=== PATIENT | female | born 1980 | race Caucasian/White ===

== ENCOUNTER 2021-01-14 10:17 | Emergency (ER) | payer OTHER, SELFPAY ==
[2021-01-14 11:21] VITALS: BP 157/88; PULSE 80; RESP 16; TEMP 37.1; O2SAT 100; BMI 23.6
--- NOTE | 2021-01-14 11:48 | ED.GENADULT ---
HPI - General Adult General Chief complaint: General Medical Stated complaint: rabies booster Time Seen by Provider: 01/14/21 11:47 Source: patient Mode of arrival: ambulatory Limitations: no limitations History of Present Illness HPI narrative: [age]-year-old female presenting to the ER for evaluation of a possible bat bite that occurred last night. She reports a history of potential rabies exposure in the past and has had full series of immunoglobulin and vaccine Related Data Home Medications Medication Instructions Recorded Confirmed norethindrone (contraceptive) 0.35 0.35 mg PO DAILY 05/12/20 mg tablet Previous Rx's Medication Instructions Recorded Ventolin HFA 90 mcg/actuation 2 puff PO Q4H PRN #18 g NS 12/31/20 aerosol inhaler (albuterol sulfate) montelukast 10 mg tablet 10 mg PO DAILY #90 tab 12/31/20 Allergies Allergy/AdvReac Type Severity Reaction Status Date / Time vancomycin Allergy Unknown itching Verified 01/14/21 11:20 thorat and wheezing PMFSH Past Medical History Medical History (Updated 05/12/20 @ 09:02 by Bashir Lu MD) Allergic rhinitis Surgical History History of placement of ear tubes History of tonsillectomy and adenoidectomy History of wisdom tooth extraction Family History Family History Father Skin cancer Hypertension CVD (cardiovascular disease) Mother Asthma Sister In good health Social History Social History (Updated 05/12/20 @ 08:45 by SABRINA Jenkins) Alcohol intake: current Alcohol intake frequency: a few times a week Physical Exam Vital Signs: Vital Signs: Last Vital Signs Temp 98.7 F 01/14/21 11:21 Pulse 80 01/14/21 11:21 Resp 16 01/14/21 11:21 BP 157/88 H 01/14/21 11:21 Pulse Ox 100 01/14/21 11:21 Body Mass Index 23.6 Discharge Plan Discharge Prescriptions: No Action montelukast 10 mg tablet 10 mg PO DAILY Qty: 90 RF: 1 albuterol sulfate [Ventolin HFA] 90 mcg/actuation HFA aerosol inhaler 2 puff PO Q4H PRN (Reason: for wheezing) Qty: 18 RF: 2
--- NOTE | 2021-01-14 12:08 | ED.GENADULT ---
HPI - General Adult General Chief complaint: General Medical Stated complaint: rabies booster Time Seen by Provider: 01/14/21 11:47 Source: patient Mode of arrival: ambulatory Limitations: no limitations History of Present Illness HPI narrative: Patient comes to the emergency room complaining a possible bat bite to her right hand. Patient states that yesterday she noticed there was something flying in her house, this morning she woke up with 2 small puncture wounds to the dorsum of the right hand. Patient states that in 2009 she had her full series of rabies vaccine including immune globulin. Then approximately 4 years ago, she had a booster on day 0 and 3 after she was bitten by an animal. Related Data Home Medications Medication Instructions Recorded Confirmed norethindrone (contraceptive) 0.35 0.35 mg PO DAILY 05/12/20 mg tablet Previous Rx's Medication Instructions Recorded Ventolin HFA 90 mcg/actuation 2 puff PO Q4H PRN #18 g NS 12/31/20 aerosol inhaler (albuterol sulfate) montelukast 10 mg tablet 10 mg PO DAILY #90 tab 12/31/20 Allergies Allergy/AdvReac Type Severity Reaction Status Date / Time vancomycin Allergy Unknown itching Verified 01/14/21 11:20 thorat and wheezing Review of Systems Review of Systems: Constitutional : No Weight loss, No Fever, No Chills, No Night Sweats, No Fatigue, No Malaise ENT/Mouth : No Hearing loss, No Ear Pain, No Nasal Congestion, No Sinus Pain, No Hoarseness, No sore throat, No Rhinorrhea, No Swallowing Difficulty Eyes: No Eye Pain, No Swelling, No Redness, No Foreign Body, No Discharge, No Vision Changes Cardiovascular : No Chest Pain, No SOB, No Dyspnea on Exertion, No Orthopnea, No Edema, No Palpitations Respiratory : No Cough, No Sputum, No Wheezing, No Smoke Exposure, No Dyspnea Gastrointestinal : No Nausea, No Vomiting, No Diarrhea, No Constipation, No abdominal Pain, No Hematochezia, No Melena Genitourinary : no irregular bleeding, No Dysuria, No Urinary Frequency, No Hematuria, No Urinary Incontinence, No Urgency, No Flank Pain, No Urinary Flow Changes, No Hesitancy Musculoskeletal : No joint pain, No Myalgias, No Joint Swelling Skin : 2 possible puncture wounds to the right hand Neuro : No Weakness, No Numbness, No Paresthesias, No Loss of Consciousness, No Dizziness, No Headache Psych : No Anxiety/Panic, No Depression, No SI/HI/AH/VH, No Social Issues, Heme/Lymph: No Bruising, No Bleeding,No Lymphadenopathy Endocrine : No Polyuria, No Polydipsia, No Temperature Intolerance [facility] Past Medical History Medical History Allergic rhinitis Surgical History History of placement of ear tubes History of tonsillectomy and adenoidectomy History of wisdom tooth extraction Family History Family History Father Skin cancer Hypertension CVD (cardiovascular disease) Mother Asthma Sister In good health Social History Social History (Updated 05/12/20 @ 08:45 by Morro Delgado [facility]) Alcohol intake: current Alcohol intake frequency: a few times a week Advance Directives: No Advance Directives Information Provided: No Physical Exam Vital Signs: Vital Signs: Last Vital Signs Temp 98.7 F 01/14/21 11:21 Pulse 80 01/14/21 11:21 Resp 16 01/14/21 11:21 BP 157/88 H 01/14/21 11:21 Pulse Ox 100 01/14/21 11:21 Body Mass Index 23.6 Const: Other: Appearance: Alert. Oriented X3. No acute distress. Eyes: Pupils equal, round and reactive to light. ENT: Pharynx normal. Neck: Normal inspection. Neck supple. No lymph nodes noted. No crepitus CVS: Normal heart rate and rhythm. Pulses normal. Normal S1 and S2 Respiratory: No respiratory distress. Breath sounds normal. No Wheezing. No rales Abdomen: Soft and nontender. No rigidity. No distention. good BS x4 Skin: Skin warm and dry. To the dorsum of the right hand there are 2 small puncture-like wound like injuries, no surrounding cellulitis Extremities: No lower extremity edema. No lower extremity edema. No Lacerations. No Rash Neuro: Oriented X 3. No motor deficit. No sensory deficit. Moving all extermities. No slurred speech. Course Course Course Narrative: I discussed the patient with Dr. Michael from Infectious Disease. Given the dates of the patient's previous immunizations and possible exposure to rabies from a bat bite Dr. Michael recommends to the immunoglobulin and the vaccination series on day 0, 3, 7, 14. Patient refuses to follow this recommendations, refuses immune globulin, she will only get the booster on day 0 and day 3. Patient has two possible puncture wounds to the right hand. It was explained to the patient that bats usually avoid bitting people, if the patient that actually bitten, there is a high possibility that the bat has rabies. Patient will be scheduled for blisters in short-stay on days 3, 7, 14. Patient was encouraged to follow Dr. Michael's recommendations. As mentioned above, patient states that she will only show up to the blister on day 3. Discharge Plan Discharge Clinical Impression: Rabies exposure Patient Disposition: Home, Self-Care Instructions: Rabies (ED), Rabies Vaccine (By injection) Additional Instructions: Our Infectious Disease doctor recommended that you get immunoglobulin and the full rabies vaccines. You declined immune globulin. You have been scheduled for outpatient blisters on day 3, 7, 14. Please follow-up with your primary care physician tomorrow. If you have any worsening or new symptoms, please return to the emergency room or call 911 Prescriptions: No Action montelukast 10 mg tablet 10 mg PO DAILY Qty: 90 RF: 1 albuterol sulfate [Ventolin HFA] 90 mcg/actuation HFA aerosol inhaler 2 puff PO Q4H PRN (Reason: for wheezing) Qty: 18 RF: 2
[2021-01-14] MEDS: Rabies Vaccine (PCEC)/PF 1 ML VIAL IM (14:09)
== END 2021-01-14 14:13 | disposition home or self-care (01) ==
PROVIDERS: Emergency Provider Emergency Medicine; PCP Internal Medicine
DX: Z20.3 Contact with and (suspected) exposure to rabies (principal); Z29.14 Encounter for prophylactic rabies immune globulin
CPT/HCPCS: 90471; 90675; 99283; 99284

== ENCOUNTER 2021-01-17 09:58 | Outpatient (REF) | payer OTHER, SELFPAY | END 2021-01-17 09:59 | disposition home or self-care (01) | LOC: HO.MDS 09:58 | PROVIDERS: PCP Internal Medicine | DX: Z29.14 Encounter for prophylactic rabies immune globulin (principal); S61.431D Puncture wound without foreign body of right hand, subsequent encounter; W53.81XD Bitten by other rodent, subsequent encounter; Z20.3 Contact with and (suspected) exposure to rabies | CPT/HCPCS: 90471; 90675 ==

== ENCOUNTER 2021-05-28 08:05 | Outpatient (REF) | payer OTHER, SELFPAY ==
[2021-05-28 11:02] LABS: MANUAL DIFF FLAG NO
[2021-05-28 11:08] LABS: Basophils Percent Auto 0.5 % (0-2); Eosinophils Percent Auto 0.1 % (0-4); Hematocrit 43.7 % (37.0-47.0); Hemoglobin 14.7 g/dl (12.0-16.0); Imm Gran Abs Auto 0.04 X10*3/uL (0.00-0.03); Imm Gran Pct Auto 0.5 % (0.0-0.4); Lymphocytes Absolute Auto 2.8 X10*3/uL (1.2-4.9); Lymphocytes Percent Auto 35.7 % (20-40); Mean Corpuscular HGB Conc 33.6 g/dl (31.0-35.0); Mean Platelet Volume 10.6 fL (9.4-12.3); Monocytes Absolute Auto 0.7 X10*3/uL (0.1-1.2); Monocytes Percent Auto 9.1 % (2-11); Neutrophils Absolute Auto 4.2 x10*3/uL (2.0-8.3); Neutrophils Percent Auto 54.1 % (45-73); Platelet Count 344 X10*3/uL (160-400); Red Blood Count 4.46 X10*6/uL (4.20-5.50); Red Cell Distribution Width 12.5 % (11.0-16.0); White Blood Count 7.7 X10*3/uL (4.8-10.8)
[2021-05-28 11:37] LABS: Alanine Aminotransferase 17 U/L (0-31); Albumin Level 4.4 g/dL (3.5-5.0); Alkaline Phosphatase 58 U/L (39-117); Anion Gap 11 (12-20); Aspartate Amino Transferase 17 U/L (5-31); Bilirubin Total 1.1 mg/dL (0.0-1.0); Blood Urea Nitrogen 12 mg/dL (9-16); Calcium 9.3 mg/dL (8.4-10.2); Carbon Dioxide 24 mmol/L (22-29); Chloride 107 mmol/L (96-108); Cholesterol 178 mg/dL; Estimated Glomerular Filt Rate > 60; Glucose Fasting 88 mg/dL (60-99); HDL Cholesterol 58 mg/dL; LDL Cholesterol Calculated 109 mg/dl; Potassium 4.7 mmol/L (3.3-5.1); Sodium 137 mmol/L (135-145); Total Protein 6.9 g/dL (6.5-8.0); Triglycerides 56 mg/dL
== END 2021-05-28 08:06 | disposition home or self-care (01) ==
LOC: HO.10HDL 08:05
PROVIDERS: Visit Provider Internal Medicine
DX: Z00.00 Encounter for general adult medical examination without abnormal findings (principal); J45.40 Moderate persistent asthma, uncomplicated
CPT/HCPCS: 36415; 80053; 80061; 85025

== ENCOUNTER 2021-06-19 07:49 | Outpatient (REF) | payer OTHER, SELFPAY ==
--- NOTE | 2021-06-19 14:51 | PFT_ITS ---
INDICATION: Asthma. SPIROMETRY: FEV1 to FVC of 85% with an FEV1 of 3.49 L with 115% predicted and an FVC of 4.1 L, which is 110% predicted. No significant response to bronchodilators noted. Maximum voluntary ventilation 121% predicted. LUNG VOLUMES: Total lung capacity 106% predicted. DIFFUSION CAPACITY: DLCO 170% predicted. COMPARISONS: None. INTERPRETATION: No obstructive nor restrictive ventilatory defects identified. No significant response to bronchodilators noted. Normal maximum voluntary ventilation. Normal lung volumes, in addition, to normal diffusion capacity. This is consistent with normal lung mechanics. If asthma is in the differential, methacholine challenge may be helpful in assessing for hyper-reactive airways, otherwise clinical correlation warranted. Jamie Nuno MD MR/MODL / [id number]
[2021-06-19 15:27] LABS: MANUAL DIFF FLAG NO
[2021-06-19 15:41] LABS: Basophils Percent Auto 0.3 % (0-2); Hematocrit 41.7 % (37.0-47.0); Hemoglobin 13.9 g/dl (12.0-16.0); Imm Gran Abs Auto 0.03 X10*3/uL (0.00-0.03); Imm Gran Pct Auto 0.3 % (0.0-0.4); Lymphocytes Percent Auto 31.4 % (20-40); Mean Corpuscular HGB Conc 33.3 g/dl (31.0-35.0); Mean Corpuscular Hemoglobin 33.1 pg (27.0-33.0); Mean Corpuscular Volume 99.3 fL (80.0-98.0); Mean Platelet Volume 10.1 fL (9.4-12.3); Monocytes Absolute Auto 0.6 X10*3/uL (0.1-1.2); Monocytes Percent Auto 6.7 % (2-11); Neutrophils Absolute Auto 5.8 x10*3/uL (2.0-8.3); Neutrophils Percent Auto 61.3 % (45-73); Platelet Count 352 X10*3/uL (160-400); White Blood Count 9.4 X10*3/uL (4.8-10.8)
== END 2021-06-19 07:50 | disposition home or self-care (01) ==
LOC: HO.RESP 07:49
PROVIDERS: Absent Provider Internal Medicine Pulmonary Disease; PCP Internal Medicine; Visit Provider Internal Medicine
DX: J45.40 Moderate persistent asthma, uncomplicated (principal)
CPT/HCPCS: 36415; 82785; 85025; 86003; 94060; 94727; 94729

== ENCOUNTER → 2021-07-03 15:29 | Outpatient (BNVA) | payer OTHER, SELFPAY | PROVIDERS: PCP Internal Medicine; Visit Provider Internal Medicine Pulmonary Disease | DX: Z13.89 Encounter for screening for other disorder (principal) ==

== ENCOUNTER 2023-02-14 12:53 | Outpatient (REF) | payer OTHER, SELFPAY ==
[2023-02-14 13:10] LABS: MANUAL DIFF FLAG NO
[2023-02-14 14:45] LABS: Basophils Percent Auto 0.4 % (0-2); Hematocrit 41.3 % (37.0-47.0); Hemoglobin 14.2 g/dl (12.0-16.0); Imm Gran Abs Auto 0.04 X10*3/uL (0.00-0.03); Imm Gran Pct Auto 0.4 % (0.0-0.4); Lymphocytes Absolute Auto 3.4 X10*3/uL (1.2-4.9); Lymphocytes Percent Auto 31.4 % (20-40); Mean Corpuscular HGB Conc 34.4 g/dl (31.0-35.0); Mean Corpuscular Hemoglobin 32.6 pg (27.0-33.0); Mean Corpuscular Volume 94.7 fL (80.0-98.0); Mean Platelet Volume 10.8 fL (9.4-12.3); Monocytes Absolute Auto 0.6 X10*3/uL (0.1-1.2); Monocytes Percent Auto 5.2 % (2-11); Neutrophils Absolute Auto 6.7 x10*3/uL (2.0-8.3); Neutrophils Percent Auto 62.6 % (45-73); Platelet Count 341 X10*3/uL (160-400); Red Blood Count 4.36 X10*6/uL (4.20-5.50); Red Cell Distribution Width 11.6 % (11.0-16.0); White Blood Count 10.7 X10*3/uL (4.8-10.8)
[2023-02-14 15:19] LABS: Alanine Aminotransferase 17 U/L (0-31); Albumin Level 4.3 g/dL (3.5-5.0); Alkaline Phosphatase 52 U/L (39-117); Anion Gap 13 (12-20); Aspartate Amino Transferase 22 U/L (5-31); Bilirubin Total 0.3 mg/dL (0.0-1.0); Blood Urea Nitrogen 10 mg/dL (9-16); Calcium 9.1 mg/dL (8.4-10.2); Carbon Dioxide 25 mmol/L (22-29); Chloride 105 mmol/L (96-108); Cholesterol 198 mg/dL (<200); Estimated Glomerular Filt Rate > 60; Glucose Fasting 93 mg/dL (60-99); HDL Cholesterol 57 mg/dL (>40); LDL Cholesterol Calculated 127 mg/dL (<100); Potassium 3.5 mmol/L (3.3-5.1); Sodium 139 mmol/L (135-145); Total Protein 7.3 g/dL (6.5-8.0); Triglycerides 72 mg/dL (<150)
[2023-02-14 15:35] LABS: TSH reflex Free T4 1.35 uIU/mL (0.32-4.0)
[2023-02-14 15:46] LABS: Folate 12.6 ng/mL (> or = 4.0); Vitamin B12 731 pg/mL (200-900)
== END 2023-02-14 12:54 | disposition home or self-care (01) ==
LOC: HO.LAB 12:53
PROVIDERS: PCP Internal Medicine; Visit Provider Nurse Practitioner Family
DX: Z00.00 Encounter for general adult medical examination without abnormal findings (principal); Z13.1 Encounter for screening for diabetes mellitus; Z13.29 Encounter for screening for other suspected endocrine disorder; Z13.220 Encounter for screening for lipoid disorders; Z20.2 Contact with and (suspected) exposure to infections with a predominantly sexual mode of transmission; E55.9 Vitamin D deficiency, unspecified; J45.40 Moderate persistent asthma, uncomplicated; Z91.09 Other allergy status, other than to drugs and biological substances
CPT/HCPCS: 36415; 80053; 80061; 82306; 82607; 82746; 84443; 85025

== ENCOUNTER 2023-12-13 09:25 | Outpatient (AMB) | payer OTHER, SELFPAY ==
--- NOTE | 2023-12-13 09:27 | MHC.PC.OV ---
Vital Signs 12/13/23 09:28 Height 5 ft 4 in Weight 127 lb BMI 21.8 BP 138/86 Blood Pressure Location Lt brachial Position Sitting Intake Visit Reasons: persistent headaches Intake Note: Persistent headaches, anxious, had a concussion Film Sorter Required: No Accompanied by: Self / Same As Patient Allergies vancomycin Allergy (Unknown, Verified 12/13/23 09:40) itching thorat and wheezing Medication List - Last Reconciled 12/13/23 by Emma Jarvis MD albuterol sulfate 90 mcg/actuation 2 puffs inhalation Q4-6H PRN cholecalciferol (vitamin D3) 25 mcg PO DAILY montelukast 10 mg PO DAILY Tobacco use date assessed: 12/13/23 Dental Screening Dental Screen Date: 12/13/23 Did you have a dental visit in the last 12 months?: Yes Did you have a dental problem in the last 6 months where you did not have access to dental care?: No Was dental information given to patient?: Patient has dentist HPI HPI Comments History of Present Illness Details This is a 43-year-old female that comes today complaining of persistent headaches that starts in the occiput and radiate to the temples bilateral and this started after an incident that happened 10/13/2023 in which a dog jump on her head. She went to emergency room at [facility] and had head CT and neck CT that were negative. Since then she has been having daily headaches. She also has noticed light sensitivity and forgetting basic words when trying to talk. Has fatigue and tiredness. Has developed mild major depression and anxiety as well as occasional panic attacks. The neck pain radiates to the shoulders but has full active range of motion. Had numbness at the beginning but not anymore. She also has chest tightness that happens at rest and I will order EKG. For the headaches and depression I will start her on amitriptyline at bedtime for migraine prophylaxis also. Will also give magnesium and sumatriptan as needed. Will be referred to Neurology and MRI of the brain will be ordered. For the anxiety I will give her a benzodiazepine as needed and patient is aware that it can cause addiction, sedation and memory loss. I will refer her to physical therapy for her neck pain. Will give her Flexeril because it has helped in the past. [facility] Medical History (Updated 12/13/23 @ 12:22 by Emma Jarvis MD) Moderate persistent asthma, uncomplicated Allergic rhinitis Surgical History History of delivery History of esophagogastroduodenoscopy (EGD) History of breast biopsy History of wisdom tooth extraction History of placement of ear tubes History of tonsillectomy and adenoidectomy Family History Father Skin cancer Hypertension CVD (cardiovascular disease) Mother Asthma Hypothyroidism Sister In good health Social History Housing: House Alcohol intake: current Alcohol intake frequency: a few times a week Alcohol type: wine and hard liquor Patient Tobacco Use Status: Never used Tobacco e-Cigarette/Vaping Use: Currently Using (sometimes) Second Hand Smoke Exposure: No service: No Current occupational status: employed Current occupational exposures/hazards: No Cognitive needs: No Hearing needs: No Vision needs: No Questionnaire PHQ-9 Over the last 2 weeks, how often have you been bothered by any of the following problems? 1. Little interest or pleasure in doing things: not at all 2. Feeling down, depressed, or hopeless: not at all 3. Trouble falling or staying asleep, or sleeping too much: several days 4. Feeling tired or having little energy: several days 5. Poor appetite or overeating: not at all 6. Feeling bad about yourself - or that you are a failure or have let yourself or your family down: not at all 7. Trouble concentrating on things, such as reading the newspaper or watching television: several days 8. Moving or speaking so slowly that other people could have noticed. Or the opposite - being so fidgety or restless that you have been moving around a lot more than usual: several days 9. Thoughts that you would be better off or of hurting yourself in some way: not at all Total score: 4 Depression Screening Interpretation: Positive Depression Screening Follow-up: Existing condition, New Medication prescribed and Follow-up Visit Requested Depression Screening Done: Yes [id number] - PHQ-9 Billing: Yes Source: Developed by Drs. Tomy Quesada, Clarisa BJani Rivers and colleagues, with an educational connor from [employer]. Thrive Questionnaire Date Thrive assessed: 12/13/23 I am a: Patient What is your living situation today?: I have a steady place to live Within the past 12 months, did the food you bought not last and you didn't have the money to get more?: Never true Within the past 12 months, did you worry whether your food would run out before you got money to buy more?: Never true Do you have trouble paying for medicines?: No Do you have trouble getting transportation to medical appointments?: No Do you have trouble paying your heating and electricity bill?: No Do you have trouble taking care of your child, family member or friend?: No Do you have trouble with day-to-day activities such as bathing, preparing meals, shopping, managing finances, etc.?: No Are you currently unemployed and looking for a job?: No Are you interested in more education?: No Please select the resources that you would like help with: None Currently or been in a relationship where the following occur: No concerns reported THRIVE Score: 0 AUDIT C Alcohol Use Questionnaire (AUDIT-C) 1. How often do you have a drink containing alcohol?: 4 or more times a week 2. How many drinks containing alcohol do you have on a typical day when you are drinking?: 1 or 2 3. How often do you have six or more drinks on one occasion?: Never Total Score: 4 JENNIFER-7 AMB Questionnaire JENNIFER-7 Date JENNIFER - 7 assessed: 12/13/23 Feeling nervous, anxious, or on edge: 2 = More than half the days Not being able to stop or control worryin = Not at all Worrying too much about different things: 0 = Not at all Trouble relaxin = Several days Being so restless that it is hard to sit still: 1 = Several days Becoming easily annoyed or irritable: 3 = Nearly every day Feeling afraid as if something awful might happen: 0 = Not at all Total JENNIFER-7 score (0-4 normal; 5-9 mild; 10-14 moderate; 15-21 severe): 7 Source: Developed by Drs. Tomy Quesada, Jani Cifuentes and colleagues, with an educational connor from [employer]. JENNIFER-7 Assessment Billing JENNIFER-7 Assessment Tool: JENNIFER-7 Assessment 01409 Review of Systems Const All systems reviewed & are unremarkable except as noted in HPI and below Reports fatigue, Reports headache(s) and Reports poor appetite ENT Reports headache(s) and Reports neck pain Card Reports chest pain at rest, Denies chest pain with activity, Denies edema, Denies irregular heart rhythm, Denies claudication, Denies dyspnea, Denies dyspnea on exertion, Denies orthopnea, Denies paroxysmal nocturnal dyspnea and Denies slow heart rate Resp Denies cough, Denies dyspnea and Denies dyspnea on exertion GI Denies abdominal pain, Denies change in bowel habits, Denies excessive flatus, Denies nausea and Denies vomiting Musc Reports neck pain Skin/Breast Reports alopecia Neuro Reports confusion and Reports headache(s) Psych Reports abnormal sleep pattern, Reports anxiety, Reports confusion, Reports depression and Reports panic attacks Endo Reports fatigue Physical exam (Primary Care) Vital Signs: Last Vital Signs BP 138/86 12/13/23 09:28 BMI result Body Mass Index 21.8 Tobacco/Smoking Status: Tobacco use Status Tobacco use date assessed 12/13/23 12/13/23 09:34 Patient Tobacco Use Status Never used Tobacco 12/13/23 09:34 e-Cigarette/Vaping Use Currently Using (sometimes) 12/13/23 09:34 PHQ-9: PHQ-9 Score PHQ-9: Total score 4 12/13/23 09:43 Depression Screening Interpretation: Positive Depression Screening Follow-up: Existing condition, New Medication prescribed and Follow-up Visit Requested Thrive Assessment: Date of Thrive Assessment Date Thrive assessed 12/13/23 12/13/23 09:34 Currently or been in a relationship where the following occur: No concerns reported Const General: confusion Orientation/consciousness: confusion Eyes Alignment and Position: alignment normal Pupils: Equal, round and reactive pupils present Neck Neck: Yes normal visual inspection and Yes supple Resp Effort & Inspection: normal respiratory effort Auscultation: clear to auscultation bilaterally Cardio Jugular venous distension: no JVD Rate: regular rate Rhythm: regular rhythm Heart sounds: S1 normal heart sound present and S2 normal heart sound present Neuro General: no focal motor deficits and confusion Cranial nerves: Yes Equal, round and reactive pupils present Cognition (Neuro): normal cognition Gait exam (Neuro): Normal gait present Motor exam (neuro): 5/5 motor strength present throughout Extrem General: Yes full ROM Assessment and Plan Assessment & Plan (1) Persistent headaches: Code(s): R51.9 - Headache, unspecified Plan: Start amitriptyline at bedtime for migraine prophylaxis. Start sumatriptan as needed. Start magnesium at bedtime. MRI of the brain ordered. Referred to neurology. (2) Neck pain: Code(s): M54.2 - Cervicalgia Plan: Start physical therapy. Start cyclobenzaprine as needed. (3) Hair loss: Code(s): L65.9 - Nonscarring hair loss, unspecified Plan: TSH ordered. (4) Chest pain: Code(s): R07.9 - Chest pain, unspecified Qualifiers: Chest pain type: chest pain on breathing Qualified Code(s): R07.1 - Chest pain on breathing Plan: EKG ordered. (5) Mild major depression: Code(s): F32.0 - Major depressive disorder, single episode, mild Plan: Start amitriptyline. (6) JENNIFER (generalized anxiety disorder): Code(s): F41.1 - Generalized anxiety disorder Plan: Start benzodiazepines as needed. Orders: Orders Thyroid Stimulating Hormone Today L65.9 - Nonscarring hair loss, unspecified Complete Blood Count Auto Diff Today R51.9 - Headache, unspecified ECG 12 lead EKG Today R07.9 - Chest pain, unspecified MR head/brain wo con Today R51.9 - Headache, unspecified Vitamin D 25-OH Total Today E55.9 - Vitamin D deficiency, unspecified Comprehensive Met. Panel Today R51.9 - Headache, unspecified PT Evaluation and Treatment Today M54.2 - Cervicalgia Referrals Neurology Referral R51.9 - Headache, unspecified Medications: New lorazepam 0.5 mg PO DAILY 30 days PRN 20 tabs 0RF anxiety sumatriptan succinate do not exceed 8 doses per 24 hrs 25 mg PO Q2-4H 30 days PRN 9 tabs 2RF migraine headache R51.9 - Headache, unspecified cyclobenzaprine 10 mg PO BEDTIME 30 days PRN 30 tabs 0RF muscle spasm amitriptyline 10 mg PO BEDTIME 90 days 90 tabs 0RF R51.9 - Headache, unspecified magnesium oxide 400 mg PO DAILY 30 days 30 tabs 0RF R51.9 - Headache, unspecified Coding Level of Care Code Est Pt Level 4 (30943) Complex EM visit Add On G2211 Diagnoses Persistent headaches R51.9 Neck pain M54.2 Hair loss L65.9 Chest pain on breathing R07.1 Chest pain type: chest pain on breathing Mild major depression F32.0 JENNIFER (generalized anxiety disorder) F41.1 Additional Codes JENNIFER-7 Assessment Billing - JENNIFER-7 Assessment Tool: JENNIFER-7 Assessment 04034 ([id number]) Time Spent (min) 25
[2023-12-13 09:28] VITALS: BP 138/86; BMI 21.8
== END 2023-12-13 10:01 | disposition home or self-care (01) ==
PROVIDERS: PCP Internal Medicine; Visit Provider Internal Medicine
DX: R51.9 Headache, unspecified (principal); M54.2 Cervicalgia; L65.9 Nonscarring hair loss, unspecified; R07.1 Chest pain on breathing; F32.0 Major depressive disorder, single episode, mild; F41.1 Generalized anxiety disorder
CPT/HCPCS: 96127; 99214; G2211

== ENCOUNTER 2023-12-19 10:27 | Outpatient (REF) | payer OTHER, SELFPAY ==
[2023-12-19 13:18] LABS: MANUAL DIFF FLAG NO
[2023-12-19 13:26] LABS: Basophils Percent Auto 0.6 % (0-2); Hematocrit 40.3 % (37.0-47.0); Imm Gran Abs Auto 0.01 X10*3/uL (0.00-0.03); Imm Gran Pct Auto 0.2 % (0.0-0.4); Lymphocytes Absolute Auto 2.2 X10*3/uL (1.2-4.9); Lymphocytes Percent Auto 44.2 % (20-40); Mean Corpuscular HGB Conc 34.7 g/dl (31.0-35.0); Mean Corpuscular Hemoglobin 33.8 pg (27.0-33.0); Mean Corpuscular Volume 97.3 fL (80.0-98.0); Mean Platelet Volume 10.6 fL (9.4-12.3); Monocytes Absolute Auto 0.4 X10*3/uL (0.1-1.2); Monocytes Percent Auto 8.4 % (2-11); Neutrophils Absolute Auto 2.3 x10*3/uL (2.0-8.3); Neutrophils Percent Auto 46.6 % (45-73); Platelet Count 286 X10*3/uL (160-400); Red Blood Count 4.14 X10*6/uL (4.20-5.50); Red Cell Distribution Width 12.3 % (11.0-16.0); White Blood Count 4.9 X10*3/uL (4.8-10.8)
[2023-12-19 13:56] LABS: Alanine Aminotransferase 22 U/L (0-31); Albumin Level 4.5 g/dL (3.5-5.0); Alkaline Phosphatase 55 U/L (39-117); Anion Gap 12 (12-20); Aspartate Amino Transferase 23 U/L (5-31); Bilirubin Total 0.6 mg/dL (0.0-1.0); Blood Urea Nitrogen 11 mg/dL (9-16); Calcium 9.5 mg/dL (8.4-10.2); Carbon Dioxide 25 mmol/L (22-29); Chloride 107 mmol/L (96-108); Estimated Glomerular Filt Rate > 60; Glucose Random 99 mg/dL (60-115); Potassium 4.4 mmol/L (3.3-5.1); Sodium 140 mmol/L (135-145); Total Protein 7.2 g/dL (6.5-8.0)
[2023-12-19 14:06] LABS: Thyroid Stimulating Hormone 1.64 uIU/mL (0.32-4.0); Vitamin D 25-OH Total 32.6 ng/mL (>30)
== END 2023-12-19 10:28 | disposition home or self-care (01) ==
LOC: HO.10HDL 10:27
PROVIDERS: Visit Provider Internal Medicine
DX: E55.9 Vitamin D deficiency, unspecified (principal); R51.9 Headache, unspecified; L65.9 Nonscarring hair loss, unspecified
CPT/HCPCS: 36415; 80053; 82306; 84443; 85025

== ENCOUNTER 2024-01-02 19:50 | Outpatient (REF) | payer OTHER, SELFPAY ==
--- NOTE | ~2024-01-02 | MR_ITS ---
EXAMINATION: MR BRAIN WITHOUT CONTRAST CLINICAL INFORMATION: Headache. COMPARISON: None available. TECHNIQUE: MRI of the brain was obtained using routine sequences without contrast. FINDINGS: No restricted diffusion. No acute intracranial hemorrhage, mass effect, midline shift, hydrocephalus or herniation. Mendoza-white matter differentiation is normal. Posterior cranial fossa contents demonstrated no acute abnormality or signal abnormality. Sellar/suprasellar region is normal. Craniocervical junction is normal. Flow-void signal within the mean cerebral vessels is normal. MR/MR head/brain wo con IMPRESSION: No acute or structural brain abnormality. Electronically signed by: Chema Phan MD 02/02/2024 03:42 PM EDT
== END 2024-01-02 19:51 | disposition home or self-care (01) ==
LOC: HO.MRI 19:50
PROVIDERS: PCP Internal Medicine; Visit Provider Internal Medicine
DX: R51.9 Headache, unspecified (principal)
CPT/HCPCS: 70551

== ENCOUNTER → 2024-01-02 19:50 | Outpatient (BNV) | payer OTHER, SELFPAY | PROVIDERS: PCP Internal Medicine; Visit Provider Radiology Diagnostic Radiology | DX: R51.9 Headache, unspecified (principal) | CPT/HCPCS: 70551 ==

== ENCOUNTER 2024-02-24 08:03 | Outpatient (REF) | payer OTHER, SELFPAY ==
[2024-02-24 08:23] LABS: MANUAL DIFF FLAG NO
[2024-02-24 08:48] LABS: Basophils Percent Auto 0.5 % (0-2); Eosinophils Percent Auto 0.2 % (0-4); Hematocrit 39.9 % (37.0-47.0); Hemoglobin 13.7 g/dl (12.0-16.0); Imm Gran Abs Auto 0.01 X10*3/uL (0.00-0.03); Imm Gran Pct Auto 0.2 % (0.0-0.4); Lymphocytes Absolute Auto 2.3 X10*3/uL (1.2-4.9); Lymphocytes Percent Auto 37.6 % (20-40); Mean Corpuscular HGB Conc 34.3 g/dl (31.0-35.0); Mean Corpuscular Hemoglobin 32.6 pg (27.0-33.0); Mean Platelet Volume 10.3 fL (9.4-12.3); Monocytes Absolute Auto 0.5 X10*3/uL (0.1-1.2); Monocytes Percent Auto 8.6 % (2-11); Neutrophils Absolute Auto 3.3 x10*3/uL (2.0-8.3); Neutrophils Percent Auto 52.9 % (45-73); Platelet Count 319 X10*3/uL (160-400); Red Cell Distribution Width 11.9 % (11.0-16.0); White Blood Count 6.2 X10*3/uL (4.8-10.8)
[2024-02-24 09:15] LABS: Alanine Aminotransferase 40 U/L (0-31); Albumin Level 4.4 g/dL (3.5-5.0); Alkaline Phosphatase 63 U/L (39-117); Anion Gap 10 (12-20); Aspartate Amino Transferase 29 U/L (5-31); Bilirubin Total 0.7 mg/dL (0.0-1.0); Blood Urea Nitrogen 11 mg/dL (9-16); Calcium 9.3 mg/dL (8.4-10.2); Carbon Dioxide 24 mmol/L (22-29); Chloride 108 mmol/L (96-108); Estimated Glomerular Filt Rate > 60; Glucose Random 99 mg/dL (60-115); Potassium 4.3 mmol/L (3.3-5.1); Sodium 138 mmol/L (135-145); Total Protein 6.7 g/dL (6.5-8.0)
== END 2024-02-24 08:04 | disposition home or self-care (01) ==
LOC: HO.LAB 08:03
PROVIDERS: Nurse Practitioner Family; PCP Internal Medicine; Visit Provider Internal Medicine
DX: E27.40 Unspecified adrenocortical insufficiency (principal); R79.89 Other specified abnormal findings of blood chemistry
CPT/HCPCS: 36415; 80053; 82306; 85025

== ENCOUNTER 2024-02-25 11:15 | Outpatient (REF) | payer OTHER, SELFPAY | END 2024-02-25 11:16 | disposition home or self-care (01) | LOC: HO.LNP 11:15 | PROVIDERS: Visit Provider Internal Medicine | DX: Z13.89 Encounter for screening for other disorder (principal) ==

== ENCOUNTER 2024-03-06 17:23 | Outpatient (AMB) | payer OTHER, SELFPAY ==
[2024-03-06 17:27] VITALS: BP 122/80; BMI 21.3
--- NOTE | 2024-03-06 17:27 | A.OFFPC_ITS ---
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 Required: No Accompanied by: Self / Same As Patient Allergies vancomycin Allergy (Unknown, Verified 03/06/24 17:36) itching thorat and wheezing amitriptyline Adverse Reaction (Intermediate, Verified 03/06/24 17:42) tiredness sumatriptan Adverse Reaction (Intermediate, Verified 03/06/24 17:42) over alert Medication List - Last Reconciled 03/06/24 by Emma Jarvis MD albuterol sulfate 90 mcg/actuation 2 puffs inhalation Q4-6H PRN cholecalciferol (vitamin D3) 25 mcg PO DAILY cyclobenzaprine 10 mg PO BEDTIME PRN 30 days lorazepam 0.5 mg PO DAILY PRN 30 days magnesium oxide 400 mg PO DAILY 30 days montelukast 10 mg PO DAILY sumatriptan succinate 25 mg PO Q2-4H PRN 30 days Tobacco use date assessed: 12/13/23 Dental Screening Dental Screen Date: 12/13/23 HPI HPI Comments History of Present Illness Details The patient is a 43-year-old female presenting coming for her physical exam with ongoing low-level tension headaches and neck discomfort. These symptoms have improved following physical therapy but persist as a dull tension sensation. She expresses experiencing heightened alertness and emotional discomfort after taking Sumatriptan, leading her to discontinue its use. Her health history includes a recent section in 2022, previous endoscopy in 2010, breast biopsy in 2019, ear tube placement as a child, and a tonsillectomy with adenoid removal. Regarding familial health, her mother has hypothyroidism and asthma, while her father suffers from skin cancer, high blood pressure, and heart disease. Regarding her current medications, she experiences Vitamin D deficiency despite daily supplementation, which has been affected by seasonal changes. She has a history of anxiety, worsened by thyroid concerns, for which she takes Lorazepam. She reports chest tightness and her hands occasionally falling asleep, presumably explaining intermittent symptoms of nausea and headaches. She has observed red spots on her body, likely stein angiomas, and has experienced dizziness, double vision, and abdominal discomfort, prompting her to seek referral to a rn transition for further evaluation. - Recent mammogram performed this past [facility], results normal. - Pap smear pending for an annual exam s cheduled in May. - Blood work indicated elevated liver en zymes (ALT rise from 22 to 40), Vitamin D deficiency. - Cortisol test was canceled and needs t o be repeated. [facility] Medical History (Updated 03/06/24 @ 17:56 by Emma Jarvis MD) Moderate persistent asthma, uncomplicated Allergic rhinitis Surgical History (Updated 03/06/24 @ 17:43 by Emma Jarvis MD) Status post surgical removal of both fallopian tubes History of delivery History of esophagogastroduodenoscopy (EGD) History of breast biopsy History of wisdom tooth extraction History of placement of ear tubes History of tonsillectomy and adenoidectomy Family History Father Skin cancer Hypertension CVD (cardiovascular disease) Mother Asthma Hypothyroidism Sister In good health Social History Housing: House Alcohol intake: current Alcohol intake frequency: a few times a week Alcohol type: wine and hard liquor Patient Tobacco Use Status: Never used Tobacco e-Cigarette/Vaping Use: Currently Using Second Hand Smoke Exposure: No service: No Current occupational status: employed Current occupational exposures/hazards: No Cognitive needs: No Hearing needs: No Vision needs: No Questionnaire PHQ-9 Over the last 2 weeks, how often have you been bothered by any of the following problems? 1. Little interest or pleasure in doing things: not at all 2. Feeling down, depressed, or hopeless: not at all 3. Trouble falling or staying asleep, or sleeping too much: not at all 4. Feeling tired or having little energy: nearly every day 5. Poor appetite or overeating: not at all 6. Feeling bad about yourself - or that you are a failure or have let yourself or your family down: not at all 7. Trouble concentrating on things, such as reading the newspaper or watching television: not at all 8. Moving or speaking so slowly that other people could have noticed. Or the opposite - being so fidgety or restless that you have been moving around a lot more than usual: not at all 9. Thoughts that you would be better off or of hurting yourself in some way: not at all Total score: 3 Depression Screening Interpretation: Positive Depression Screening Follow-up: Follow-up Visit Requested Depression Screening Done: Yes 59019 - PHQ-9 Billing: Yes Source: Developed by Drs. Tomy Quesada, Clarisa Ly, Jani Osuna and colleagues, with an educational connor from [employer]. Thrive Questionnaire Date Thrive assessed: 12/13/23 I am a: Patient What is your living situation today?: I have a steady place to live Within the past 12 months, did the food you bought not last and you didn't have the money to get more?: Never true Within the past 12 months, did you worry whether your food would run out before you got money to buy more?: Never true Do you have trouble paying for medicines?: No Do you have trouble getting transportation to medical appointments?: No Do you have trouble paying your heating and electricity bill?: No Do you have trouble taking care of your child, family member or friend?: No Do you have trouble with day-to-day activities such as bathing, preparing meals, shopping, managing finances, etc.?: No Are you currently unemployed and looking for a job?: No Are you interested in more education?: No Please select the resources that you would like help with: None Currently or been in a relationship where the following occur: No concerns reported THRIVE Score: 0 AUDIT C Alcohol Use Questionnaire (AUDIT-C) 1. How often do you have a drink containing alcohol?: 2-3 times a week 2. How many drinks containing alcohol do you have on a typical day when you are drinking?: 1 or 2 3. How often do you have six or more drinks on one occasion?: Never Total Score: 3 JENNIFER-7 AMB Questionnaire JENNIFER-7 Date JENNIFER - 7 assessed: 12/13/23 Feeling nervous, anxious, or on edge: 1 = Several days Not being able to stop or control worryin = Not at all Worrying too much about different things: 0 = Not at all Trouble relaxin = Not at all Being so restless that it is hard to sit still: 0 = Not at all Becoming easily annoyed or irritable: 1 = Several days Feeling afraid as if something awful might happen: 0 = Not at all Total JENNIFER-7 score (0-4 normal; 5-9 mild; 10-14 moderate; 15-21 severe): 2 Source: Developed by Drs. Tomy Quesada, Clarisa Ly, Jani Osuna and colleagues, with an educational connor from [employer]. JENNIFER-7 Assessment Billing JENNIFER-7 Assessment Tool: JENNIFER-7 Assessment 64693 Review of Systems Const All systems reviewed & are unremarkable except as noted in HPI and below Card Denies chest pain at rest, Denies chest pain with activity, Denies edema, Denies irregular heart rhythm, Denies claudication, Denies dyspnea, Denies dyspnea on exertion, Denies orthopnea, Denies paroxysmal nocturnal dyspnea and Denies slow heart rate Resp Denies cough, Denies dyspnea and Denies dyspnea on exertion GI Denies abdominal pain, Denies change in bowel habits, Denies excessive flatus, Denies nausea and Denies vomiting Denies urinary incontinence, Denies urinary hesitancy and Denies urinary urgency Musc Denies abnormal gait, Denies atrophy, Denies deformity and Denies limited range of motion Skin/Breast Denies bleeding lesions, Denies changing lesions and Denies rash Neuro Denies abnormal gait, Denies behavioral changes and Denies lack of coordination Psych Denies behavioral changes Physical exam (Primary Care) Vital Signs: Last Vital Signs BP 122/80 03/06/24 17:27 BMI result Body Mass Index 21.3 Tobacco/Smoking Status: Tobacco use Status Tobacco use date assessed 12/13/23 03/06/24 17:32 Patient Tobacco Use Status Never used Tobacco 03/06/24 17:32 e-Cigarette/Vaping Use Currently Using 03/06/24 17:32 PHQ-9: PHQ-9 Score PHQ-9: Total score 3 03/06/24 17:45 Depression Screening Interpretation: Positive Depression Screening Follow-up: Follow-up Visit Requested Thrive Assessment: Date of Thrive Assessment Date Thrive assessed 12/13/23 03/06/24 17:32 Currently or been in a relationship where the following occur: No concerns reported HENMT Head: Yes normal to inspection, Yes normocephalic and Yes atraumatic Ears: external ears normal Eyes General: appearance normal, both eyes and all related structures Eyelids: Yes eyelids normal Conjunctivae: conjunctivae normal Neck Neck: Yes normal visual inspection and Yes supple Resp Effort & Inspection: normal respiratory effort Auscultation: clear to auscultation bilaterally Cardio Jugular venous distension: no JVD Rate: regular rate Rhythm: regular rhythm Heart sounds: S1 normal heart sound present and S2 normal heart sound present GI Inspection: Yes normal to inspection Palpation (GI): Soft to palpation and nontender Auscultation: normal bowel sounds Skin General skin exam: no rashes or lesions noted Neuro General: no focal motor deficits Extrem General: Yes full ROM Psych Appearance: grossly normal Coding Level of Care Code Est Pt Level 3 (40885) Est Pt Prev Care 40-64y(32446) Diagnoses Adult general medical exam Z00.00 Paresthesia R20.2 Abdominal cramps R10.9 Transaminitis R74.01 Additional Codes JENNIFER-7 Assessment Billing - JENNIFER-7 Assessment Tool: JENNIFER-7 Assessment 09131 ([id number]) PHQ-9 - 05750 - PHQ-9 Billing: Yes ([id number]) Time Spent (min) 35 Assessment & Plan Assessment & Plan (1) Adult general medical exam: Code(s): Z00.00 - Encounter for general adult medical examination without abnormal findings Category: Medical Plan: Repeat in a year. (2) Paresthesia: Code(s): R20.2 - Paresthesia of skin Category: Medical Plan: Nerve conduction study ordered. (3) Abdominal cramps: Code(s): R10.9 - Unspecified abdominal pain Category: Medical Plan: REfer to GI. (4) Transaminitis: Code(s): R74.01 - Elevation of levels of liver transaminase levels Category: Medical Plan: Repeat liver panel and if elevated then us abd will be order. Orders: Orders Liver Panel Today R74.01 - Elevation of levels of liver transaminase levels NE nerve conduction velocity Today R20.2 - Paresthesia of skin Referrals Gastroenterology Referral R10.9 - Unspecified abdominal pain Patient Instructions: - Schedule and maintain follow-up appointments as discussed. - Continue with prescribed Vitamin D supplements. - Monitor symptoms, especially related to liver health and report significant changes. - Undergo nerve conduction study and prepare for a gastroenterology consultation. - Await communication regarding scheduling for these referrals.
--- OUTSIDE RECORDS SUMMARY | 2024-03-13 15:57 | XMS_ITS ---
Author Name [facility] Organization Unknown History of Medication Use Medication Directions Dispensed Refills Start Date End Date Stat us ondansetron (ZOFRAN-ODT) 4 MG disintegrating tablet Take 1 tablet (4 mg total) by mouth 3 times daily (every 8 hours) as needed for nausea or vomiting. Place tablet on tongue to dissolve. 10/18/2023 active ibuprofen (MOTRIN) 600 MG tablet Take 1 tablet (600 mg total) by mouth 4 times daily (every 6 hours) as needed for mild pain. 10/18/2023 active montelukast (SINGULAIR) 10 MG tablet Take 10 mg by mouth nightly. 10/18/2023 active cyclobenzaprine (FLEXERIL) 10 MG tablet Take 1 tablet (10 mg total) by mouth 3 times daily (every 8 hours) as needed for muscle spasms. 10/18/2023 active Problems Problem Status Onset Date Problem Type Date of Resoluti on Source Concussion without loss of consciousness, initial encounter active [facility]
== END 2024-03-06 17:59 | disposition home or self-care (01) ==
PROVIDERS: PCP Internal Medicine; Visit Provider Internal Medicine
DX: Z00.00 Encounter for general adult medical examination without abnormal findings (principal); R20.2 Paresthesia of skin; R10.9 Unspecified abdominal pain; R74.01 Elevation of levels of liver transaminase levels

== ENCOUNTER → 2024-03-06 17:23 | Outpatient (BNVA) | payer OTHER, SELFPAY | PROVIDERS: PCP Internal Medicine; Visit Provider Internal Medicine | DX: Z00.00 Encounter for general adult medical examination without abnormal findings (principal); R20.2 Paresthesia of skin; R10.9 Unspecified abdominal pain; R74.01 Elevation of levels of liver transaminase levels | CPT/HCPCS: 96127 ==

== ENCOUNTER 2024-03-07 09:25 | Outpatient (REF) | payer OTHER, SELFPAY ==
[2024-03-15 14:38] LABS: Saliva Cortisol 0.14 mcg/dL
== END 2024-03-07 09:26 | disposition home or self-care (01) ==
LOC: HO.LNP 09:25
PROVIDERS: Visit Provider Internal Medicine
DX: E27.40 Unspecified adrenocortical insufficiency (principal)
CPT/HCPCS: 82530

== ENCOUNTER 2024-04-03 13:23 | Outpatient (AMB) | payer OTHER, SELFPAY ==
[2024-04-03 13:29] VITALS: BP 120/78; PULSE 90; BMI 21.2
--- NOTE | 2024-04-03 13:29 | A.OFFVIS_ITS ---
Vital Signs 04/03/24 13:29 04/03/24 14:10 04/03/24 14:10 Height 5 ft 4 in Weight 123 lb 7.342 oz BMI 21.2 BP 120/78 120/80 115/80 Blood Pressure Location Rt brachial Rt brachial Rt brachial Position Sitting Sitting Standing Pulse 90 Pulse Source Pulse Oximeter Intake Visit Reasons: Other specified abnormal findings of blood jose c Intake Note: NEW Patient presents today to establish treatment for Abnormal findings of blood chemistry: Water Resource Consultant Required: No Accompanied by: Self / Same As Patient Allergies vancomycin Allergy (Unknown, Verified 04/03/24 13:30) itching thorat and wheezing amitriptyline Adverse Reaction (Intermediate, Verified 04/03/24 13:30) tiredness sumatriptan Adverse Reaction (Intermediate, Verified 04/03/24 13:30) over alert Medication List - Last Reconciled 04/03/24 by Dania Araujo MD albuterol sulfate 90 mcg/actuation 2 puffs inhalation Q4-6H PRN cholecalciferol (vitamin D3) 25 mcg PO DAILY cyclobenzaprine 10 mg PO BEDTIME PRN 30 days lorazepam 0.5 mg PO DAILY PRN 30 days magnesium oxide 400 mg PO DAILY 30 days montelukast 10 mg PO DAILY HPI Comments Details: 43-year-old female here today with concerns for adrenal insufficiency. Concussion Summer 2023, dog at work jumped up at her Nausea, dizziness, headaches , excessive fatigue Nausea getting worse , dizziness improved . Palpitatiions Joint aches Has some history of inhaled corticosteroids , short courses of prednisone once veery 2-3 years, at least not since the past 2 years. Cortisone injections 2-3 times in her wrist , 3 years ago was the last one LMP: 03/08/24, s/p salpingectomy, periods are regular Lost 20 lbs since September 2023, says she is always nauseous , saw GI , gastric emptying studying scheduled for 04/11. 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 Lives with boyfriend and daughter Vapes occasionally Alcohol : 3 drinks a week No drug use Physical exam General: sitting comfortably in no acute distress HEENT: normocephalic/atraumatic,moist oral mucosa, no hyperpigmentation Neck: supple, symmetrical, no thyromegaly , no dorsocervical or supraclavicular fat pads Cardiac: normal heart sounds Pulm: normal breath sounds B/L, no added breath sounds Abd: not distended, no tenderness Extremities: no edema, no signs of myxedema, no hyperpigmentation Neuro: AAO x3, Speech: normal, no facial droop, moving all 4 extremities Laboratory Tests 02/14/23 12/19/23 13:08 10:30 TSH 1.35 1.64 Laboratory Tests 02/24/24 08:21 Sodium 138 Potassium 4.3 Chloride 108 Creatinine 0.69 Estimated GFR > 60 Random Glucose 99 PFSH Medical History Moderate persistent asthma, uncomplicated Allergic rhinitis Surgical History Status post surgical removal of both fallopian tubes History of delivery History of esophagogastroduodenoscopy (EGD) History of breast biopsy History of wisdom tooth extraction History of placement of ear tubes History of tonsillectomy and adenoidectomy Family History Father Skin cancer Hypertension CVD (cardiovascular disease) Mother Asthma Hypothyroidism Sister In good health Social History Housing: House Alcohol intake: current Alcohol intake frequency: a few times a week Alcohol type: wine and hard liquor Patient Tobacco Use Status: Never used Tobacco e-Cigarette/Vaping Use: Currently Using Second Hand Smoke Exposure: No service: No Current occupational status: employed Current occupational exposures/hazards: No Cognitive needs: No Hearing needs: No Vision needs: No Physical Exam Vital Signs: Last Vital Signs Pulse 90 04/03/24 13:29 BP 120/78 04/03/24 13:29 BMI result Body Mass Index 21.2 Assessment & Plan Assessment & Plan (1) Abnormal cortisol level: Code(s): R79.89 - Other specified abnormal findings of blood chemistry Category: Medical Plan: Point 3-year-old female coming in today with concerns of hypocortisolism. Since she had a concussion in summer 2023 she has been having nausea, dizziness, weight loss, lightheadedness, and BP fluctuations which are concerning for possible adrenal insufficiency. We will do baseline blood work. Once I have the results of her baseline blood work we will consider doing cosyntropin stimulation testing. She has no history history recent of steroid use, has had cortisone shot in the past as well as prednisone courses in the past. LMP was in March, periods are regular. Plan: -ordered cortisol, acth, rest of the pituitary panel -consider doing cosyntropin stimulation tests -follow up in 5 weeks to discuss results Plan I spent 45 minutes in reviewing the record, seeing the patient and documenting in the medical record. Orders: Orders Basic Metabolic Panel Today R79.89 - Other specified abnormal findings of blood chemistry Lutenizing Hormone Today R79.89 - Other specified abnormal findings of blood chemistry Human Growth Hormone Today R79.89 - Other specified abnormal findings of blood chemistry Follicle Stimulating Hormone Today R79.89 - Other specified abnormal findings of blood chemistry Estradiol Ultra Sensitive Today R79.89 - Other specified abnormal findings of blood chemistry DHEA Sulfate Today R79.89 - Other specified abnormal findings of blood chemistry Adrenocorticotropic Hormone Today R79.89 - Other specified abnormal findings of blood chemistry IGF-1 (Somatomedin C) Today R79.89 - Other specified abnormal findings of blood chemistry Prolactin Today R79.89 - Other specified abnormal findings of blood chemistry Thyroid Stimulating Hormone Today R79.89 - Other specified abnormal findings of blood chemistry Free T4 (Free Thyroxine) Today R79.89 - Other specified abnormal findings of blood chemistry Cortisol Random Today R79.89 - Other specified abnormal findings of blood chemistry Patient Instructions: Do 8 AM blood work We will reach out with results on the portal Follow up in 5 weeks Coding Level of Care Code New Pt Level 4 (75551) Diagnoses Abnormal cortisol level R79.89 Time Spent (min) 45
[2024-04-03 14:10] VITALS: BP 115/80; BP 120/80
== END 2024-04-03 14:05 | disposition home or self-care (01) ==
PROVIDERS: PCP Internal Medicine; Visit Provider Student in an Organized Health Care Education/Training Program
DX: R79.89 Other specified abnormal findings of blood chemistry (principal)
CPT/HCPCS: 99204

== ENCOUNTER → 2024-04-03 13:23 | Outpatient (BNVA) | payer OTHER, SELFPAY | PROVIDERS: PCP Internal Medicine; Visit Provider Student in an Organized Health Care Education/Training Program ==

== ENCOUNTER 2024-04-05 07:40 | Outpatient (REF) | payer OTHER, SELFPAY ==
[2024-04-05 08:44] LABS: Alanine Aminotransferase 49 U/L (0-31); Albumin Level 4.4 g/dL (3.5-5.0); Alkaline Phosphatase 60 U/L (39-117); Anion Gap 9 (12-20); Aspartate Amino Transferase 35 U/L (5-31); Bilirubin Direct 0.3 mg/dL (0.0-0.5); Bilirubin Total 1.1 mg/dL (0.0-1.0); Blood Urea Nitrogen 9 mg/dL (9-16); Calcium 8.9 mg/dL (8.4-10.2); Carbon Dioxide 23 mmol/L (22-29); Chloride 111 mmol/L (96-108); Estimated Glomerular Filt Rate > 60; Glucose Random 95 mg/dL (60-115); Sodium 139 mmol/L (135-145); Total Protein 6.8 g/dL (6.5-8.0)
[2024-04-05 08:51] LABS: Cortisol Random 17.6 ug/dL
[2024-04-05 08:52] LABS: Free T4 (Free Thyroxine) 1.01 ng/dL (0.71-1.85); Thyroid Stimulating Hormone 2.33 uIU/mL (0.32-4.0)
[2024-04-06 17:54] LABS: DHEA Sulfate 103 mcg/dL (15-205); Follicle Stimulating Hormone 4.2 mIU/mL; Lutenizing Hormone 4.3 mIU/mL; Prolactin 16.1 ng/mL
[2024-04-06 22:37] LABS: Human Growth Hormone <0.1 ng/mL (< OR = 7.1)
[2024-04-09 13:25] LABS: Adrenocorticotropic Hormone 14 pg/mL (6-50)
[2024-04-09 14:22] LABS: IGF-1 (Somatomedin C) 144 ng/mL (52-328)
[2024-04-10 02:28] LABS: Estradiol Ultra Sensitive 163 pg/mL
== END 2024-04-05 07:41 | disposition home or self-care (01) ==
LOC: HO.LAB 07:40
PROVIDERS: PCP Internal Medicine; Visit Provider Student in an Organized Health Care Education/Training Program
DX: R79.89 Other specified abnormal findings of blood chemistry (principal); R74.01 Elevation of levels of liver transaminase levels
CPT/HCPCS: 36415; 80048; 80076; 82024; 82533; 82627; 82670; 83001; 83002; 83003; 84146; 84305; 84439; 84443

== ENCOUNTER 2024-04-12 13:51 | Outpatient (RCR) | payer OTHER, SELFPAY ==
--- NOTE | 2024-01-03 09:39 | MHC.PT.EP ---
[facility] [place] Office [place] Office [place] [facility] [address] Angela Betancur [address] [phone] F: [phone] F: [phone] F: [phone] F: [phone] Physical Therapy Plan of Care Date of Evaluation: 01/03/24 Date of Surgery: N/A Diagnosis: neck pain (RL) Assessment: pt is a 43 y/o male presenting to physical therapy w/ referring diagnosis of cervicalgia. Given NICHELLE and further questioning I am highly suspicious of post-concussion syndrome. She currently follows up only w/ her PCP who sees her once every few months. I do not feel this level of care is enough and she requires increased care. I will reach out to her PCP to determine what the next steps should be. Will continue to monitor and treat or refer as appropriate. Impairments include pain, decreased range of motion, decreased strength, impaired functional mobility, impaired postural awareness, and altered ambulation mechanics. pt is a good candidate for skilled PT due to age, potential remediation of impairments, typical disease/condition progression and prognosis, comorbidities, and motivation. pt would benefit from skilled PT intervention to provide a tailored strengthening and stretching exercise program, functional training, gait training, postural re-training, neuromuscular re-education, modalities as needed for pain, equipment safety demonstration. Frequency and Duration: The patient will be seen 2x/wk for 8 wks Short Term Goals: pt will be I w/ HEP to promote self-management of condition. pt will demo proper sitting posture w/ lumbar roll to promote neutral spine w/ seated ADLs. pt will improve L cervical rotation by at least 10 degrees to promote ease in head turns w/ driving for safety. Retirement Goals: pt will report a statistically significant improvement in self-reported outcome measure, NDI, to promote return to PLOF. pt will perform at least x10 reps of vertical, horizontal, and convergence<>divergence smooth pursuits w/ reports of <1/10 fatigue to promote ease in reading for work-related tasks. 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 Treatment Plan: Modalities to reduce pain, spasms and effusion. Manual therapy to restore motion and function. Therapeutic exercise to improve strength and flexibility. Neuromuscular re-education for posture and balance. Therapeutic activities to return to functional activities of daily living. Electronically signed by: Lisa Yun PT, DPT Please sign and return to therapist. Thank you for your referral.
--- NOTE | 2024-04-30 13:40 | MHC.PT.DC ---
[facility] Office [place] Office [place] Office [address] Angela Betancur [address] [phone] F: [phone] F: [phone] F: [phone] F: [phone] Physical Therapy Discharge Report Diagnosis: neck pain (RL) Date of Surgery: N/A Date of Evaluation: 01/03/24 Date of Discharge: 04/30/24 Treatments to Date: 19 Cancellations to Date: 6 No Shows to Date: 0 Discharge Status: Recommend MD Follow-up Discharge Summary: Pt reports feeling 50% better overall since starting PT with less dizziness, able to read and drive with less sx and has RTW. However continues to have cervical pain and SORENSEN most of the time as well as intermittent nausea (will have emesis for several days and then be okay for a few days - has been undergoing GI w/u). We reviewed HEP and no further questions at this time. NDI . She is starting with a chiropracter in a few days and will conitnue with neurologist and other specialists as this time. Smooth pursuits and saccades appear WNL and sx free in sitting. She tolerated walking ball pass/around the back exercises with good pacing. No therapeutic breaks needed or increase in sx reported. Electronically signed by: Lisa Yun PT, DPT Please sign and return to therapist. Thank you for your referral.
== END 2024-04-30 13:41 | disposition home or self-care (01) ==
LOC: HO.PT 13:51
PROVIDERS: PCP Internal Medicine; Visit Provider Internal Medicine
DX: M54.2 Cervicalgia (principal)
CPT/HCPCS: 97110; 97112; 97140; 97162; 97164

== ENCOUNTER → 2024-05-23 15:02 | Outpatient (REF) | payer OTHER, SELFPAY ==
--- NOTE | 2024-05-23 15:08 | ECG_ITS ---
Test Reason : cp Blood Pressure : */* mmHG Vent. Rate : 75 BPM Atrial Rate : 75 BPM P-R Int : 150 ms QRS Dur : 84 ms QT Int : 398 ms P-R-T Axes : 57 -10 18 degrees QTcB Int : 444 ms Normal sinus rhythm Septal infarct , age undetermined ; can be related to body habitus and lead placement Abnormal ECG No previous ECGs available Referred By: Emma Jarvis Electronically Signed By: GENE WHITE
--- OUTSIDE RECORDS SUMMARY | 2024-05-23 15:10 | XMS_ITS | Encounter Summary ---
Author Organization [facility] Address [address] [place] [address] Care Team Providers Care Customer Consulting Manager Name Role Phone Emma Benjamin Primary Care Provider [phone] Encounter Details Date Type Department Care Team (Late st Contact Info) Description 04/28/2024 myChart Message [facility] [address] [place] [address] [phone] Alva Blank MD [address] [place] [id number] Biofeedback therapy Social History Tobacco Use Types Packs/Day Years Used Date Smoking Tobacco: Never Smokeless Tobacco: Never Alcohol Use Standard Drinks/Week Comments Yes 0 (1 standard drink = 0.6 oz pur e alcohol) Comments Unknown Sex and Gender Information Value Date Recorded Sex Assigned at Female 02/06/2024 11:55 AM EST Legal Sex Female 11:53 AM EST Gender Identity Female 02/06/2024 11:55 AM EST Sexual Orientation Straight 02/14/2024 10 :17 AM EST documented as of this encounter Miscellaneous Notes * Telephone Encounter - Nelly Martino - 05/04/2024 12:16 PM EST Called and left message for patient to call back to r/s documented in this encounter Plan of Treatment Upcoming Encounters Date Type Department Care Team (Late st Contact Info) Description 05/28/2024 12:00 PM EST Telehealth [facility] [address] [place] [address] Alva Blank MD [address] [place] [phone] 04/16/2025 12:30 PM EST Appointment [facility] [address] [place] [address] Alva Blank MD [address] [place] [id number] Barber Wray MD [address] [place] [address] [phone] Lorri Cortez documented as of this encounter Visit Diagnoses Not on filedocumented in this encounter Care Teams Customer Consulting Manager Relationship Specialty Start Date End Date Emma Benjamin [address] [place] [address] [place] [address] PCP - General Internal Medicine 02/07/24 documented as of this encounter
--- OUTSIDE RECORDS SUMMARY | 2024-05-23 15:10 | XMS_ITS | Encounter Summary ---
Author Organization [facility] Address [address] [place] [address] Care Team Providers Care Fire Extinguisher Repairer Name Role Phone Emma Benjamin Primary Care Provider [phone] Encounter Details Date Type Department Care Team (Late st Contact Info) Description 05/23/2024 Orders Only [facility] [address] [place] [phone] Alva Blank MD [address] [place] [id number] Social History Tobacco Use Types Packs/Day Years [...] AM EST documented as of this encounter Plan of Treatment Upcoming Encounters Date Type Department Care Team (Late st Contact Info) Description 05/28/2024 12:00 PM EST Telehealth [facility] [address] [place] [address] [phone] Alva Blank MD [address] [place] [phone] 04/16/2025 12:30 PM EST Appointment [facility] [address] [place] [address] Alva Blank MD [address] [place] [id number] Barber Wray MD [address] [place] [address] [phone] Lorri Cortez documented as of this encounter Visit Diagnoses Not on filedocumented in this encounter Care Teams Fire Extinguisher Repairer Relationship Specialty Start Date End Date Emma Benjamin [address] [facility] [place] [address] PCP - General Internal Medicine 02/07/24 documented as of this encounter
--- OUTSIDE RECORDS SUMMARY | 2024-05-23 15:10 | XMS_ITS | Encounter Summary ---
Author Organization [facility] Address [address] [id number] Care Team Providers Care Sort Manager Name Role Phone Emma Benjamin Primary Care Provider [phone] Reason for Referral * Physical Therapy (Routine) - Closed Specialty Diagnoses / Procedures Referred By Brandee flood Referred To Contact Physical Therapy Diagnoses Post concussion syndrome Alva Blank MD [address] [place] [address] Phone: tel: fax: Referral ID Status Reason Start Date Expiration Date V isits Requested Visits Authorized [id number] Closed Specialty Services Required 05/13/2024 11/12/2025 6 6 Encounter Details Date Type Department Care Team (Late st Contact Info) Description 05/13/2024 Orders Only [facility]rology [facility] [address] [place] [address] Alva Blank MD [address] [place] [address] 18819 Post concussion syndrome (Primary Dx) Social History Tobacco Use Types Packs/Day Years [...] Info) Description 05/28/2024 12:00 PM EST Telehealth [facility] Building Neurology Clinic [address] [place] [address] Alva Blank MD [address] [place] [address] 04/16/2025 12:30 PM EST Appointment [facility] Neurodiagnostics [address] [place] [address] Alva Blank MD [address] [place] [address] Barber Wray MD [address] [place] [address] 146[address] Lorri Cortez Scheduled Referrals Name Type Priority Associated Diagnoses Order Schedule Ambulatory referral to Physical Therapy Outpatient Referral Routine Post concussion syndrome Expected: 05/13/2024, Expires: 11/10/2024 documented as of this encounter Visit Diagnoses Diagnosis Post concussion syndrome- Primary Postconcussion syndrome documented in this encounter Care Teams Sort Manager Relationship Specialty Start Date End Date Emma Benjamin [address] [facility] [place] [address] PCP - General Internal Medicine 02/07/24 documented as of this encounter
--- OUTSIDE RECORDS SUMMARY | 2024-05-23 15:10 | XMS_ITS | Encounter Summary ---
Author Organization [facility] Address [address] [place] [address] Care Team Providers Care Leather Scraper Name Role Phone Emma Benjamin Primary Care Provider [phone] Encounter Details Date Type Department Care Team (Late st Contact Info) Description 05/07/2024 myChart Message [facility] Neurology Clinic [address] [place] [address] [phone] Alva Blank MD [address] [place] [address] Work note Social History Tobacco Use Types Packs/Day Years [...] Info) Description 05/28/2024 12:00 PM EST Telehealth [facility] Neurology [facility] [address] [place] [address] [phone] Alva Blank MD [address] [place] [address] 04/16/2025 12:30 PM EST Appointment [facility] Neurodiagnostics [address] [place] [address] Alva Blank MD [address] [place], [place] [phone] Barber Wray MD [address] [place], [place] [phone] Lorri Cortez documented as of this encounter Visit Diagnoses Not on filedocumented in this encounter Care Teams Leather Scraper Relationship Specialty Start Date End Date Emma Benjamin [address] [place] [address] [place] [address] PCP - General Internal Medicine 02/07/24 documented as of this encounter
--- OUTSIDE RECORDS SUMMARY | 2024-05-23 15:10 | XMS_ITS | Encounter Summary ---
Author Organization [facility] Address [address] [place] [address] Care Team Providers Care Ceramic Products Sales Engineer Name Role Phone Emma Benjamin Primary Care Provider [phone] Reason for Visit * Reason Onset Date Comments PAC Alva Hauser Patient Request Call Back 0 05/14/2024 PAC Order Request 05/14/2024 PAC Appt Request - Established 05/14/2024 Encounter Details Date Type Department Care Team (Late st Contact Info) Description 05/14/2024 Telephone [facility] Neurology Clinic [address] [place], [place] [phone] Telephone Intake, Staff PAC Alva Hauser Patient Request Call Back; PAC Order Request; PAC Appt Request - Established Social History Tobacco Use Types Packs/Day Years [...] encounter Miscellaneous Notes * Telephone Encounter - Ellen Ferrer - 05/23/2024 12:04 PM EST Pt calling to sched an appt within 1-2 weeks with Alva Rene to discuss meds and cardio. Please reach out to the pt. * Telephone Encounter - Corinna Lima - 05/14/2024 1:56 PM EST Pt called in to scheduled autonomic testing that pt stated Dr Blank ordered. I do not see order in system and unable to schedule. Pt would like to know when the order would be in as she would like to schedule this. Please reach out to pt @ [phone]. Thank you documented in this encounter Plan of Treatment Upcoming Encounters Date Type Department Care Team (Late st Contact Info) Description 05/28/2024 12:00 PM EST Telehealth [facility] Building Neurology Clinic [address] [place] [address] Alva Blank MD [address] [place] [address] 04/16/2025 12:30 PM EST Appointment [facility] Neurodiagnostics [address] [place] [address] Alva Blank MD [address] [place] [address] Barber Wray MD [address] [place] [address] 417[address] Lorri Cortez documented as of this encounter Visit Diagnoses Not on filedocumented in this encounter Care Teams Ceramic Products Sales Engineer Relationship Specialty Start Date End Date Emma Benjamin [address] [place] [address] [place] [address] PCP - General Internal Medicine 02/07/24 documented as of this encounter
--- OUTSIDE RECORDS SUMMARY | 2024-05-23 15:10 | XMS_ITS | Encounter Summary ---
Author Organization [facility] Address [address] [id number] Care Team Providers Care Residential Advisor Name Role Phone Emma Benjamin Primary Care Provider [phone] Reason for Referral * Neurology (Routine) - Pending Review Specialty Diagnoses / Procedures Referred By Brandee flood Referred To Contact Diagnoses Post concussion syndrome Procedures Autonomic Nerve Testing Alva Blank MD [address] [place] [address] Phone: tel: fax: Referral ID Status Reason Start Date Expiration Date V isits Requested Visits Authorized [id number] Pending Review 05/15/2024 11/14/2025 1 1 Encounter Details Date Type Department Care Team (Late st Contact Info) Description 05/15/2024 Orders Only [facility] Neurology Clinic [address] [place] [address] Alva Blank MD [address] [place] [address] 24[address] Post concussion syndrome (Primary Dx) Social History [...] Info) Description 05/28/2024 12:00 PM EST Telehealth [facility] Building Neurology Clinic [address] [place] [address] Alva Blank MD [address] [place] [address] 04/16/2025 12:30 PM EST Appointment [facility] Neurodiagnostics [address] [place] [address] Alva Blank MD [address] [place] [address] Barber Wray MD [address] [place] [address] Lorri Cortez Scheduled Orders Name Type Priority Associated Diagnoses Orde r Schedule Autonomic Nerve Testing Neurology Routine Post concussion syndrome 1 Occurrences starting 05/15/2024 until 05/15/2025 documented as of this encounter Visit Diagnoses Diagnosis Post concussion syndrome- Primary Postconcussion syndrome documented in this encounter Care Teams Residential Advisor Relationship Specialty Start Date End Date Emma Benjamin [address] [facility] [place] [address] PCP - General Internal Medicine 02/07/24 documented as of this encounter
--- OUTSIDE RECORDS SUMMARY | 2024-05-23 15:10 | XMS_ITS | Encounter Summary ---
Author Organization [facility] Address [address] [place] [address] Care Team Providers Care Pulp And Paper Tester Name Role Phone Emma Benjamin Primary Care Provider [phone] Encounter Details Date Type Department Care Team (Late st Contact Info) Description 05/09/2024 myChart Message [facility] Neurology Clinic [address] [place] [address] [phone] Alva Blank MD [address] [place] [address] Vestibular therapy Social History Tobacco Use Types Packs/Day [...] encounter Miscellaneous Notes * Telephone Encounter - Jackson Carter LPN - 05/14/2024 11:45 AM EST I sent over the paperwork to my contact at [facility]. documented in this encounter Plan of Treatment Upcoming Encounters Date Type Department Care Team (Late st Contact Info) Description 05/28/2024 12:00 PM EST Telehealth [facility] Neurology Clinic [address] [place] [address] Alva Blank MD [address] [place] [address] 04/16/2025 12:30 PM EST Appointment [facility] Neurodiagnostics [address] [place] [address] Alva Blank MD [address] [place] [address] Barber Wray MD [address] [place] [address] [phone] Lorri Cortez documented as of this encounter Visit Diagnoses Not on filedocumented in this encounter Care Teams Pulp And Paper Tester Relationship Specialty Start Date End Date Emma Benjamin [address] [place] [address] [place] [address] PCP - General Internal Medicine 02/07/24 documented as of this encounter
--- OUTSIDE RECORDS SUMMARY | 2024-05-23 15:10 | XMS_ITS | Encounter Summary ---
Author Organization [facility] Address [address] [place] [address] Care Team Providers Care Machine Heel Seat Laster Name Role Phone Emma Benjamin Primary Care Provider [phone] Encounter Details Date Type Department Care Team (Late st Contact Info) Description 05/14/2024 Orders Only [facility] Neurology Clinic [address] [place] [address] Alva Blank MD [address] [place] [address] 1909[address] Social History Tobacco Use Types Packs/Day Years [...] Info) Description 05/28/2024 12:00 PM EST Telehealth [facility] Neurology Clinic [address] [place] [address] [phone] Alva Blank MD [address] [place] [address] 04/16/2025 12:30 PM EST Appointment [facility] Neurodiagnostics [address] [place] [address] Alva Blank MD [address] [place] [address] Barber Wray MD [address] [place] [address] [phone] Lorri Cortez documented as of this encounter Visit Diagnoses Not on filedocumented in this encounter Care Teams Machine Heel Seat Laster Relationship Specialty Start Date End Date Emma Benjamin [address] [facility] [place] [address] PCP - General Internal Medicine 02/07/24 documented as of this encounter
--- OUTSIDE RECORDS SUMMARY | 2024-05-23 15:10 | XMS_ITS | Referral Summary ---
Author Organization [facility] Address [address] [place] [address] Care Team Providers Care Vp Securities Name Role Phone OrlandoEmma Gurrola Primary Care Provider [phone] Encounters Date Type Department Care Team Description 05/23/2024 Orders Only [facility] Building Neurology Clinic [address] [place] [address] Alva Blank MD 05/15/2024 [email or web address] Message [facility] Neurology [facility] [address] [place] [address] 35943 Jackson Carter LPN Making appointment 05/15/2024 Orders Only [facility]rology [facility] [address] [place] [address] Alva Blank MD Post concussion syndrome (Primary Dx) 05/14/2024 Orders Only [facility]rology [facility] [address] [place] [address] 59613 Alva Blank MD 05/14/2024 Telephone [facility] [address] [place] [address] 28926 Telephone Intake, Staff PAC Alva Hauser Patient Request Call Back; PAC Order Request; PAC Appt Request - Established 05/13/2024 Orders Only [facility] Neurology [facility] [address] [place] [address] 37761 Alva Blank MD Post concussion syndrome (Primary Dx) 05/09/2024 myChart Message [facility] Neurology Clinic [address] [place] [address] 79296 Alva Blank MD Vestibular therapy 05/09/2024 Telephone [facility] [address] [place] [phone] Alva Blank MD 05/07/2024 myChart Message [facility] [address] [place] [address]29 Alva Blank MD Work note 05/01/2024 Telephone [facility] [address] [place] [address] 69129 Telephone Intake, Staff PAC Appt Request - Established- Alva Blank MD 04/28/2024 myChart Message [facility] [address] [place] [address] 09278 Alva Blank MD Biofeedback therapy 04/06/2024 11:00 AM EST Telehealth [facility]rology [facility] [address] [place] [address] Alva Blank MD Post concussion syndrome (Primary Dx); Concussion syndrome 03/09/2024 Patient Self-Triage [address] [address] Urgent Care, [facility] PhysicianMD 03/09/2024 Telephone [facility] [address] [place] [address]96 Telephone Intake, Staff PAC Appt Request - Established (Dr. Blank ) 02/23/2024 myChart Message [facility] [address] [place] [address] 29676 Alva Blank MD following up 02/21/2024 3:00 PM EST Office Visit [facility] [address] [place] [address]37 Alva Blank MD Concussion syndrome (Primary Dx) from Last 3 Months Allergies Active Allergy Reactions Criticality Noted Date Comments Vancomycin Dyspnea,Hives,Itchin g,Nausea And Vomiting High 02/13/2014 Medications montelukast (SINGULAIR) 10 mg tablet SMARTSI Tablet(s) By Mouth Daily Active cholecalciferol (VITAMIN D3) 1,000 unit tablet SMARTSI Tablet(s) By Mouth Daily 4 Active ondansetron (ZOFRAN ODT) 4 mg disintegrating tablet every 6 hours as needed. Active albuterol (PROAIR HFA,VENTOLIN HFA) 90 mcg inhaler INHALE 2 PUFFS EVERY 4 TO 6 HOURS NEEDED FOR SHORTNESS OF BREATH OR FOR WHEEZE 4 Active cyclobenzaprine (FLEXERIL) 10 mg tablet daily as needed. 1 tablet by mouth at bedtime as needed 4 Active LORazepam (ATIVAN) 0.5 mg tablet daily as needed. 4 Active magnesium oxide (MAG-OX) 400 mg (241.3 mg mag) tablet SMARTSI Tablet(s) By Mouth Daily 4 Active nortriptyline (PAMELOR) 10 mg capsule Take 1 capsule (10 mg total) by mouth nightly. 30 capsule 2 5 08/08/19 25 Active Social History Tobacco Use Types Packs/Day Years Used Date Smoking Tobacco: Never Smokeless Tobacco: Never Tobacco Cessation:Counseling Given: Not Answered Alcohol Use Standard Drinks/Week Comments Yes 0 (1 standard drink = 0.6 oz pur e alcohol) Comments Unknown Sex and Gender Information Value Date Recorded Sex Assigned at Female 02/06/2024 11:55 AM EST Legal Sex Female 11:53 AM EST Gender Identity Female 02/06/2024 11:55 AM EST Sexual Orientation Straight 02/14/2024 10 :17 AM EST Last Filed Vital Signs Vital Sign Reading Time Taken Comments Blood Pressure 125/87 02/21/2024 3:11 PM EST Pulse 119 02/21/2024 3:11 PM EST Temperature 37 ??C (98.6 ??F) 02/21/2024 3:11 PM EST Respiratory Rate 18 02/21/2024 3:11 PM EST Oxygen Saturation 99% 02/21/2024 3:11 PM EST Inhaled Oxygen Concentration - - Weight 55.3 kg (122 lb) 04/06/2024 10:23 AM EST Height 162.6 cm (5' 4 ) 02/21/2024 3:11 PM EST Body Mass Index 20.94 02/21/2024 3:11 PM EST Plan of Treatment Upcoming Encounters Date Type Department Care Team (Late st Contact Info) Description 05/28/2024 12:00 PM EST Telehealth [facility] Neurology Clinic [address] [place] [address] Alva Blank MD [address] [place] [address] 04/16/2025 12:30 PM EST Appointment [facility] Neurodiagnostics [address] [place] [address] Alva Blank MD [address] [place] [address] Barber Wray MD [address] [place] [address] Lorri Cortez Insurance [facility] Care Teams Vp Securities Relationship Specialty Start Date End Date Emma Benjamin [address] [place] [address] [place] [address] PCP - General Internal Medicine 02/07/24
--- OUTSIDE RECORDS SUMMARY | 2024-05-23 15:10 | XMS_ITS | Encounter Summary ---
Author Organization [facility] Address [address] [place] [address] Care Team Providers Care Secondary English Teacher Name Role Phone OrlandoEmma Gurrola Primary Care Provider [phone] Encounter Details Date Type Department Care Team (Late st Contact Info) Description 05/09/2024 Telephone [facility] Neurology Clinic [address] [place] [address] Alva Blank MD [address] [place] [address] Social History Tobacco Use Types Packs/Day Years [...] encounter Miscellaneous Notes * Telephone Encounter - Alva Blank MD - 05/09/2024 4:03 PM EST Called Nelly to discuss recent concerns Says things have been horrible. Past 3 weeks or so can't get back to feeling okay. Headache, dizzy, nauseous, feels like whole body is shaking. Can't think. Thinking makes it worse. She's back atwork attempting to work 5 hours shifts 3 days per week but not able to do it consistently. After work she's much worse when she leaves, spend the next few days trying to catch up. Usually headaches base of her head, now more up by her eyes. Feels that her mood is fine. Doesn't feel super anxious. Feels like going back to work has made her worse. Currently 5 hours 3 days per week. Not able to keep up with those hours. Concussion PT ended. Now working with rehab chiropracter (no adjustment or anything). But every time she goes over something she feels very dizzy. When at work feels like she's gonna fall over - stumbles and going to catch herself. Feels like HR and blood pressure is all over the place. HR ranges from 50 - 140 . HR was 140 while standing calmly at work. Stair stepper after 1 minute of very low speed was 190. BP sitting 90/50 , 150/100s. Has been looking into biofeedback but not able to get in for it as an outpatient due to cost, wondering about some of the setups you can buy at home. -plan to start nortriptyline 10 mg nightly (reviewed side effects) -vestibular PT referral - she will let me know if the PT place she's been using has it at which time I will fax referral -will send for autonomic testing given concerns, may benefit from holter monitor / workup with PCP -will put in a note in her chart regaring longer time off of work Alva Blank MD documented in this encounter Plan of Treatment Upcoming Encounters Date Type Department Care Team (Late st Contact Info) Description 05/28/2024 12:00 PM EST Telehealth [facility] Building Neurology Clinic [address] [place] [address] Alva Blank MD [address] [place] [address] 04/16/2025 12:30 PM EST Appointment [facility] Neurodiagnostics [address] [place] [address] Alva Blank MD [address] [place] [address] Barber Wray MD [address] [place] [address] Lorri Cortez documented as of this encounter Visit Diagnoses Not on filedocumented in this encounter Care Teams Secondary English Teacher Relationship Specialty Start Date End Date Emma Benjamin [address] [place] [address] [place] [address] PCP - General Internal Medicine 02/07/24 documented as of this encounter
--- OUTSIDE RECORDS SUMMARY | 2024-05-23 15:10 | XMS_ITS | Encounter Summary ---
Author Organization [facility] Address [address] [place] [address] Care Team Providers Care Safety Pin Assembling Machine Operator Name Role Phone Emma Benjamin Primary Care Provider [phone] Reason for Visit * Reason Onset Date Comments PAC Appt Request - Established- Alva momin MD 05/01/2024 Encounter Details Date Type Department Care Team (Late st Contact Info) Description 05/01/2024 Telephone [facility] Neurology Clinic [address] [place] [address] Telephone Intake, Staff PAC Appt Request - Established- Alva Blank MD Social History Tobacco Use Types Packs/Day Years [...] Telephone Encounter - Nelly Martino - 05/04/2024 1:10 PM EST Called and left vmail for patient confirming that she is scheduled 06/15/24 at 11am . * Telephone Encounter - Tia Chapin - 05/04/2024 1:00 PM EST Pt calling confirming that appt on 06/15 at 11 works for her. Please call back to confirm. * Telephone Encounter - Karma Stone - 05/01/2024 11:52 AM EST Left VM for patient to schedule apt * Telephone Encounter - Karma Salmeron (Jenn) - 05/01/2024 11:35 AM EST Pt is calling to schedule a Telehealth follow up with Dr. Blank. I'm unable to schedule a telehealth using DT. Please reach to pt to discuss. # [phone] documented in this encounter Plan of Treatment Upcoming Encounters Date Type Department Care Team (Late st Contact Info) Description 05/28/2024 12:00 PM EST Telehealth [facility] Building Neurology Clinic [address] [place] [address] Alva Blank MD [address] [place] [address] 04/16/2025 12:30 PM EST Appointment [facility] Neurodiagnostics [address] [place] [address] Alva Blank MD [address] [place] [address] Barber Wray MD [address] [place] [address] Lorri Cortez documented as of this encounter Visit Diagnoses Not on filedocumented in this encounter Care Teams Safety Pin Assembling Machine Operator Relationship Specialty Start Date End Date Emma Benjamin [address] [place] [address] [place] [address] PCP - General Internal Medicine 02/07/24 documented as of this encounter
--- OUTSIDE RECORDS SUMMARY | 2024-05-23 15:10 | XMS_ITS | Clinical Summary ---
Author Organization [facility] Address [address] [place] [address] Care Team Providers Care Ordnance Technician Name Role Phone Emma Benjamin Primary Care Provider [phone] Allergies Active Allergy Reactions Criticality Noted Date [...] 30 capsule 2 5 08/08/19 25 Active Encounters Date Type Department Care Team Description 05/23/2024 Orders Only [facility] [address] [place] [address] 58039 Alva Blank MD 05/15/2024 myChart Message [facility] [address] [place] [address] 64048 Jackson Carter LPN Making appointment 05/15/2024 Orders Only [facility] [address] [place] [address] 95145 Alva Blank MD Post concussion syndrome (Primary Dx) 05/14/2024 Orders Only [facility] [address] [place] [address] 11508 Alva Blank MD 05/14/2024 Telephone [facility] [address] [place] [address] 57323 Telephone Intake, Staff PAC Alva Hauser Patient Request Call Back; PAC Order Request; PAC Appt Request - Established 05/13/2024 Orders Only [facility] [address] [place] [address] 73130 Alva Blank MD Post concussion syndrome (Primary Dx) 05/09/2024 myChart Message [facility] [address] [place] [address] 64678 Alva Blank MD Vestibular therapy 05/09/2024 Telephone [facility] [address] [place] [address] 41086 Alva Blank MD 05/07/2024 myChart Message [facility] [address] [place] [address] 85832 Alva Blank MD Work note 05/01/2024 Telephone [facility] [address] [place] [address] 42647 Telephone Intake, Staff PAC Appt Request - Established- Alva Blank MD 04/28/2024 myChart Message [facility] [address] [place] [address] Alva Blank MD Biofeedback therapy 04/06/2024 11:00 AM EST Telehealth [facility] [address] [place] [address] 40992 Alva Blank MD Post concussion syndrome (Primary Dx); Concussion syndrome 03/09/2024 Patient Self-Triage [facility] Medicine [address] [place] [address] Urgent Care, [facility] PhysicianMD 03/09/2024 Telephone [facility] [address] [place] [address] 64756 Telephone Intake, Staff PAC Appt Request - Established (Dr. Blank ) 02/23/2024 Teleporthart Message [facility] [address] [place] [address] 09318 Alva Blank MD following up 02/21/2024 3:00 PM EST Office Visit [facility] [address] [place] [address] 11771 Alva Blank MD Concussion syndrome (Primary Dx) from Last 3 Months Family History Medical History Relation Name Comments Colon polyps Father Heart disease Father has had a sten t put in Hypertension Father Melanoma Father Hyperthyroidism Maternal Grandfather Myocardial Infarction Maternal Grandfather Other Maternal Grandfather Had gal l bladder removed Dementia Maternal Grandmother Hypertension Maternal Grandmother Cholecystitis Mother Chronic, Had g all bladder removed Endometriosis Mother had a full hys terectomy Hypothyroidism Mother Aortic aneurysm Paternal Grandfather abdo brenda Colon cancer Paternal Grandfather Hypertension Paternal Grandfather Dementia Paternal Grandmother Melanoma Paternal Grandmother Other Paternal Grandmother pacemak er Other Sister Benign ovarian mass Relation Name Status Comments Father Alive Maternal Grandfather Maternal Grandmother Mother Alive Paternal Grandfather Paternal Grandmother Sister Alive Social History Tobacco Use Types Packs/Day Years [...] Info) Description 05/28/2024 12:00 PM EST Telehealth [facility] [address] [place] [address] 60853 Alva Blank MD [address] [place] [address] 57195 04/16/2025 12:30 PM EST Appointment [facility] [address] [place] [address] Alva Blank MD [address] [place] [address] 29087 Barber Wray MD [address] [place] [address] Lorri Cortez Health Maintenance Due Date Last Done Comments Cervical Cancer Screening 1981 HIV Screening 1981 HPV and Pap Smear 1981 Hepatitis C Screening 1981 Pap Smear 1981 Varicella Vaccines (1 of 2 - 13+ 2-dose series) 1994 Hepatitis B Vaccines (1 of 3 - 19+ 3-dose series) 2000 Pneumococcal Vaccine: Pediat cristiano (0-5 Years) and At-Risk Patients (6-50 Years) (1 of 2 - PCV) 2000 Mammogram 2021 COVID-19 Vaccine (3 - 2023- season) 12/04/202312/2020, 05/21/2020 Influenza Vaccine (#1) 2023 Alcohol/Substance Use Screening 04/04/2024 Depression Screening and Follow-Up 04/04/2024 Social Drivers of Health Xiomara ual Screening 04/04/2024 DTaP,Tdap,and Td Vaccines (4 - Td or Tdap) 01/23/2032 01/22/2022, 01/13/2016, 11/20/2014 RSV Vaccine (60+ years old a nd patients) (1 - 1-dose 75+ series) 2056 Insurance [facility] [place] [address] [place] [address] Care Teams Ordnance Technician Relationship Specialty Start Date End Date Emma Benjamin [address] [place] [address] [place] [address] PCP - General Internal Medicine 02/07/24
--- OUTSIDE RECORDS SUMMARY | 2024-05-23 15:10 | XMS_ITS | Encounter Summary ---
Author Organization [facility] Address [address] [place] [address] Care Team Providers Care Spring Tester Name Role Phone OrlandoEmma Gurrola Primary Care Provider [phone] Encounter Details Date Type Department Care Team (Late st Contact Info) Description 05/15/2024 myChart Message [facility] [address] [place] [address] Jackson Carter LPN Making appointment Social History Tobacco Use Types Packs/Day Years [...] Info) Description 05/28/2024 12:00 PM EST Telehealth [facility] [address] [place] [address] Alva Blank MD [address] [place] [address] 04/16/2025 12:30 PM EST Appointment [facility] Neuro[facility] [address] [place] [address] Alva Blank MD [address] [place] [address] Barber Wray MD [address] [place] [address] [phone] Lorri Cortez documented as of this encounter Visit Diagnoses Not on filedocumented in this encounter Care Teams Spring Tester Relationship Specialty Start Date End Date Emma Benjamin [address] [place] [address] [place] [address] PCP - General Internal Medicine 02/07/24 documented as of this encounter
== END ==
LOC: HO.CARD 15:02
PROVIDERS: PCP Internal Medicine; Visit Provider Internal Medicine
DX: R07.9 Chest pain, unspecified (principal)
CPT/HCPCS: 93005

== ENCOUNTER → 2024-05-23 15:08 | Outpatient (BNV) | payer OTHER, SELFPAY | PROVIDERS: PCP Internal Medicine; Visit Provider Internal Medicine | DX: R94.31 Abnormal electrocardiogram [ECG] [EKG] (principal); R07.9 Chest pain, unspecified | CPT/HCPCS: 93010 ==

== ENCOUNTER → 2024-05-30 09:33 | Outpatient (REF) | payer OTHER, SELFPAY ==
--- NOTE | 2024-05-30 09:42 | ECG_ITS ---
Test Reason : REPEATED EKG Blood Pressure : */* mmHG Vent. Rate : 76 BPM Atrial Rate : 76 BPM P-R Int : 144 ms QRS Dur : 92 ms QT Int : 404 ms P-R-T Axes : -12 -33 34 degrees QTcB Int : 454 ms Normal sinus rhythm Left axis deviation Septal infarct (cited on or before 23-May-2024) Abnormal ECG When compared with ECG of 23-May-2024 15:05, No significant change was found Referred By: Emma Jarvis Electronically Signed By: Eyad Pond
--- OUTSIDE RECORDS SUMMARY | 2024-05-30 10:55 | XMS_ITS | Encounter Summary ---
Author Organization [facility] Address [address] [place] [address] Care Team Providers Care Commercial Hvac Service Technician Name Role Phone Orlando Emma Jarvis Primary Care Provider [phone] Encounter Details Date Type Department Care Team (Late st Contact Info) Description 05/23/2024 Orders Only [facility] [address] [place], [place] [phone] Alva Blank MD [address] [place] [address] Social History Tobacco Use Types Packs/Day Years [...] Care Team (Late st Contact Info) Description 04/16/2025 12:30 PM EST Appointment [facility] Neurodiagn[facility] [address] [place], [place] [phone] Alva Blank MD [address] [place] [address] Barber Wray MD [address] [place] [address] Lorri Cortez documented as of this encounter Visit Diagnoses Not on filedocumented in this encounter Care Teams Commercial Hvac Service Technician Relationship Specialty Start Date End Date Emma Benjamin [address] [place] [address] dr Shannon [place], [place] [address] PCP - General Internal Medicine 02/07/24 documented as of this encounter
--- OUTSIDE RECORDS SUMMARY | 2024-05-30 10:55 | XMS_ITS | Encounter Summary ---
Author Organization [facility] Address [address] [place] [address] Care Team Providers Care Stud Driver Name Role Phone Orlando Emma Jarvis Primary Care Provider [phone] Encounter Details Date Type Department Care Team (Late st Contact Info) Description 05/15/2024 myChart Message [facility] [address] [place] [address] Jackson Carter LPN Making appointment Social History [...] Info) Description 04/16/2025 12:30 PM EST Appointment [facility] Neurodiagnostics [address] [place] [address] Alva Blank MD [address] [place] [address] Barber Wray MD [address] [place] [address] Lorri Cortez documented as of this encounter Visit Diagnoses Not on filedocumented in this encounter Care Teams Stud Driver Relationship Specialty Start Date End Date Emma Benjamin [address] [facility] dr Shannon [place], [place] [address] PCP - General Internal Medicine 02/07/24 documented as of this encounter
--- OUTSIDE RECORDS SUMMARY | 2024-05-30 10:55 | XMS_ITS | Encounter Summary ---
Author Organization [facility] Address [address] [place] [address] Care Team Providers Care Electric Motor Tester Name Role Phone Orlando Emma Jarvis Primary Care Provider [phone] Encounter Details Date Type Department Care Team (Late st Contact Info) Description 05/07/2024 myChart Message [facility] [address] [place], [place] [phone] Alva Blank MD [address] [place] [address] Work note Social History Tobacco Use Types [...] Info) Description 04/16/2025 12:30 PM EST Appointment [facility]ostics [address] [place], [place] [phone] Alva Blank MD [address] [place] [address] Barber Wray MD [address] [place] [address] Lorri Cortez documented as of this encounter Visit Diagnoses Not on filedocumented in this encounter Care Teams Electric Motor Tester Relationship Specialty Start Date End Date Emma Benjamin [address] [place] [address] [place] [address] PCP - General Internal Medicine 02/07/24 documented as of this encounter
--- OUTSIDE RECORDS SUMMARY | 2024-05-30 10:55 | XMS_ITS | Encounter Summary ---
Author Organization [facility] Address [address] [place] [address] Care Team Providers Care Academic Vice President Name Role Phone Emma Benjamin Primary Care Provider [phone] Reason for Visit * Reason Onset Date Comments PAC Alva Hauser Patient Request Call Back 0 05/14/2024 PAC Order Request 05/14/2024 PAC Appt Request - Established 05/14/2024 Encounter Details Date Type Department Care Team (Late st Contact Info) Description 05/14/2024 Telephone [facility] [address] [place], [place] [phone] Telephone Intake, Staff PAC Alva Hauser Patient [...] this. Please reach out to pt @ [phone]. Thank you documented in this encounter Plan of Treatment Upcoming Encounters Date Type Department Care Team (Late st Contact Info) Description 04/16/2025 12:30 PM EST Appointment [facility] Neurodiagnostics [address] [place], [place] [phone] Alva Blank MD [address] [place] [address] Barber Wray MD [address] [place] [address] Lorri Cortez documented as of this encounter Visit Diagnoses Not on filedocumented in this encounter Care Teams Academic Vice President Relationship Specialty Start Date End Date Emma Benjamin [address] [place] [address] [place] [address] PCP - General Internal Medicine 02/07/24 documented as of this encounter
--- OUTSIDE RECORDS SUMMARY | 2024-05-30 10:55 | XMS_ITS | Encounter Summary ---
Author Organization [facility] Address [address] [place] [address] Care Team Providers Care Caddie Supervisor Name Role Phone Emma Benjamin Primary Care Provider [phone] Encounter Details Date Type Department Care Team (Late st Contact Info) Description 05/09/2024 myChart Message [facility] [address] [place] [address] Alva Blank MD [address] [place] [address] [phone] Vestibular therapy Social History Tobacco Use Types [...] over the paperwork to my contact at [facility]. documented in this encounter Plan of Treatment Upcoming Encounters Date Type Department Care Team (Late st Contact Info) Description 04/16/2025 12:30 PM EST Appointment [facility] Neurodiagnostics [address] [place] [address] Alva Blank MD [address] [place] [address] [phone] Barber Wray MD [address] [place] [address] [phone] Lorri Cortez documented as of this encounter Visit Diagnoses Not on filedocumented in this encounter Care Teams Caddie Supervisor Relationship Specialty Start Date End Date Emma Benjamin [address] [place] [address] [place] [address] PCP - General Internal Medicine 02/07/24 documented as of this encounter
--- OUTSIDE RECORDS SUMMARY | 2024-05-30 10:55 | XMS_ITS | Encounter Summary ---
Author Organization [facility] Address [address] [place] [address] Care Team Providers Care Fisheries Director Name Role Phone Orlando Emma Jarvis Primary Care Provider [phone] Encounter Details Date Type Department Care Team (Late st Contact Info) Description 05/14/2024 Orders Only [facility] [address] [place], [place] [phone] Alva Blank MD [address] [place] [address] Social History Tobacco Use Types Packs/Day Years [...] Info) Description 04/16/2025 12:30 PM EST Appointment [facility] Neurodiagnostics [address] [place], [place] [phone] Alva Blank MD [address] [place] [address] Barber Wray MD [address] [place] [address] Lorri Cortez documented as of this encounter Visit Diagnoses Not on filedocumented in this encounter Care Teams Fisheries Director Relationship Specialty Start Date End Date Emma Benjamin [address] [place] [address] dr Shannon [place]te[place], [place] [address] PCP - General Internal Medicine 02/07/24 documented as of this encounter
--- OUTSIDE RECORDS SUMMARY | 2024-05-30 10:55 | XMS_ITS | Encounter Summary ---
Author Organization [facility] Address [address] [place] [address] Care Team Providers Care Project Manager/Team Coach Name Role Phone Emma Benjamin Primary Care Provider [phone] Reason for Visit * Reason Onset Date Comments PAC Appt Request - Established- Alva momin MD 05/01/2024 Encounter Details Date Type Department Care Team (Late st Contact Info) Description 05/01/2024 Telephone [facility] [address] [place] [address] Telephone Intake, Staff PAC Appt Request - [...] Please reach to pt to discuss. # [phone] documented in this encounter Plan of Treatment Upcoming Encounters Date Type Department Care Team (Late st Contact Info) Description 04/16/2025 12:30 PM EST Appointment [facility] Neurodiagnostics [address] [place] [address] Alva Blank MD [address] [place] [address] Barber Wray MD [address] [place] [address] Lorri Cortez documented as of this encounter Visit Diagnoses Not on filedocumented in this encounter Care Teams Project Manager/Team Coach Relationship Specialty Start Date End Date Emma Benjamin [address] [place] [address] [place] [address] PCP - General Internal Medicine 02/07/24 documented as of this encounter
--- OUTSIDE RECORDS SUMMARY | 2024-05-30 10:55 | XMS_ITS | Encounter Summary ---
Author Organization [facility] Address [address] [place] [address] Care Team Providers Care V Belt Coverer Name Role Phone Emma Benjamin Primary Care Provider Encounter Details Date Type Department Care Team (Late st Contact Info) Description 04/28/2024 myChart Message [facility] [address] [place] [address] [phone] Alva Blank MD [address] [place] [address] Biofeedback therapy Social History Tobacco Use Types [...] Info) Description 04/16/2025 12:30 PM EST Appointment [facility] Neurodiagnostics [address] [place] [address] Alva Blank MD [address] [place] [address] [phone] Barber Wray MD [address] [place] [address] [phone] Lorri Cortez documented as of this encounter Visit Diagnoses Not on filedocumented in this encounter Care Teams V Belt Coverer Relationship Specialty Start Date End Date Emma Benjamin [address] [place] [address] [place] [address] PCP - General Internal Medicine 02/07/24 documented as of this encounter
--- OUTSIDE RECORDS SUMMARY | 2024-05-30 10:55 | XMS_ITS | Encounter Summary ---
Author Organization [facility] Address [address] [place] [id number] Care Team Providers Care Recruitment And Outreach Assistant Name Role Phone Emma Benjamin Primary Care Provider [phone] Reason for Referral * Neurology (Routine) - Pending Review Specialty Diagnoses / Procedures Referred By Brandee flood Referred To Contact Diagnoses Post concussion syndrome Procedures Autonomic Nerve Testing Alva Blank MD [address] [place] [address] Phone: tel: fax: Referral ID Status Reason Start Date Expiration Date V isits Requested Visits Authorized [id number] Pending Review 05/15/2024 11/14/2025 1 1 Encounter Details Date Type Department Care Team (Late st Contact Info) Description 05/15/2024 Orders Only [facility] [address] [place] [address] Alva Blank MD [address] [place] [address] Post concussion syndrome (Primary Dx) Social History [...] Info) Description 04/16/2025 12:30 PM EST Appointment [facility] Neurodiagnostics [address] [place] [address] Alva Blank MD [address] [place] [address] Barber Wray MD [address] [place] [address] Lorri Cortez Scheduled Orders Name Type Priority Associated Diagnoses Orde r Schedule Autonomic Nerve Testing Neurology Routine Post concussion syndrome 1 Occurrences starting 05/15/2024 until 05/15/2025 documented as of this encounter Visit Diagnoses Diagnosis Post concussion syndrome- Primary Postconcussion syndrome documented in this encounter Care Teams Recruitment And Outreach Assistant Relationship Specialty Start Date End Date Emma Benjamin [address] [place] [address] [place] [address] PCP - General Internal Medicine 02/07/24 documented as of this encounter
--- OUTSIDE RECORDS SUMMARY | 2024-05-30 10:55 | XMS_ITS | Encounter Summary ---
Author Organization [facility] Address [address] [place] [address] Care Team Providers Care Distribution Center Assistant Name Role Phone OrlandoEmma Gurrola Primary Care Provider [phone] Encounter Details Date Type Department Care Team (Late st Contact Info) Description 05/09/2024 Telephone [facility] [address] [place] [address] Alva Blank MD [address] [place] [address] Social History Tobacco Use Types Packs/Day [...] Info) Description 04/16/2025 12:30 PM EST Appointment [facility] Neurodiagnostics [address] [place] [address] Alva Blank MD [address] [place] [address] Barber Wray MD [address] [place] [address] Lorri Cortez documented as of this encounter Visit Diagnoses Not on filedocumented in this encounter Care Teams Distribution Center Assistant Relationship Specialty Start Date End Date Emma Benjamin [address] [facility] [address] [place] [address] PCP - General Internal Medicine 02/07/24 documented as of this encounter
--- OUTSIDE RECORDS SUMMARY | 2024-05-30 10:55 | XMS_ITS | Encounter Summary ---
Author Organization [facility] Address [address] [place] [id number] Care Team Providers Care Hand Packer/Packager Name Role Phone Emma Benjamin Primary Care Provider [phone] Reason for Referral * Physical Therapy (Routine) - Closed Specialty Diagnoses / Procedures Referred By Brandee flood Referred To Contact Physical Therapy Diagnoses Post concussion syndrome Alva Blank MD [address] [place] [address] Phone: tel: fax: Referral ID Status Reason Start Date Expiration Date V isits Requested Visits Authorized [id number] Closed Specialty Services Required 05/13/2024 11/12/2025 6 6 Encounter Details Date Type Department Care Team (Late st Contact Info) Description 05/13/2024 Orders Only [facility] [address] [place] [address] Alva Blank MD [address] [place] [address] Post concussion syndrome (Primary Dx) Social History [...] Info) Description 04/16/2025 12:30 PM EST Appointment [facility] Neurodiagnostics [address] [place] [address] Alva Blank MD [address] [place] [address] Barber Wray MD [address] [place] [address] Lorri Cortez Scheduled Referrals Name Type Priority Associated Diagnoses Order Schedule Ambulatory referral to Physical Therapy Outpatient Referral Routine Post concussion syndrome Expected: 05/13/2024, Expires: 11/10/2024 documented as of this encounter Visit Diagnoses Diagnosis Post concussion syndrome- Primary Postconcussion syndrome documented in this encounter Care Teams Hand Packer/Packager Relationship Specialty Start Date End Date Emma Benjamin [address] [place] [address] [place] [address] PCP - General Internal Medicine 02/07/24 documented as of this encounter
--- OUTSIDE RECORDS SUMMARY | 2024-05-30 10:55 | XMS_ITS | Encounter Summary ---
Author Organization [facility] Address [address] [place] [address] Care Team Providers Care Tonsorial Artist Name Role Phone Emma Benjamin Primary Care Provider [phone] Reason for Visit * Consultation (Routine) - Authorized Specialty Diagnoses / Procedures Referred By Brandee t Referred To Contact Neurology Diagnoses WC Concussion, Emma Benjamin [address] [place], [place] [address] [address] Phone: tel: fax: [facility] [address] [place] [address] Phone: tel: fax: Referral ID Status Reason Start Date Expiration Date V isits Requested Visits Authorized [id number] Authorized 10/13/2023 08/08/2025 6 6 Encounter Details Date Type Department Care Team (Late st Contact Info) Description 05/28/2024 12:00 PM EST Telehealth [facility] [address] [place] [address] Alva Blank MD [address] [place] [address] Social History Tobacco Use Types Packs/Day Years [...] Info) Description 04/16/2025 12:30 PM EST Appointment [facility] Neurodiagnostics [address] [place] [address] Alva Blank MD [address] [place] [address] Barber Wray MD [address] [place] [address] Lorri Cortez documented as of this encounter Visit Diagnoses Not on filedocumented in this encounter Care Teams Tonsorial Artist Relationship Specialty Start Date End Date Emma Benjamin [address] [place] [address] [place] [address] PCP - General Internal Medicine 02/07/24 documented as of this encounter
--- OUTSIDE RECORDS SUMMARY | 2024-05-30 10:55 | XMS_ITS | Referral Summary ---
Author Organization [facility] Address [address] [place] [address] Care Team Providers Care Diamond Powder Mixer Name Role Phone Emma Benjamin Primary Care Provider [phone] Encounters Date Type Department Care Team Description 05/28/2024 12:00 PM [facility] Telehealth [facility] [address] [place] [address] 43451 Alva Blank MD 05/23/2024 Orders Only [facility] [address] [place] [address] 20299 Alva Blank MD 05/15/2024 myChart Message [facility] [address] [place] [address] 94571 Jackson Carter LPN Making appointment 05/15/2024 Orders Only [facility] [address] [place] [address] 61122 Alva Blank MD Post concussion syndrome (Primary Dx) 05/14/2024 Orders Only [facility] [address] [place] [address] 70508 Alva Blank MD 05/14/2024 Telephone [facility] [address] [place] [address] 83643 Telephone Intake, Staff PAC Alva Hauser Patient Request Call Back; PAC Order Request; PAC Appt Request - Established 05/13/2024 Orders Only [facility] [address] [place] [address] 83448 Alva Blank MD Post concussion syndrome (Primary Dx) 05/09/2024 myChart Message [facility] [address] [place] [address] 61385 Alva Blank MD Vestibular therapy 05/09/2024 Telephone [facility] [address] [place] [address] 58019 Alva Blank MD 05/07/2024 myChart Message [facility] [address] [place] [address] 87858 Alva Blank MD Work note 05/01/2024 Telephone [facility] [address] [place] [address] 48453 Telephone Intake, Staff PAC Appt Request - Established- Alva Blank MD 04/28/2024 [employer] Message [facility] [address] [place] [address] 88842 Alva Blank MD Biofeedback therapy 04/06/2024 11:00 AM [facility] Telehealth [facility] [address] [place] [address] 34960 Alva Blank MD Post concussion syndrome (Primary Dx); Concussion syndrome 03/09/2024 Patient Self-Triage [facility] Medicine [address] [place] [address] 78510 Urgent Care, [facility] PhysicianMD 03/09/2024 Telephone [facility] [address] [place] [address] 65053 Telephone Intake, Staff PAC Appt Request - Established (Dr. Blank ) from Last 3 Months Allergies Active Allergy [...] Info) Description 04/16/2025 12:30 PM EST Appointment [facility] Neurodiagnostics [address] [place] [address] Alva Blank MD [address] [place] [address] Barber Wray MD [address] [place] [address] Lorri Cortez Insurance [facility] Care Teams Diamond Powder Mixer Relationship Specialty Start Date End Date Emma Benjamin [address] [facility] [place] [address] PCP - General Internal Medicine 02/07/24
--- OUTSIDE RECORDS SUMMARY | 2024-05-30 10:56 | XMS_ITS | Clinical Summary ---
Author Organization [facility] Address [address] [place] [address] Care Team Providers Care Gis Mapping Technician Name Role Phone Emma Benjamin Primary Care Provider [phone] Allergies Active Allergy Reactions Criticality Noted Date [...] Department Care Team Description 05/28/2024 12:[facility] [address] [place] [address] 65608 Alva Blank MD 05/23/2024 Orders Only [facility] [address] [place] [address] 37787 Alva Blank MD 05/15/2024 myChart Message [facility] [address] [place] [address] 01770 Jackson Carter LPN Making appointment 05/15/2024 Orders Only [facility] [address] [place] [address] 73023 Alva Blank MD Post concussion syndrome (Primary Dx) 05/14/2024 Orders Only [facility] [address] [place] [address] 54659 Alva Blank MD 05/14/2024 Telephone [facility] [address] [place] [address] 98349 Telephone Intake, Staff PAC Alva Hauser Patient Request Call Back; PAC Order Request; PAC Appt Request - Established 05/13/2024 Orders Only [facility] [address] [place] [address] 03397 Alva Blank MD Post concussion syndrome (Primary Dx) 05/09/2024 myChart Message [facility] [address] [place] [address] 25037 Alva Blank MD Vestibular therapy 05/09/2024 Telephone [facility] [address] [place] [address] 36081 Alva Blank MD 05/07/2024 myChart Message [facility] [address] [place] [address] 34203 Alva Blank MD Work note 05/01/2024 Telephone [facility] [address] [place] [address] 73271 Telephone Intake, Staff PAC Appt Request - Established- Alva Blank MD 04/28/2024 myChart Message [facility] [address] [place] [address] 48495 Alva Blank MD Biofeedback therapy 04/06/2024 11:00 AM EST Telehealth [facility] Neurology Clinic [address] [place] [address] 10151 Alva Blank MD Post concussion syndrome (Primary Dx); Concussion syndrome 03/09/2024 Patient Self-Triage [address] [address] Urgent Care, [facility] PhysicianMD 03/09/2024 Telephone [facility] [address] [place] [address] 44428 Telephone Intake, Staff PAC Appt Request - Established (Dr. Blank ) from Last 3 Months Family History Medical [...] Info) Description 04/16/2025 12:30 PM EST Appointment [facility] Neurodiagnostics [address] [place], [place] [phone] Alva Blank MD [address] [place] [address] Barber Wray MD [address] [place] [address] Lorri Cortez Health Maintenance Due Date Last [...] - PCV) 2000 Mammogram 2021 COVID-19 Vaccine ( - 2023- season) 12/04/202312/2020, 05/21/2020 Influenza Vaccine (#1) 2023 Alcohol/Substance Use Screening 04/04/2024 Depression Screening and Follow-Up 04/04/2024 Social Drivers of Health Xiomara ual Screening 04/04/2024 DTaP,Tdap,and Td Vaccines (4 - Td or Tdap) 01/23/2032 01/22/2022, 01/13/2016, 11/20/2014 RSV Vaccine (60+ years old a nd patients) (1 - 1-dose 75+ series) 2056 Insurance [place] [address] Care Teams Gis Mapping Technician Relationship Specialty Start Date End Date Emma Benjamin [address] [facility] [place] [address] PCP - General Internal Medicine 02/07/24
== END ==
LOC: HO.CARD 09:33
PROVIDERS: PCP Internal Medicine; Visit Provider Internal Medicine
DX: R94.31 Abnormal electrocardiogram [ECG] [EKG] (principal)
CPT/HCPCS: 93005

== ENCOUNTER → 2024-05-30 09:42 | Outpatient (BNV) | payer OTHER, SELFPAY | PROVIDERS: PCP Internal Medicine; Visit Provider Internal Medicine Cardiovascular Disease | DX: I25.2 Old myocardial infarction (principal) | CPT/HCPCS: 93010 ==

== ENCOUNTER 2024-06-26 14:38 | Outpatient (REF) | payer OTHER, SELFPAY ==
--- NOTE | ~2024-06-26 | XR_ITS ---
EXAMINATION: XR CERVICAL SPINE CLINICAL INFORMATION: M54.2 - Cervicalgia COMPARISON: None available. TECHNIQUE: 3 views of the cervical spine were obtained. FINDINGS: Craniocervical junction is intact. Mild marginal osteophyte formation and decreased intervertebral disc height C5-6. No acute cortical disruption or malalignment. No lytic or blastic lesions. Upper airway is patent. XR/XR cervical spine 2V IMPRESSION: Mild spondylosis C5-6. Electronically signed by: Chema Phan MD 06/27/2024 03:00 PM EDT
--- OUTSIDE RECORDS SUMMARY | 2024-06-26 18:24 | XMS_ITS | Encounter Summary ---
Author Organization [facility] Address [address] [place] [address] Care Team Providers Care Manager Export Name Role Phone Orlando Emma Jarvis Primary Care Provider [phone] Encounter Details Date Type Department Care Team (Late st Contact Info) Description 06/18/2024 myChart Message [facility] Neurology Clinic [address] [place], [place] [phone] Alva Blank MD [address] [place] [address] [phone] Botox Social History Tobacco Use Types Packs/Day Years [...] Appointment [facility] Neurodiagnostics [address] [place], [place] [phone] Alva Blank MD [address] [place] [address] 73264 Barber Wray MD [address] [place] [address] Lorri Cortez documented as of this encounter Visit Diagnoses Not on filedocumented in this encounter Care Teams Manager Export Relationship Specialty Start Date End Date Emma Benjamin [address] [place] [address] [place] [address] PCP - General Internal Medicine 02/07/24 documented as of this encounter
--- OUTSIDE RECORDS SUMMARY | 2024-06-26 18:24 | XMS_ITS | Encounter Summary ---
Author Organization [facility] Address [address] [place] [address] Care Team Providers Care Senior Database Engineer Name Role Phone Emma Benjamin Primary Care Provider [phone] Reason for Visit * Reason Onset Date Comments PAC Appt Request - Established 06/07/2024 Encounter Details Date Type Department Care Team (Late st Contact Info) Description 06/07/2024 Telephone [facility] Neurology Clinic [address] [place], [place] [phone] Telephone Intake, Staff PAC Appt Request - Established Social History [...] encounter Miscellaneous Notes * Telephone Encounter - Vandana Alarcon - 06/07/2024 3:18 PM EST Pt calling and would like to schedule procedure for Botox injection, will be going through pt Workmens Comp Best call back number [phone] Thank you documented in this encounter Plan of Treatment Upcoming Encounters Date Type Department Care Team (Late st Contact Info) Description 04/16/2025 12:30 PM EST Appointment [facility] Neurodiagnostics [address] [place] [address] Alva Blank MD [address] [place], [place] [phone] Barber Wray MD [address] [place], [place] [phone] Lorri Cortez documented as of this encounter Visit Diagnoses Not on filedocumented in this encounter Care Teams Senior Database Engineer Relationship Specialty Start Date End Date Emma Benjamin [address] [place] [address] [place] [address] PCP - General Internal Medicine 02/07/24 documented as of this encounter
--- OUTSIDE RECORDS SUMMARY | 2024-06-26 18:24 | XMS_ITS | Encounter Summary ---
Author Organization [facility] Address [address] [place] [address] Care Team Providers Care Rn Admit Name Role Phone Emma Benjamin Primary Care Provider [phone] Encounter Details Date Type Department Care Team (Late st Contact Info) Description 04/28/2024 myChart Message [facility] Neurology Clinic [address] [place] [address] [phone] Alva Blank MD [address] [place] [address] 57221 Biofeedback therapy Social History Tobacco Use Types [...] Info) Description 04/16/2025 12:30 PM EST Appointment [facility] Neurodiagnostics [address] [place] [address] 33805 Alva Blank MD [address] [place] [address] [phone] Barber Wray MD [address] [place] [address] [phone] Lorri Cortez documented as of this encounter Visit Diagnoses Not on filedocumented in this encounter Care Teams Rn Admit Relationship Specialty Start Date End Date Emma Benjamin [address] [place] [address] [place] [address] PCP - General Internal Medicine 02/07/24 documented as of this encounter
--- OUTSIDE RECORDS SUMMARY | 2024-06-26 18:24 | XMS_ITS | Encounter Summary ---
Author Organization [facility] Address [address] [place] [address] Care Team Providers Care Human Resources Manager Name Role Phone Emma Benjamin Primary Care Provider Reason for Visit * Reason Onset Date Comments PAC Appt Request - Established- Alva momin MD 05/01/2024 Encounter Details Date Type Department Care Team (Late st Contact Info) Description 05/01/2024 Telephone [facility] [address] [place] [address] 03745 Telephone Intake, Staff PAC Appt Request - [...] Please reach to pt to discuss. # [phone] documented in this encounter Plan of Treatment Upcoming Encounters Date Type Department Care Team (Late st Contact Info) Description 04/16/2025 12:30 PM EST Appointment [facility] Neurodiagnostics [address] [place] [address] Alva Blank MD [address] [place] [address] Barber Wray MD [address] [place] [address] Lorri Cortez documented as of this encounter Visit Diagnoses Not on filedocumented in this encounter Care Teams Human Resources Manager Relationship Specialty Start Date End Date Emma Benjamin [address] [place] [address] [place] [address] PCP - General Internal Medicine 02/07/24 documented as of this encounter
--- OUTSIDE RECORDS SUMMARY | 2024-06-26 18:24 | XMS_ITS | Referral Summary ---
Author Organization [facility] Address [address] [place] [address] Care Team Providers Care Behavior Interventionist Name Role Phone Emma Benjamin Primary Care Provider [phone] Encounters Date Type Department Care Team Description 06/18/2024 myChart Message [facility] Neurology Clinic [address] [place] [address] 01620 Alva Blank MD Botox 06/07/2024 Telephone [facility] Neurology Clinic [address] [place] [address] 65915 Telephone Intake, Staff PAC Appt Request - Established 06/04/2024 myChart Message [facility] Neurology Clinic [address] [place] [address] 27117 Alva Blank MD Botox and update 05/28/2024 12:00 PM [facility] Telehealth [facility] Neurology Clinic [address] [place] [address] 87777 Alva Blank MD Post concussion syndrome (Primary Dx); Chronic post-traumatic headache, not intractable 05/23/2024 Orders Only [facility] Neurology Clinic [address] [place] [address] 41610 Alva Blank MD 05/15/2024 myChart Message [facility]rology Clinic [address] [place] [address] 15715 Jackson Carter LPN Making appointment 05/15/2024 Orders Only [facility] Neurology Clinic [address] [place] [address] Alva Blank MD Post concussion syndrome (Primary Dx) 05/14/2024 Orders Only [facility] Neurology Clinic [address] [place] [address] 38104 Alva Blank MD 05/14/2024 Telephone [facility]rology Clinic [address] [place] [address] 98617 Telephone Intake, Staff PAC Alva Hauser Patient Request Call Back; PAC Order Request; PAC Appt Request - Established 05/13/2024 Orders Only [facility] Neurology Clinic [address] [place] [address] 06282 Alva Blank MD Post concussion syndrome (Primary Dx) 05/09/2024 myChart Message [facility] Neurology Clinic [address] [place] [address] 35887 Alva Blank MD Vestibular therapy 05/09/2024 Telephone [facility]rology Clinic [address] [place] [address] 61537 Alva Blank MD 05/07/2024 myChart Message [facility] Clinic [address] [place] [address] 81137 Alva Blank MD Work note 05/01/2024 Telephone [facility] [address] [place] [address] 79586 Telephone Intake, Staff PAC Appt Request - Established- Alva Blank MD 04/28/2024 myChart Message [facility] Neurology Clinic [address] [place] [address] 04790 Alva Blank MD Biofeedback therapy 04/06/2024 11:00 AM [facility] Telehealth [facility] Neurology Clinic [address] [place] [address] 23560 Alva Blank MD Post concussion syndrome (Primary Dx); Concussion syndrome from Last 3 Months Allergies Active Allergy [...] 30 capsule 2 5 08/08/19 25 Active Active Problems Problem Noted Date Diagnosed Date Chronic migraine w/o aura, not intractable, w/o stat migr 06/06/2024 Social History Tobacco Use Types Packs/Day Years [...] Appointment [facility] Neurodiagnostics [address] [place], [place] [phone] Alva Blank MD [address] [place], [place] [phone] Barber Wray MD [address] [place], [place] [phone] Lorri Cortez Insurance [facility] INS Care Teams Behavior Interventionist Relationship Specialty Start Date End Date Emma Benjamin [address] [facility] [address] Shannon [place], [place] [address] PCP - General Internal Medicine 02/07/24
--- OUTSIDE RECORDS SUMMARY | 2024-06-26 18:24 | XMS_ITS | Encounter Summary ---
Author Organization [facility] Address [address] [place] [address] Care Team Providers Care Sandwich Hand Name Role Phone Emma Benjamin Primary Care Provider [phone] Reason for Visit * Consultation (Routine) - Authorized Specialty Diagnoses / Procedures Referred By Brandee t Referred To Contact Neurology Diagnoses WC Concussion, Emma Benjamin [address] [place] [address] [place] [address] Phone: tel: fax: [facility] [address] [place] [address] Phone: tel: fax: Referral ID Status Reason Start Date Expiration Date V isits Requested Visits Authorized [id number] Authorized 10/13/2023 08/08/2025 6 6 Encounter Details Date Type Department Care Team (Late st Contact Info) Description 05/28/2024 12:00 PM [facility] Telehealth [facility] [address] [place] [address] Alva Blank MD [address] [place] [id number] Post concussion syndrome (Primary Dx); Chronic post-traumatic headache, not intractable Social History Tobacco Use Types Packs/Day Years [...] AM EST documented as of this encounter Progress Notes * Alva Blank MD - 05/28/2024 12:12 PM EST New/Consult Note The provider would like to use a new technology product that will automatically document your encounter based on a recording of your conversation today. This will allow them to spend more time focused on you. Is it okay with you if we record your conversation? Patient consents to be recorded by [employer] system. I performed this visit using real-time telehealth tools, including a live audio video connection between my location ([place]) and the patient's location (their home). The patient requested/scheduled this visit. Telehealthparticipants: None Prior to beginning the telehealth visit, the patient's informed verbal consent to perform this visit using telehealth tools was obtained. I am comfortable that this visit could be performed effectively using telehealth tools. The patient's history and medical records were reviewed. I have informed the patient that in the case they felt that they needed to be seen in person, that an in person visit could be arranged. Referring Provider: Emma Benjamin Reason for Referral: HPI: Nelly Tucker is a 43 y.o. female History of Present Illness The patient presents via virtual visit for follow-up of a head injury. Patient is a 43 yo woman with pmh of asthma, fallopian tubes removed in July of constant bleeding, anxiety (only ever needed medication for procedures) presents for follow up from head injury on 10/13/23. She reports a slight improvement in her condition over the past week, attributing this to a reduction in work-related stress. She continues to experience headaches, nausea, and intermittent vomiting,occurring 3 to 4 days per week. She also reports persistent dizziness and blurred vision. She has been experiencing mild headaches since October, which intensify with cognitive or social activities. Herheadaches are accompanied by dizziness and visual disturbances, including blurriness and difficultyfocusing. She has been experiencing daily headaches since her concussion, which worsen with physical activity, chiropractic treatment, vestibular therapy, and grocery shopping. She reports constant nausea, which she manages with Zofran, although excessive use has led to constipation. She has attempted to manage her symptoms with nortriptyline, but felt that it exacerbated her headaches. Amitriptyline was discontinued due to a hangover effect. She is currently taking magnesium 400 mg, vitamin D, montelukast, and Flexeril daily. Riboflavin was discontinued due to increased nausea. Sumatriptan was ineffective and caused unpleasant side effects. She avoids Tylenol and ibuprofen due to elevated liver enzymes. She takes lorazepam for anxiety related to doctor's appointments, but it does not alleviate her dizziness. She has been attending vestibular therapy since 05/18/2024, with 1 session last week and 2 scheduled for this week. She finds the eye exercises challenging and reports difficultyreading aloud to her 2-year-old daughter. She has been managing her symptoms by looking down while grocery shopping. She has been monitoring her heart rate during exercise and has noticed an increasewhen looking up. She has experienced episodes of tachycardia, with heart rates reaching 190 and 209bpm during minimal physical activity and after chiropractic treatment, respectively. When she was going into work she was getting hives, which she attributes to stress, and is concerned about returning to work due to these symptoms. She is currently on leave from work until 06/06/2024 and is seeking advice on whether to return. She recently underwent an EKG at [facility], which revealed a septal infarct of undetermined age. This test was ordered following an episode of chest tightness post-concussion. She has been referred to cardiology for further evaluation. ROS: performed and negative except as per above MEDICATIONS -nortriptyline - headache worse 30-45 minutes after taking it -amitriptyline - hangover the next day -magnesium - 400 mg daily -riboflavin - increased nausea around that time - vomiting multiple times per day -sumatriptan - not helpful - felt weird -tylenol and ibuprofen - elevated LFTs - not taking tylenol or ibuprofen -flexeril every day -work note through the 06 of june Objective There were no vitals taken for this visit. Physical Exam Exam limited due to telehealth APPEARANCE: No apparent distress COGNITION: Alert. Oriented to person, place, situation, and date. Attention good for interviewing with appropriate responses. Memory for recent events and remote events intact. Affect is euthymic, behavior cooperative. SPEECH: Normal rate, normal volume, normal prosody, no dysarthria, normal grammar. No aphasia notedwith good comprehension and fluent speech. HEENT: Head is atraumatic, normocephalic. Conjunctivae nonerythematous and nonicteric. CRANIAL NERVES: Cranial nerves grossly normal Results No recent pertinent results Assessment & Plan Patient is a 43 yo woman with pmh of asthma, fallopian tubes removed in July of constant bleeding, anxiety (only ever needed things for procedures) follows up for evaluation of head injury on 10/13/23. CTH following the injury was normal. Exam in the past has been non-focal. Patient's symptoms consistent with post concussion syndrome.She reports significant symptom burden including headache, neck pain, nausea, lightheadedness and mental overstimulation in certain situations - with bright lights, loud noises, and lots of people. Her symptoms seem to improve slightly, however worsened after her return to work. She is currently back out of work. Has tried nortriptyline, amitriptyline, Tylenol, ibuprofen, and riboflavin, is currently on magnesium. Her symptoms may be indicative of post-traumatic migraines, which are common following a head injury. The overstimulation component could also be related to migrainous features, however suspect theremay also be an underlying stress response contributing. Despite her assertion that her mood is stable, it is possible that a low dose medication could alleviate some of her anxiety or mood symptoms, even if she does not report significant issues in these areas. Her hives may be stress-induced, and her tachycardia could be an autonomic response to perceived stressors. It is also worth considering that her work environment, where her injury occurred, may be contributing to her stress levels. She is advised to continue with her current therapy regimen. A trial of Botox injections will be initiated to manage her headaches. The potential risks and benefits of Botox were discussed, and she provided informed consent. She will be contacted to schedule the Botox procedure. -Continue to work on mood management due to concern for anxiety component of symptoms -Will refer for Botox given patient's daily headache with migrainous features consistent with post-traumatic migraines I spent a total of 30 minutes on the date of encounter, which included: ?? Preparing to see the patient (e.g., review of test results) ?? Obtaining and/or reviewing separately obtained history ?? Performing a medically appropriate exam and/or evaluation ?? Counseling and educating the patient/family/caregiver ?? Ordering medications, tests, procedures ?? Documenting clinical information in the health record Alva Blank MD [facility] Dept of Neurology documented in this encounter Plan of Treatment Upcoming Encounters Date Type Department Care Team (Late st Contact Info) Description 04/16/2025 12:30 PM EST Appointment [facility] Neurodiagnostics [address] [place], [place] [phone] Alva Blank MD [address] [place] [address] Barber Wray MD [address] [place], [place] [phone] Lorri Cortez documented as of this encounter Visit Diagnoses Diagnosis Post concussion syndrome- Primary Postconcussion syndrome Chronic post-traumatic headache, not intractable documented in this encounter Care Teams Sandwich Hand Relationship Specialty Start Date End Date Emma Benjamin [address] [place] [address] [place] [address] PCP - General Internal Medicine 02/07/24 documented as of this encounter
--- OUTSIDE RECORDS SUMMARY | 2024-06-26 18:24 | XMS_ITS | Clinical Summary ---
Author Organization [facility] Address [address] [place] [address] Care Team Providers Care Care Technician Name Role Phone Emma Benjamin Primary Care Provider [phone] Allergies Active Allergy Reactions Criticality Noted Date [...] aura, not intractable, w/o stat migr 06/06/2024 Encounters Date Type Department Care Team Description 06/18/2024 myChart Message [facility] [address] [place] [phone] Alva Blank MD Botox 06/07/2024 Telephone [facility] [address] [place] [address] Telephone Intake, Staff PAC Appt Request - Established 06/04/2024 myChart Message [facility] [address] [place] [phone] Alva Blank MD Botox and update 05/28/2024 12:00 PM [facility] [address] [place] [address] Alva Blank MD Post concussion syndrome (Primary Dx); Chronic post-traumatic headache, not intractable 05/23/2024 Orders Only [facility] [address] [place] [address] Alva Blank MD 05/15/2024 EverZerohart Message [facility] [address] [place] [phone] Jackson Carter LPN Making appointment 05/15/2024 Orders Only [facility] [address] [place] [id number] Alva Blank MD Post concussion syndrome (Primary Dx) 05/14/2024 Orders Only [facility] [address] [place] [address] Alva Blank MD 05/14/2024 Telephone [facility] [address] [place] [address] Telephone Intake, Staff PAC Alva Hauser Patient Request Call Back; PAC Order Request; PAC Appt Request - Established 05/13/2024 Orders Only [facility] [address] [place] [address] Alva Blank MD Post concussion syndrome (Primary Dx) 05/09/2024 myChart Message [facility] [address] [place] [address] Alva Blank MD Vestibular therapy 05/09/2024 Telephone [facility] [address] [place] [address] Alva Blank MD 05/07/2024 myChart Message [facility] [address] [place] [address] Alva Blank MD Work note 05/01/2024 Telephone [facility] [address] [place] [address] Telephone Intake, Staff PAC Appt Request - Established- Alva Blank MD 04/28/2024 EverZerohart Message [facility] [address] [place] [address] Alva Blank MD Biofeedback therapy 04/06/2024 11:00 AM [facility] Telehealth [facility] [address] [place] [address] Alva Blank MD Post concussion syndrome (Primary Dx); Concussion syndrome from Last 3 Months Family History Medical [...] Info) Description 04/16/2025 12:30 PM EST Appointment [facility] Neurodiagnostics [address] [place] [address] Alva Blank MD [address] [place] [address] Barber Wray MD [address] [place] [address] Lorri Cortez Health Maintenance Due Date Last [...] (1 - 1-dose 75+ series) 2056 Insurance [facility] Care Teams Care Technician Relationship Specialty Start Date End Date Emma Benjamin [address] [place] [address] [place] [address] PCP - General Internal Medicine 02/07/24
--- OUTSIDE RECORDS SUMMARY | 2024-06-26 18:24 | XMS_ITS | Clinical Summary ---
Author Organization [facility] Address [address] [place] [address] Care Team Providers Care District Sales Representative Name Role Phone Unknown Primary Care Provider [phone] Allergies Active Allergy Reactions Criticality Noted Date Comments Vancomycin GI Intolerance/Nausea/Vomiting Low 10/14 Medications Medication Sig Dispensed Refills Start Date End Date Status montelukast (SINGULAIR) 10 MG tablet Take 10 mg by mouth nightly. Active ibuprofen (MOTRIN) 600 MG tabletIndications:Concu ssion without loss of consciousness, initial encounter Take 1 tablet (600 mg total) by mouth 4 times daily (every 6 hours) as needed for mild pain. 30 tablet 10/15/2023 Active ondansetron (ZOFRAN-ODT) 4 MG disintegrating tabletIndications:Concu ssion without loss of consciousness, initial encounter Take 1 tablet (4 mg total) by mouth 3 times daily (every 8 hours) as needed for nausea or vomiting. Place tablet on tongue to dissolve. 20 tablet 10/15/2023 Active cyclobenzaprine (FLEXERIL) 10 MG tabletIndications:Concu ssion without loss of consciousness, initial encounter Take 1 tablet (10 mg total) by mouth 3 times daily (every 8 hours) as needed for muscle spasms. 30 tablet 10/15/2023 Active Active Problems No known active problems Social History Tobacco Use Types Packs/Day Years Used Date Smoking Tobacco: Never Assessed Sex and Gender Information Value Date Recorded Sex Assigned at Not on file Gender Identity Not on file Sexual Orientation Not on file Last Filed Vital Signs Vital Sign Reading Time Taken Comments Blood Pressure 125/71 10/15/2023 6:45 PM EDT Pulse 92 10/15/2023 6:45 PM EDT Temperature 37.1 ??C (98.8 ??F) 10/15/2023 6:45 PM ED T Respiratory Rate - - Oxygen Saturation 99% 10/15/2023 6:45 PM EDT Inhaled Oxygen Concentration - - Weight - - Height - - Body Mass Index - - Plan of Treatment Health Maintenance Due Date Last Done Comments Hepatitis C Virus Screening 1981 HIV Screening 1994 DTaP/Tdap/Td Vaccines (1 - Tdap) 2000 Hepatitis B Vaccines (1 of 3 - 19+ 3-dose series) 2000 Pap Smear (Ages 21-65) 2002 Mammogram 2021 Influenza Vaccine 11/03/2023 COVID-19 Vaccine ( - 2023-2 5 season) 2023 HPV Vaccines Aged Out No longer eligi ble based on patient's age to complete this topic Pneumococcal Vaccine: Pediat cristiano (0-5 Years) and At-Risk Patients (6 to 49 Years) Aged Out No longer eligible b ased on patient's age to complete this topic Care Teams District Sales Representative Relationship Specialty Start Date End Date Unknown Unknow Provider Address PCP - General 10/15/23
--- OUTSIDE RECORDS SUMMARY | 2024-06-26 18:24 | XMS_ITS | Encounter Summary ---
Author Organization [facility] Address [address] [place] [address] Care Team Providers Care Remnants Cutter Name Role Phone Orlando Emma Jarvis Primary Care Provider [phone] Encounter Details Date Type Department Care Team (Late st Contact Info) Description 05/07/2024 myChart Message [facility] [address] [place], [place] [phone] Alva Blank MD [address] [place] [address] Work note Social History Tobacco Use Types [...] Info) Description 04/16/2025 12:30 PM EST Appointment [facility] [address] [place], [place] [phone] Alva Blank MD [address] [place] [address] Barber Wray MD [address] [place] [address] Lorri Cortez documented as of this encounter Visit Diagnoses Not on filedocumented in this encounter Care Teams Remnants Cutter Relationship Specialty Start Date End Date Emma Benjamin [address] [place] [address] [place] [address] PCP - General Internal Medicine 02/07/24 documented as of this encounter
--- OUTSIDE RECORDS SUMMARY | 2024-06-26 18:24 | XMS_ITS | Encounter Summary ---
Author Organization [facility] Address [address] [place] [address] Care Team Providers Care Director Of Food And Nutrition Name Role Phone Emma Benjamin Primary Care Provider [phone] Reason for Visit * Reason Onset Date Comments PAC Alva Hauser Patient Request Call Back 0 05/14/2024 PAC Order Request 05/14/2024 PAC Appt Request - Established 05/14/2024 Encounter Details Date Type Department Care Team (Late st Contact Info) Description 05/14/2024 Telephone [facility] [address] [place], [place] [phone] Telephone Intake, Staff PAC Alva Hauser Patient [...] this. Please reach out to pt @ [phone]. Thank you documented in this encounter Plan of Treatment Upcoming Encounters Date Type Department Care Team (Late st Contact Info) Description 04/16/2025 12:30 PM EST Appointment [facility] Neurodiagnostics [address] [place], [place] [phone] Alva Blank MD [address] [place] [address] Barber Wray MD [address] [place] [address] Lorri Cortez documented as of this encounter Visit Diagnoses Not on filedocumented in this encounter Care Teams Director Of Food And Nutrition Relationship Specialty Start Date End Date Emma Benjamin [address] [place] [address] [place] [address] PCP - General Internal Medicine 02/07/24 documented as of this encounter
--- OUTSIDE RECORDS SUMMARY | 2024-06-26 18:24 | XMS_ITS | Encounter Summary ---
Author Organization [facility] Address [address] [place] [address] Care Team Providers Care Emergency Management Program Specialist Name Role Phone StuartEmma Gurrola Primary Care Provider [phone] Encounter Details Date Type Department Care Team (Late st Contact Info) Description 06/04/2024 myChart Message [facility] [address] [place] [address] Alva Blank MD [address] [place] [address] Botox and update Social History Tobacco Use Types Packs/Day Years [...] Info) Description 04/16/2025 12:30 PM EST Appointment [facility] Neurodiagnostics [address] [place], [place] [phone] Alva Blank MD [address] [place] [address] Barber Wray MD [address] [place] [address] Lorri Cortez documented as of this encounter Visit Diagnoses Not on filedocumented in this encounter Care Teams Emergency Management Program Specialist Relationship Specialty Start Date End Date Emma Benjamin [address] [place] [address] [place] [address] PCP - General Internal Medicine 02/07/24 documented as of this encounter
--- OUTSIDE RECORDS SUMMARY | 2024-06-26 18:24 | XMS_ITS | Encounter Summary ---
Author Organization [facility] Address [address] [place] [address] Care Team Providers Care Operations Liaison Name Role Phone Orlando Emma Jarvis Primary Care Provider [phone] Encounter Details Date Type Department Care Team (Late st Contact Info) Description 05/15/2024 myChart Message [facility] [address] [place] [address] Jackson Carter LPN Making appointment Social History [...] Info) Description 04/16/2025 12:30 PM EST Appointment [facility] Neurodiagnostics [address] [place] [address] Alva Blank MD [address] [place] [address] Barber Wray MD [address] [place] [address] Lorri Cortez documented as of this encounter Visit Diagnoses Not on filedocumented in this encounter Care Teams Operations Liaison Relationship Specialty Start Date End Date Emma Benjamin [address] [facility] [address] Shannon [place]tega, [place] [address] PCP - General Internal Medicine 02/07/24 documented as of this encounter
== END 2024-06-26 14:39 | disposition home or self-care (01) ==
LOC: HO.XRAY 14:38
PROVIDERS: PCP Internal Medicine; Visit Provider Internal Medicine
DX: M54.2 Cervicalgia (principal)
CPT/HCPCS: 72040

== ENCOUNTER → 2024-06-26 14:44 | Outpatient (BNV) | payer OTHER, SELFPAY | PROVIDERS: PCP Internal Medicine; Visit Provider Radiology Diagnostic Radiology | DX: M54.2 Cervicalgia (principal) | CPT/HCPCS: 72040 ==

== ENCOUNTER 2024-07-03 12:55 | Outpatient (AMB) | payer OTHER, SELFPAY ==
--- NOTE | 2024-07-03 12:57 | A.OFFVIS_ITS ---
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 Patient was a 43-year-old female with past history of no significance. 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 Since then she has not been feeling well. She has had headaches. However she was also had symptoms. The symptoms have not subsided. Symptoms are not particularly positional in nature but can be when she is upright for long period time. She does not have any symptoms with sudden change in position. However when she lies down at nighttime she can hear pulsations. She said with exercise she was to get significantly marked tachycardic response with heart rate up to 200 beats per minute with gradually she has been able to improve 270 beats per minute with minimal exertion. Prior to this incident she was able to exercise and have no symptoms whatsoever. She is very bothered by the symptoms and was referred here for further evaluation. She had EKG done in May with suggested septal infarct pattern based on the QS in lead V1 and V2. She has never had any cardiac symptoms prior to that with no symptoms of chest pain. She was not had any loss of consciousness. She says she has not been able to exercise and this is affected her lifestyle significantly. She drinks adequate amount of fluid and solute at home. [facility] Medical History Moderate persistent asthma, uncomplicated Allergic rhinitis Surgical History Status post surgical removal of both fallopian tubes History of delivery History of esophagogastroduodenoscopy (EGD) History of breast biopsy History of wisdom tooth extraction History of placement of ear tubes History of tonsillectomy and adenoidectomy Family History Father Skin cancer Hypertension CVD (cardiovascular disease) Mother Asthma Hypothyroidism Sister In good health Social History Housing: House Alcohol intake: current Alcohol intake frequency: a few times a week Alcohol type: wine and hard liquor Patient Tobacco Use Status: Never used Tobacco e-Cigarette/Vaping Use: Currently Using Second Hand Smoke Exposure: No service: No Current occupational status: employed Current occupational exposures/hazards: No Cognitive needs: No Hearing needs: No Vision needs: No Review of Systems Const Denies chills, Denies daytime sleepiness, Denies fatigue, Denies fever(s), Denies frequent falls, Denies poor appetite, Denies snoring, Denies stops breathing during sleep, Denies weakness, Denies weight gain and Denies weight loss Eyes Denies loss of vision ENT Denies dizziness and Denies hearing loss Card Denies chest pain, Denies claudication, Denies leg edema, Denies lightheadedness, Denies palpitations, Denies dyspnea, Denies dyspnea on exertion and Denies orthopnea Resp Denies cough, Denies excessive phlegm production, Denies dyspnea, Denies dyspnea on exertion, Denies snoring and Denies wheezing GI Denies abdominal pain, Denies hematochezia, Denies change in bowel habits, Denies nausea and Denies vomiting Denies urinary frequency and Denies dysuria Musc Denies arthralgias, Denies muscle weakness, Denies numbness and Denies other (frequent falls) Skin/Breast Denies nail changes and Denies rash Neuro Denies Abnormal speech present, Denies dizziness, Denies frequent falls, Denies loss of vision, Denies memory loss, Denies numbness and Denies weakness Psych Denies depression and Denies memory loss Endo Denies fatigue and Denies palpitations Abdullahi/Lymph Reports easy bruising and Reports other (anemia) Aller/Immun Denies wheezing Physical Exam Vital Signs: Last Vital Signs Pulse 114 H 07/03/24 13:12 BP 125/88 07/03/24 13:12 BMI result Body Mass Index 20.8 Const General: cooperative, comfortable, no acute distress, well developed, alert, awake and Physically active Nutritional Appearance: well nourished and thin Orientation/consciousness: patient oriented x3 Limitations: no limitations HEENT Head: Yes normocephalic and Yes atraumatic Neck Neck: Yes trachea midline, Yes supple and Yes no JVD Resp Effort & Inspection: normal respiratory effort Auscultation: clear to auscultation bilaterally Cardio Jugular venous distension: no JVD Palpation: normal PMI Rate: regular rate Rhythm: regular rhythm Heart sounds: S1 normal heart sound present, S2 normal heart sound present, no click, no gallops, no murmurs and no rubs GI Auscultation: normal bowel sounds Skin General skin exam: no rashes or lesions noted Neuro General: patient oriented x3 and no focal motor deficits Speech: No Abnormal speech present Extrem General: Yes no clubbing, cyanosis or edema Assessment & Plan Assessment & Plan (1) Dysautonomia: Code(s): G90.1 - Familial dysautonomia [] Plan: Patient with significant symptoms of lightheadedness and tachycardia with minimal exertion since her head injury. Overall findings are suggestive of dysautonomia syndrome either postural orthostatic tachycardia syndrome and/or inappropriate sinus tachycardia. This both blocked spectrum of this autonomic disorders from cardiovascular standpoint. This could have been triggered by her head injury or might have a component of it prior to her recent event in the last year. She remains pretty symptomatic and can not exercise and this has affected her lifestyle significantly. She has adequately increase her fluid intake. I have advised her to stay of stimulants such as energy drinks and/caffeine as well as alcohol. I would like to pursue further testing to evaluate for her hemodynamic response to tilt-table testing as well as a 7 day Holter monitor. EKG shows septal infarct pattern which is a very nonspecific finding and would suggest an echocardiogram to assess for LV systolic and diastolic function but a to evaluate for wall motion abnormality. Based on test findings we can direct treatment including nonselective beta-kia therapy and/or Corlanor therapy to affect her significantly tachycardic heart rate response. Pathophysiology of dysautonomia was discussed with her. Stress mitigation strategies and treatment of anxiety will also help from this perspective. This was discussed with her. Will follow with her in 3 months time, sooner p.r.n.. Thank you for allowing me to partake in her care Orders: Orders ECG Tilt Table Test Today ECG 7 day holter monitor Today R00.0 - Tachycardia, unspecified CA echo transthoracic complete Today R94.31 - Abnormal electrocardiogram [ECG] [EKG] Coding Level of Care Code New Pt Level 4 (17817) Complex EM visit Add On G2211 Diagnoses Dysautonomia G90.1
[2024-07-03 12:58] VITALS: BP 124/79; PULSE 101; BMI 20.8
[2024-07-03 13:10] VITALS: BP 132/86; PULSE 98
[2024-07-03 13:12] VITALS: BP 125/88; PULSE 114
--- OUTSIDE RECORDS SUMMARY | 2024-07-03 15:05 | XMS_ITS | Clinical Summary ---
Author Organization [facility] Address [address] [place] [address] Phone Care Team Providers Care Maintenance Service Technician Name Role Phone Unavailable Primary Care Provider Unavailabl e Social History Tobacco Use Types Packs/Day Years Used Date Smoking Tobacco: Never Assessed Comments Unknown Sex and Gender Information Value Date Recorded Sex Assigned at Not on file Legal Sex Female 1:30 PM EDT Gender Identity Not on file Sexual Orientation Not on file Plan of Treatment Upcoming Encounters Date Type Department Care Team ([facility] st Contact Info) Description 08/14/2024 1:[address] [facility] Xray [address] [place] [address] Health Maintenance Due Date Last Done Comments Breast Cancer Screening 1981 DTaP,Tdap,and Td Vaccines (1 - Tdap) 2000 Hepatitis B Vaccines (1 of 3 - 19+ 3-dose series) 2000 Cervical Cancer Screening: P ap Smear 2002 COVID-19 Vaccine (2023-2 5 season) 2023 Influenza Vaccine (Season Ended) 2024 HIB Vaccines Aged Out No longer eligi ble based on patient's age to complete this topic HPV Vaccines Aged Out No longer eligi ble based on patient's age to complete this topic Hepatitis A Vaccines Aged Out No long er eligible based on patient's age to complete this topic IPV Vaccines Aged Out No longer eligi ble based on patient's age to complete this topic MMR Vaccines Aged Out No longer eligi ble based on patient's age to complete this topic Meningococcal ACWY Vaccine Aged Out N o longer eligible based on patient's age to complete this topic Meningococcal B Vacine Aged Out No lo nger eligible based on patient's age to complete this topic Pneumococcal Vaccine: Pediat rics (0 to 5 Years) and At-Risk Patients (6 to 64 Years) Aged Out No longer eligible b ased on patient's age to complete this topic RSV Immunization Patients Un wanda 20 months Aged Out No longer eligible b ased on patient's age to complete this topic Varicella Vaccines Aged Out No longer eligible based on patient's age to complete this topic
--- OUTSIDE RECORDS SUMMARY | 2024-07-03 15:06 | XMS_ITS | Encounter Summary ---
Author Organization [facility] Address [address] [place] [address] Care Team Providers Care Scale Adjuster Name Role Phone Emma Benjamin Primary Care Provider [phone] Encounter Details Date Type Department Care Team (Late st Contact Info) Description 06/18/2024 myChart Message [facility] [address] [place] [phone] Alva Blank MD [address] [place] [address] [phone] Botox Social History Tobacco Use Types Packs/Day [...] encounter Miscellaneous Notes * Telephone Encounter - Karma Stone - 06/27/2024 11:11 AM EDT The pharmacy team should be getting botox approval for Worker comp documented in this encounter Plan of Treatment Upcoming Encounters Date Type Department Care Team (Late st Contact Info) Description 04/16/2025 12:30 PM EST Appointment [facility] Neurodiagnostics [address] [place] [address] Alva Blank MD [address] [place] [address] [phone] Barber Wray MD [address] [place] [address] [phone] Lorri Cortez documented as of this encounter Visit Diagnoses Not on filedocumented in this encounter Care Teams Scale Adjuster Relationship Specialty Start Date End Date Emma Benjamin [address] [place] [address] [place] [address] PCP - General Internal Medicine 02/07/24 documented as of this encounter
--- OUTSIDE RECORDS SUMMARY | 2024-07-03 15:06 | XMS_ITS | Encounter Summary ---
Author Organization [facility] Address [address] [place] [address] Care Team Providers Care Director Smb Sales Name Role Phone Emma Benjamin Primary Care Provider [phone] Reason for Visit * Reason Onset Date Comments PAC Appt Request - Established 06/07/2024 Encounter Details Date Type Department Care Team (Late st Contact Info) Description 06/07/2024 Telephone [facility] Neurology [facility] [address] [place], [place] [phone] Telephone Intake, Staff PAC Appt Request - [...] pt Workmens Comp Best call back number [phone] Thank you documented in this encounter Plan of Treatment Upcoming Encounters Date Type Department Care Team (Late st Contact Info) Description 04/16/2025 12:30 PM EST Appointment [facility] Neurodiagnostics [address] [place] [address] Alva Blank MD [address] [place], [place] [phone] Barber Wray MD [address] [place], [place] [phone] Lorri Cortez documented as of this encounter Visit Diagnoses Not on filedocumented in this encounter Care Teams Director Smb Sales Relationship Specialty Start Date End Date Emma Benjamin [address] [place] [address] [place] [address] PCP - General Internal Medicine 02/07/24 documented as of this encounter
--- OUTSIDE RECORDS SUMMARY | 2024-07-03 15:06 | XMS_ITS | Clinical Summary ---
Author Organization [facility] Address [address] [place] [address] Care Team Providers Care Editor Farm Journal Name Role Phone Unknown Primary Care Provider [phone] Allergies Active Allergy Reactions Criticality Noted [...] age to complete this topic Care Teams Editor Farm Journal Relationship Specialty Start Date End Date Unknown Unknow Provider Address PCP - General 10/15/23
--- OUTSIDE RECORDS SUMMARY | 2024-07-03 15:06 | XMS_ITS | Referral Summary ---
Author Organization [facility] Address [address] [place] [address] Care Team Providers Care Environmental Laboratory Technician Name Role Phone Emma Benjamin Primary Care Provider [phone] Encounters Date Type Department Care Team Description 06/18/2024 myChart Message [facility] [address] [place] [phone] Alva Blank MD Botox 06/07/2024 Telephone [facility] [address] [place] [phone] Telephone Intake, Staff PAC Appt Request - Established 06/04/2024 myChart Message [facility] [address] [place] [phone] Alva Blank MD Botox and update 05/28/2024 12:00 PM [facility] Telehealth [facility] [address] [place] [phone] Alva Blank MD Post concussion syndrome (Primary Dx); Chronic post-traumatic headache, not intractable 05/23/2024 Orders Only [facility] [address] [place] [phone] Alva Blank MD 05/15/2024 myChart Message [facility] [address] [place] [address] [phone] Jackson Carter LPN Making appointment 05/15/2024 Orders Only [facility] Neu[facility] [address] [place] [address] Alva Blank MD Post concussion syndrome (Primary Dx) 05/14/2024 Orders Only [facility] [address] [place] [phone] Alva Blank MD 05/14/2024 Telephone [facility] [address] [place] [phone] Telephone Intake, Staff PAC Alva Hauser Patient Request Call Back; PAC Order Request; PAC Appt Request - Established 05/13/2024 Orders Only [facility] [address] [place] [phone] Alva Blank MD Post concussion syndrome (Primary Dx) 05/09/2024 myChart Message [facility] [address] [place] [address] Alva Blank MD Vestibular therapy 05/09/2024 Telephone [facility] [address] [place] [phone] Alva Blank MD 05/07/2024 myChart Message [facility] [address] [place] [phone] Alva Blank MD Work note 05/01/2024 Telephone [facility] [address] [place] [phone] Telephone Intake, Staff PAC Appt Request - Established- Alva Blank MD 04/28/2024 myChart Message [facility] [address] [place] [phone] Alva Blank MD Biofeedback therapy 04/06/2024 11:00 AM [facility] Telehealth [facility] [address] [place] [address] Alva Blank MD Post concussion syndrome (Primary [...] Info) Description 04/16/2025 12:30 PM EST Appointment [facility] Neurodiagnostics [address] [place], [place] [phone] Alva Blank MD [address] [place], [place] [phone] Barber Wray MD [address] [place], [place] [phone] Lorri Cortez Insurance [facility] Care Teams Environmental Laboratory Technician Relationship Specialty Start Date End Date Emma Benjamin [address] [facility] [address] Shannon Ortega, [place] [address] PCP - General Internal Medicine 02/07/24
--- OUTSIDE RECORDS SUMMARY | 2024-07-03 15:06 | XMS_ITS | Encounter Summary ---
Author Organization [facility] Address [address] [place] [address] Care Team Providers Care Information Technology Specialist Name Role Phone WellingtonEmma Gurrola Primary Care Provider [phone] Encounter Details Date Type Department Care Team (Late st Contact Info) Description 06/04/2024 myChart Message [facility] Neurology Clinic [address] [place] [address] Alva Blank MD [address] [place] [address] Botox and update Social History Tobacco Use [...] Info) Description 04/16/2025 12:30 PM EST Appointment [facility] Neurodiagnostics [address] [place], [place] [phone] Alva Blank MD [address] [place] [address] Barber Wray MD [address] [place] [address] Lorri Cortez documented as of this encounter Visit Diagnoses Not on filedocumented in this encounter Care Teams Information Technology Specialist Relationship Specialty Start Date End Date Emma Benjamin [address] [place] [address] [place] [address] PCP - General Internal Medicine 02/07/24 documented as of this encounter
--- OUTSIDE RECORDS SUMMARY | 2024-07-03 15:06 | XMS_ITS | Clinical Summary ---
Author Organization [facility] Address [address] [place] [address] Care Team Providers Care Radiological Engineer Name Role Phone Emma Benjamni Primary Care Provider [phone] Allergies Active Allergy Reactions Criticality Noted Date [...] Department Care Team Description 06/18/2024 myChart Message [facility] [address] [place] [phone] Alva Blank MD Botox 06/07/2024 Telephone [facility] [address] [place] [phone] Telephone Intake, Staff PAC Appt Request - Established 06/04/2024 myChart Message [facility] [address] [place] [address] Alva Blank MD Botox and update 05/28/2024 12:00 PM [facility] [address] [place] [phone] Alva Blank MD Post concussion syndrome (Primary Dx); Chronic post-traumatic headache, not intractable 05/23/2024 Orders Only [facility] Neurology [facility] [address] [place] [phone] Alva Blank MD 05/15/2024 Handangohart Message [facility] [address] [place] [phone] Jackson Carter LPN Making appointment 05/15/2024 Orders Only [facility] [address] [place] [address] 69[address] Alva Blank MD Post concussion syndrome (Primary Dx) 05/14/2024 Orders Only [facility] [address] [place] [address] Alva Blank MD 05/14/2024 Telephone [facility] [address] [place] [address] Telephone Intake, Staff PAC Alva Hauser Patient Request Call Back; PAC Order Request; PAC Appt Request - Established 05/13/2024 Orders Only [facility] [address] [place] [phone] Alva Blank MD Post concussion syndrome (Primary Dx) 05/09/2024 myChart Message [facility] [address] [place] [address]30 Alva Blank MD Vestibular therapy 05/09/2024 Telephone [facility] [address] [place] [phone] Alva Blank MD 05/07/2024 myChart Message [facility] [address] [place] [address] Alva Blank MD Work note 05/01/2024 Telephone [facility] [address] [place] [address] Telephone Intake, Staff PAC Appt Request - Established- Alva Blank MD 04/28/2024 Handangohart Message [facility] [address] [place] [address] Alva Blank MD Biofeedback therapy 04/06/2024 11:00 AM [facility] Telehealth [facility] Neurology Clinic [address] [place] [address] Alva Blank MD Post concussion syndrome (Primary [...] Info) Description 04/16/2025 12:30 PM EST Appointment [facility] Neurodiagnostics [address] [place] [address] Alva Blank MD [address] [place] [address] Barber Wray MD [address] [place] [address] Lorri Cortez Health Maintenance Due Date Last [...] (1 - 1-dose 75+ series) 2056 Insurance [place] [address] Care Teams Radiological Engineer Relationship Specialty Start Date End Date Emma Benjamin [address] [place] [address] [place] [address] PCP - General Internal Medicine 02/07/24
== END 2024-07-03 13:37 | disposition home or self-care (01) ==
PROVIDERS: PCP Internal Medicine; Visit Provider Internal Medicine Cardiovascular Disease
DX: G90.1 Familial dysautonomia [Riley-Day] (principal)
CPT/HCPCS: 99204

== ENCOUNTER → 2024-07-03 12:55 | Outpatient (BNVA) | payer OTHER, SELFPAY | PROVIDERS: PCP Internal Medicine; Visit Provider Internal Medicine Cardiovascular Disease ==

== ENCOUNTER 2024-07-11 07:52 | Outpatient (AMB) | payer OTHER, SELFPAY ==
--- OUTSIDE RECORDS SUMMARY | 2024-07-11 07:55 | XMS_ITS | Encounter Summary ---
Author Organization [facility] Address [address] [place] [address] Care Team Providers Care Construction Trades Teacher Name Role Phone Emma Benjamin Primary Care Provider Encounter Details Date Type Department Care Team (Late st Contact Info) Description 07/09/2024 Telephone [facility] Neurology Clinic [address] [place], [place] [phone] Alva Blank MD [address] [place] [address] [phone] Social History Tobacco Use Types Packs/Day Years [...] Care Team (Late st Contact Info) Description 07/27/2024 9:15 AM EDT Office Visit [facility] A [address] [place] [address] Ayala Valentine MD [address] [place] [address] 08/24/2024 3:30 PM EDT Appointment [facility] Neurodiagnostics [address] [place] [phone] Alva Blank MD [address] [place] [address] Anya Nuno 04/16/2025 12:30 PM EST Appointment [facility] Neurodiagnostics [address] [place] [phone] Alva Blank MD [address] [place] [address] Barber Wray MD [address] [place] [phone] Lorri Cortez documented as of this encounter Visit Diagnoses Not on filedocumented in this encounter Care Teams Construction Trades Teacher Relationship Specialty Start Date End Date Emma Benjamin [address] [place] [address] [place] [address] PCP - General Internal Medicine 02/07/24 documented as of this encounter
--- OUTSIDE RECORDS SUMMARY | 2024-07-11 07:55 | XMS_ITS | Clinical Summary ---
Author Organization [facility] Address [address] [place] [address] Phone Care Team Providers Care Crime Prevention Worker Name Role Phone Unavailable Primary Care Provider Unavailabl e Social History Tobacco Use Types Packs/Day Years Used Date Smoking Tobacco: Never Assessed Comments Unknown Sex and Gender Information Value Date Recorded Sex Assigned at Not on file Legal Sex Female 1:30 PM EDT Gender Identity Not on file Sexual Orientation Not on file Plan of Treatment Upcoming Encounters Date Type Department Care Team ([facility] st Contact Info) Description 08/14/2024 1:00 PM EDT Appointment [facility] Xray [address] [place] [address] Health Maintenance Due Date Last Done Comments Breast Cancer Screening 1981 DTaP,Tdap,and Td Vaccines (1 - Tdap) 2000 Hepatitis B Vaccines (1 of 3 - 19+ 3-dose series) 2000 Cervical Cancer Screening: P ap Smear 2002 COVID-19 Vaccine (2023-2 5 season) 2023 Depression Screening 07/04/2024 HIV Screening 07/04/2024 Hepatitis C Screening 07/04/2024 Social Influencers of Health Screening 07/04/2024 Influenza Vaccine (Season Ended) 2024 HIB Vaccines [...] age to complete this topic Meningococcal B Vaccine Aged Out No l onger eligible based on patient's age to complete [...]
--- OUTSIDE RECORDS SUMMARY | 2024-07-11 07:55 | XMS_ITS | Encounter Summary ---
Author Organization [facility] Address [address] [id number] Care Team Providers Care Therapy Director Name Role Phone TurnerEmma Gurrola Primary Care Provider [phone] Reason for Visit * Reason Onset Date Comments Peer to Peer Telephone Call 07/06/2024 Encounter Details Date Type Department Care Team (Late st Contact Info) Description 07/06/2024 Telephone [facility] [address] [place] [address] Descriptive Catalog Librarian: Alva Cedeño MD [address] [place] [id number] Peer to Peer Telephone Call Social History Tobacco Use Types Packs/Day Years [...] encounter Miscellaneous Notes * Telephone Encounter - Jacqueline Jeronimo - 07/06/2024 10:[address] Rojelio Sal[address]ero Dr[address] called requesting a Peer to Peer telephone call regarding the request you put thru for Botox for the pt. Please call Dr. Serrato back at [phone] documented in this encounter Plan of Treatment Upcoming Encounters Date Type Department Care Team (Late st Contact Info) Description 07/27/2024 9:15 AM EDT Office Visit [facility] A [address] [place] [address] Ayala Valentine MD [address] [place] [address] 08/24/2024 3:30 PM EDT Appointment [facility] [address] [place] [address]395 Alva Blank MD [address] [place] [address] 49451 Anya Nuno 04/16/2025 12:30 PM EST Appointment [facility] [address] [place] [address] Alva Blank MD [address] [place] [address] 95274 Barber Wray MD [address] [place] [address]708 Lorri Cortez documented as of this encounter Visit Diagnoses Not on filedocumented in this encounter Care Teams Therapy Director Relationship Specialty Start Date End Date Emma Benjamin [address] [place] [address] [place] [address] PCP - General Internal Medicine 02/07/24 documented as of this encounter
--- OUTSIDE RECORDS SUMMARY | 2024-07-11 07:55 | XMS_ITS | Referral Summary ---
Author Organization [facility] Address [address] [place] [address] Care Team Providers Care Photographer Model Name Role Phone Emma Benjamin Primary Care Provider [phone] Encounters Date Type Department Care Team Description 07/09/2024 Telephone [facility] [address] [place] [address]99[address] Alva Blank MD 07/06/2024 Telephone [facility] [address] [place] [address] 37723 Stage Electrician Helper: Alva Cedeño MD Peer to Peer Telephone Call 07/04/2024 myChart Message [facility] [address] [place] [address] 07482 Alva Blank MD Topiramate 07/03/2024 Telephone [facility] [address] [place] [address] 48724 Alva Blank MD 06/18/2024 myChart Message [facility] [address] [place] [address] 11911 Alva Blank MD Botox 06/07/2024 Telephone [facility] [address] [place] [address] 72889 Telephone Intake, Staff PAC Appt Request - Established 06/04/2024 myChart Message [facility] [address] [place] [address] 48074 Alva Blank MD Botox and update 05/28/2024 12:00 PM [facility] Telehealth [facility] [address] [place] [address] 10231 Alva Blank MD Post concussion syndrome (Primary Dx); Chronic post-traumatic headache, not intractable 05/23/2024 Orders Only [facility] [address] [place] [address] 53290 Alva Blank MD 05/15/2024 Zenedyt Message [facility] [address] [place] [address] 08790 Jackson Carter LPN Making appointment 05/15/2024 Orders Only [facility] [address] [place] [address] 90179 Alva Blank MD Post concussion syndrome (Primary Dx) 05/14/2024 Orders Only [facility] [address] [place] [address] 60503 Alva Blank MD 05/14/2024 Telephone [facility] [address] [place] [address] 93374 Telephone Intake, Staff PAC Alva Hauser Patient Request Call Back; PAC Order Request; PAC Appt Request - Established 05/13/2024 Orders Only [facility] [address] [place] [address] 15739 Alva Blank MD Post concussion syndrome (Primary Dx) 05/09/2024 Sykiohart Message [facility] [address] [place] [address] 82260 Alva Blank MD Vestibular therapy 05/09/2024 Telephone [facility] [address] [place] [address] 00156 Alva Blank MD 05/07/2024 Sykiohart Message [facility] [address] [place] [address] Alva Blank MD Work note 05/01/2024 Telephone [facility] [address] [place] [address] Telephone Intake, Staff PAC Appt Request - Established- Alva Blank MD 04/28/2024 Zenedyt Message [facility] [address] [place] [address] Alva Blank MD Biofeedback therapy from Last 3 Months Allergies Active Allergy [...] 30 capsule 2 5 08/08/19 25 Active topiramate (TOPAMAX) 25 mg tablet Start 25 mg nightly for 1 week Increase to 25 mg in the morning and 25 mg at night for 1 week Increase to 25 mg in the morning and 50 mg at night Increase to 50 mg in the morning and 50 mg at night. 120 tablet Active Active Problems Problem Noted Date Diagnosed [...] Description 07/27/2024 9:15 AM EDT Office Visit [facility] A [address] [place] [address] Ayala Valentine MD [address] [place] [address] 08/24/2024 3:30 PM EDT Appointment [facility] [address] [place] [address] 27485 Alva Blank MD [address] [place] [address] Anya Nuno 04/16/2025 12:30 PM EST Appointment [facility] [address] [place] [address] Alva Blank MD [address] [place] [address] Barber Wray MD [address] [place] [address] Lorri Cortez Insurance [facility] Care Teams Photographer Model Relationship Specialty Start Date End Date Emma Benjamin [address] [place] [address] PCP - General Internal Medicine 02/07/24
--- OUTSIDE RECORDS SUMMARY | 2024-07-11 07:55 | XMS_ITS | Encounter Summary ---
Author Organization [facility] Address [address] [place] [address] Care Team Providers Care Record Changer Assembler Name Role Phone Emma Benjamin Primary Care Provider [phone] Encounter Details Date Type Department Care Team (Late st Contact Info) Description 07/04/2024 myChart Message [facility] [address] [place], [place] [phone] Alva Blank MD [address] [place] [address] Topiramate Social History Tobacco Use Types Packs/Day Years [...] Description 07/27/2024 9:15 AM EDT Office Visit [facility] A [address] [place] [address] Ayala Valentine MD [address] [place] [address] 08/24/2024 3:30 PM EDT Appointment [facility] [address] [place] [address] Alva Blank MD [address] [place] [address] Anya Nuno 04/16/2025 12:30 PM EST Appointment [facility] [address] [place] [address] 14323 Alva Blank MD [address] [place] [address] 60347 Barber Wray MD [address] [place] [address] Lorri Cortez documented as of this encounter Visit Diagnoses Not on filedocumented in this encounter Care Teams Record Changer Assembler Relationship Specialty Start Date End Date Emma Benjamin [address] [place] [address] [place] [address] PCP - General Internal Medicine 02/07/24 documented as of this encounter
--- OUTSIDE RECORDS SUMMARY | 2024-07-11 07:55 | XMS_ITS | Clinical Summary ---
Author Organization [facility] Address [address] [place] [address] Care Team Providers Care Network Intelligence Analyst Name Role Phone Emma Benjamin Primary Care Provider [phone] Allergies Active Allergy Reactions Criticality Noted Date [...] Type Department Care Team Description 07/09/[address] [facility] [address] [place] [address] Alva Blank MD 07/06/2024 Telephone [facility] [address] [place] [address] Installer Inspector Final: Alva Cedeño MD Peer to Peer Telephone Call 07/04/[address] VoloMetrixhart [address] [facility] [address] [place] [address] Alva Blank MD Topiramate 07/03/2024 Telephone [facility] [address] [place] [address] 64661 Alva Blank MD 06/18/20[address] VoloMetrixhart [address] [facility] [address] [place] [address] 08366 Alva Blank MD Botox 06/07/[address] [facility] [address] [place] [address] 48596 Telephone Intake, Staff PAC Appt Request - Established 06/04/2024 myChart Message [facility] [address] [place] [address] 18429 Alva Blank MD Botox and update 05/28/2024 12:00 PM [facility] Telehealth [facility] [address] [place] [address] 18219 Alva Blank MD Post concussion syndrome (Primary Dx); Chronic post-traumatic headache, not intractable 05/23/2024 Orders Only [facility] [address] [place] [address] Alva Blank MD 05/15/2024 myChart [address] [facility] [address] [place] [address] 11600 Jackson Carter LPN Making appointment 05/15/2024 Orders Only [facility] [address] [place] [address] 36562 Alva Blank MD Post concussion syndrome (Primary Dx) 05/14/2024 Orders Only [facility] [address] [place] [address] 30602 Alva Blank MD 05/14/[address] [facility] [address] [place] [address] 85788 Telephone Intake, Staff PAC Alva Hauser Patient Request Call Back; PAC Order Request; PAC Appt Request - Established 05/13/2024 Orders Only [facility] [address] [place] [address] 95735 Alva Blank MD Post concussion syndrome (Primary Dx) 05/09/2024 myChart Message [facility] [address] [place] [address] 83733 Alva Blank MD Vestibular therapy 05/09/2024 Telephone [facility] [address] [place] [address] 05747 Alva Blank MD 05/07/2024 myChart Message [facility] [address] [place] [address] 47192 Alva Blank MD Work note 05/01/2024 Telephone [facility] [address] [place] [address] 25571 Telephone Intake, Staff PAC Appt Request - Established- Alva Blank MD 04/28/2024 myChart Message [facility] [address] [place] [address] Alva Blank MD Biofeedback therapy from Last 3 Months Family History Medical [...] Description 07/27/2024 9:15 AM EDT Office Visit [facility] A [address] [place] [address] Ayala Valentine MD [address] [place] [address] 08/24/2024 3:30 PM EDT Appointment [facility] [address] [place] [address] Alva Blank MD [address] [place] [address] 77009 Anya Nuno 04/16/2025 12:30 PM EST Appointment [facility] [address] [place] [address] Alva Blank MD [address] [place] [address]104 Barber Wray MD [address] [place] [address] Lorri Cortez Health Maintenance Due Date Last [...] Vaccine (3 - 2023- season) 12/04/202312/2020, 05/21/2020 Alcohol/Substance Use Screening 04/04/2024 Depression Screening and Follow-Up 04/04/2024 Social Drivers of Health Xiomara ual Screening 04/04/2024 Influenza Vaccine (Season Ended) 2024 DTaP,Tdap,and Td Vaccines (4 - Td or Tdap) 01/23/2032 01/22/2022, 01/13/2016, 11/20/2014 RSV Vaccine (60+ years old a nd patients) (1 - 1-dose 75+ series) 2056 [place] [address] Care Teams Network Intelligence Analyst Relationship Specialty Start Date End Date Emma Benjamin [address] [facility] [place] [address] PCP - General Internal Medicine 02/07/24
--- OUTSIDE RECORDS SUMMARY | 2024-07-11 07:56 | XMS_ITS | Encounter Summary ---
Author Organization [facility] Address [address] [place] [address] Care Team Providers Care Paraoptometric Name Role Phone Emma Benjamin Primary Care Provider [phone] Reason for Visit * Reason Onset Date Comments PAC Appt Request - Established 06/07/2024 Encounter Details Date Type Department Care Team (Late st Contact Info) Description 06/07/2024 Telephone [facility] [address] [place], [place] [phone] Telephone Intake, Staff PAC Appt Request - [...] pt Workmens Comp Best call back number [phone] Thank you documented in this encounter Plan of Treatment Upcoming Encounters Date Type Department Care Team (Late st Contact Info) Description 07/27/2024 9:15 AM EDT Office Visit [facility] A [address] [place] [address] Ayala Valentine MD [address] [place] [address] 08/24/2024 3:30 PM EDT Appointment [facility] [address] [place] [address] 46[address] Alva Blank MD [address] [place] [address] 18477 Anya Nuno 04/16/2025 12:30 PM EST Appointment [facility] [address] [place] [address] 73735 Alva Blank MD [address] [place] [address] 76068 Barber Wray MD [address] [place] [address] 37[address] Lorri Cortez documented as of this encounter Visit Diagnoses Not on filedocumented in this encounter Care Teams Paraoptometric Relationship Specialty Start Date End Date Emma Benjamin [address] [facility] [place] [address] PCP - General Internal Medicine 02/07/24 documented as of this encounter
--- OUTSIDE RECORDS SUMMARY | 2024-07-11 07:56 | XMS_ITS | Encounter Summary ---
Author Organization [facility] Address [address] [place] [address] Care Team Providers Care Stone Derrickman And Rigger Name Role Phone Emma Benjamin Primary Care Provider [phone] Encounter Details Date Type Department Care Team (Late st Contact Info) Description 06/18/2024 myChart Message [facility] [address] [place] [address] Alva Blank MD [address] [place], [place] [phone] Botox Social History Tobacco Use Types Packs/Day [...] Description 07/27/2024 9:15 AM EDT Office Visit [facility] A [address] [place] [address] Ayala Valentine MD [address] [place] [address] 08/24/2024 3:30 PM EDT Appointment [facility] [address] [place] [address] Alva Blank MD [address] [place] [address] Anya Nuno 04/16/2025 12:30 PM EST Appointment [facility] [address] [place] [address] 459[address] Alva Blank MD [address] [place] [address] 29697 Barber Wray MD [address] [place] [address] 82532 Lorri Cortez documented as of this encounter Visit Diagnoses Not on filedocumented in this encounter Care Teams Stone Derrickman And Rigger Relationship Specialty Start Date End Date Emma Benjamin [address] [place] [address] [place] [address] PCP - General Internal Medicine 02/07/24 documented as of this encounter
--- OUTSIDE RECORDS SUMMARY | 2024-07-11 07:56 | XMS_ITS | Clinical Summary ---
Author Organization [facility] Address [address] [place] [address] Care Team Providers Care Central Aisle Cashier Name Role Phone Unknown Primary Care Provider [phone] Allergies Active Allergy Reactions Criticality Noted [...] age to complete this topic Care Teams Central Aisle Cashier Relationship Specialty Start Date End Date Unknown Unknow Provider Address PCP - General 10/15/23
--- NOTE | 2024-07-11 08:01 | MHC.PC.OV ---
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 Required: No Accompanied by: Self / Same As Patient Allergies vancomycin Allergy (Unknown, Verified 07/11/24 08:19) itching thorat and wheezing amitriptyline Adverse Reaction (Intermediate, Verified 07/11/24 08:19) tiredness sumatriptan Adverse Reaction (Intermediate, Verified 07/11/24 08:19) over alert Medication List - Last Reconciled 07/11/24 by Emma Jarvis MD albuterol sulfate 90 mcg/actuation 2 puffs inhalation Q4-6H PRN cholecalciferol (vitamin D3) 25 mcg PO DAILY coenzyme Q10 (Ultra CoQ10) 75 mg PO DAILY cyclobenzaprine 10 mg PO BEDTIME PRN 30 days lorazepam 0.5 mg PO DAILY PRN 30 days magnesium oxide 400 mg PO DAILY 30 days montelukast 10 mg PO DAILY hu-yp-sfiadd complex no.217 (AdvaClear capsule) caps PO omega-3 fatty acids 1,000 mg PO DAILY topiramate mg PO Tobacco use date assessed: 07/11/24 Dental Screening Dental Screen Date: 07/11/24 Did you have a dental visit in the last 12 months?: Yes Did you have a dental problem in the last 6 months where you did not have access to dental care?: No Was dental information given to patient?: Patient has dentist HPI HPI Comments History of Present Illness Details The patient is a 43-year-old female presenting for management of her symptoms following a concussion. She has experienced persistent fatigue and increased headaches exacerbated by her medication regimen, specifically Topiramate, which she started titrating last week for migraine prophylaxis. Despite these interventions, she reported ongoing exhausted states and heightened headache incidences, significantly affecting her daily functions and work capacities. The patient has undergone several consultations including cardiac evaluations, anticipating dysautonomia and POTS diagnosis, characterized by postural changes and autonomic instability. Additionally, cervical spondylosis has been confirmed as mild, with neck discomfort noted more prominently rather than as a primary etiological factor for her symptoms. The patient has been engaging in complementary therapeutic approaches, such as functional medicine and a series of vestibular therapies, with limited relief noted from these interventions. There were no positive findings in recent GI and endocrine evaluations to contribute to her symptoms. [facility] Medical History (Updated 07/11/24 @ 12:11 by Emma Jarvis MD) Moderate persistent asthma, uncomplicated Allergic rhinitis Surgical History Status post surgical removal of both fallopian tubes History of delivery History of esophagogastroduodenoscopy (EGD) History of breast biopsy History of wisdom tooth extraction History of placement of ear tubes History of tonsillectomy and adenoidectomy Family History Father Skin cancer Hypertension CVD (cardiovascular disease) Mother Asthma Hypothyroidism Sister In good health Social History Housing: House Alcohol intake: current Alcohol intake frequency: a few times a week Alcohol type: wine and hard liquor Patient Tobacco Use Status: Never used Tobacco e-Cigarette/Vaping Use: Currently Using Second Hand Smoke Exposure: No service: No Current occupational status: employed Current occupational exposures/hazards: No Cognitive needs: No Hearing needs: No Vision needs: No Female Reproductive History Menstrual Date of last menstrual period: 07/06/24 Questionnaire PHQ-9 Over the last 2 weeks, how often have you been bothered by any of the following problems? 1. Little interest or pleasure in doing things: not at all 2. Feeling down, depressed, or hopeless: not at all 3. Trouble falling or staying asleep, or sleeping too much: not at all 4. Feeling tired or having little energy: not at all 5. Poor appetite or overeating: not at all 6. Feeling bad about yourself - or that you are a failure or have let yourself or your family down: not at all 7. Trouble concentrating on things, such as reading the newspaper or watching television: not at all 8. Moving or speaking so slowly that other people could have noticed. Or the opposite - being so fidgety or restless that you have been moving around a lot more than usual: not at all 9. Thoughts that you would be better off or of hurting yourself in some way: not at all Total score: 0 Depression Screening Interpretation: Negative Depression Screening Done: Yes 10855 - PHQ-9 Billing: Yes Source: Developed by Drs. Tomy Quesada, Clarisa Ly, Jani Osuna and colleagues, with an educational connor from [employer]. Thrive Questionnaire Date Thrive assessed: 07/11/24 I am a: Patient What is your living situation today?: I have a steady place to live Within the past 12 months, did the food you bought not last and you didn't have the money to get more?: Never true Within the past 12 months, did you worry whether your food would run out before you got money to buy more?: Never true Do you have trouble paying for medicines?: No Do you have trouble getting transportation to medical appointments?: No Do you have trouble paying your heating and electricity bill?: No Do you have trouble taking care of your child, family member or friend?: No Do you have trouble with day-to-day activities such as bathing, preparing meals, shopping, managing finances, etc.?: No Are you currently unemployed and looking for a job?: No Are you interested in more education?: No Please select the resources that you would like help with: None Currently or been in a relationship where the following occur: No concerns reported THRIVE Score: 0 AUDIT C Alcohol Use Questionnaire (AUDIT-C) 1. How often do you have a drink containing alcohol?: Never 3. How often do you have six or more drinks on one occasion?: Never Total Score: 0 Score Reviewed/Action Taken: No JENNIFER-7 AMB Questionnaire JENNIFER-7 Date JENNIFER - 7 assessed: 07/11/24 Feeling nervous, anxious, or on edge: 0 = Not at all Not being able to stop or control worryin = Not at all Worrying too much about different things: 0 = Not at all Trouble relaxin = Not at all Being so restless that it is hard to sit still: 0 = Not at all Becoming easily annoyed or irritable: 0 = Not at all Feeling afraid as if something awful might happen: 0 = Not at all Total JENNIFER-7 score (0-4 normal; 5-9 mild; 10-14 moderate; 15-21 severe): 0 Source: Developed by Drs. Tomy Quesada, Clarisa Ly, Jani Osuna and colleagues, with an educational connor from [employer]. JENNIFER-7 Assessment Billing JENNIFER-7 Assessment Tool: JENNIFER-7 Assessment 48210 Review of Systems Const All systems reviewed & are unremarkable except as noted in HPI and below Card Denies chest pain at rest, Denies chest pain with activity, Denies edema, Denies irregular heart rhythm, Denies claudication, Denies dyspnea, Denies dyspnea on exertion, Denies orthopnea, Denies paroxysmal nocturnal dyspnea and Denies slow heart rate Resp Denies cough, Denies dyspnea and Denies dyspnea on exertion GI Denies abdominal pain, Denies change in bowel habits, Denies excessive flatus, Denies nausea and Denies vomiting Neuro Denies confusion Psych Denies confusion Physical exam (Primary Care) Vital Signs: Last Vital Signs Temp 97.3 F 07/11/24 08:02 Pulse 95 07/11/24 08:02 Resp 20 07/11/24 08:02 BP 114/74 07/11/24 08:02 Pulse Ox 99 07/11/24 08:02 Oxygen Delivery Method Room Air 07/11/24 08:02 BMI result Body Mass Index 20.7 Tobacco/Smoking Status: Tobacco use Status Tobacco use date assessed 07/11/24 07/11/24 08:09 Patient Tobacco Use Status Never used Tobacco 07/11/24 08:09 e-Cigarette/Vaping Use Currently Using 07/11/24 08:09 PHQ-9: PHQ-9 Score PHQ-9: Total score 0 07/11/24 10:32 Depression Screening Interpretation: Negative Thrive Assessment: Date of Thrive Assessment Date Thrive assessed 07/11/24 07/11/24 08:09 Currently or been in a relationship where the following occur: No concerns reported Const General: No confusion Orientation/consciousness: No confusion Resp Effort & Inspection: normal respiratory effort Auscultation: clear to auscultation bilaterally Cardio Jugular venous distension: no JVD Rate: regular rate Rhythm: regular rhythm Heart sounds: S1 normal heart sound present and S2 normal heart sound present Neuro General: No confusion Extrem General: Yes full ROM Coding Level of Care Code Est Pt Level 4 (47644) Complex EM visit Add On G2211 Diagnoses Neck pain M54.2 Persistent headaches R51.9 Dysautonomia G90.1 Abnormal EKG R94.31 Additional Codes JENNIFER-7 Assessment Billing - JENNIFER-7 Assessment Tool: JENNIFER-7 Assessment 44696 ([id number]) PHQ-9 - 74365 - PHQ-9 Billing: Yes ([id number]) Time Spent (min) 23 Assessment & Plan Assessment & Plan (1) Neck pain: Code(s): M54.2 - Cervicalgia Category: Medical (2) Persistent headaches: Code(s): R51.9 - Headache, unspecified Category: Medical (3) Dysautonomia: Code(s): G90.1 - Familial dysautonomia [Lam-Day] Category: Medical (4) Abnormal EKG: Code(s): R94.31 - Abnormal electrocardiogram [ECG] [EKG] Category: Medical (5) Dysautonomia: Code(s): G90.1 - Familial dysautonomia [Lam-Day] Category: Medical Plan Management entails strategic titration of migraine prophylaxis with Topiramate, prioritizing nighttime dosing to mitigate daytime drowsiness. Further autonomic testing is imperative to elucidate POTS severity, directing any necessary interventions post-results. Amelioration of neck pain through muscle relaxants may proceed with an added trial of Celecoxib, balancing pharmacologic inputs while safeguarding functionality and minimizing adverse outcomes. Blmbjn-fh-ndip protocols align with medical guidance for optimal outcome, maintaining flexibility per health status evolution. Patient was informed and verbally consented to the use of an ambient scribe for clinic note documentation during this visit. I discussed with the patient the continuation of Topiramate at bedtime to assess its impact on her symptoms and emphasized the importance of sleep and overall rest in ameliorating her post-concussion symptoms and headaches. We addressed her concerns regarding autonomic dysfunction, with plans set for further evaluations including tilt table testing. Alternatives like Celecoxib were suggested for her neck discomfort considering lesser gastrointestinal adverse effects compared with NSAIDs. We reviewed auxjva-xa-xxlg strategies, stressing adjustment based on her physical and cognitive capability. I advised on the risks versus benefits concerning Lorazepam and Flexeril's use, emphasizing enhanced awareness of potential side effects, including memory concerns with benzodiazepines. Medications: New celecoxib 100 mg PO BID PRN 14 caps 0RF pain 7 days Patient Instructions: - Take Topiramate at bedtime to minimize daytime fatigue. - Engage in any planned testing, such as tilt table and cardiac evaluations. - Use Flexeril as needed, be cautious of sedation effects. - If neck pain persists, try Celecoxib for up to seven days as directed. - Trial work adjustments, maintaining flexibility for health-driven pacing. - Prioritize rest and sleep quality to support post-concussion recovery. - Monitor response to treatment, prepare to adjust based on effectiveness and tolerance.
[2024-07-11 08:02] VITALS: BP 114/74; PULSE 95; RESP 20; TEMP 36.3; O2SAT 99; BMI 20.7
== END 2024-07-11 08:38 | disposition home or self-care (01) ==
LOC: HO.HMCH 07:53
PROVIDERS: PCP Internal Medicine; Visit Provider Internal Medicine
DX: M54.2 Cervicalgia (principal); R51.9 Headache, unspecified; G90.1 Familial dysautonomia [Riley-Day]; R94.31 Abnormal electrocardiogram [ECG] [EKG]

== ENCOUNTER → 2024-07-11 07:52 | Outpatient (BNVA) | payer OTHER, SELFPAY | PROVIDERS: PCP Internal Medicine; Visit Provider Internal Medicine | DX: R51.9 Headache, unspecified (principal); M54.2 Cervicalgia; G90.1 Familial dysautonomia [Riley-Day]; R94.31 Abnormal electrocardiogram [ECG] [EKG] | CPT/HCPCS: 96127; 99212 ==

== ENCOUNTER → 2024-07-26 14:51 | Outpatient (REF) | payer OTHER, SELFPAY ==
--- NOTE | 2024-07-26 14:54 | HM_ITS ---
* Total monitoring time 7 days. * Underlying rhythm is sinus with an average rate of 87/Min. * Rare supraventricular ectopy. * Rare ventricular ectopy. * No significant pauses or high-grade AV blocks. * Patient markers used with sinus rhythm. * Dizziness, double vision, wierd feeling in chest, in patient diary associated with sinus rhythm. Headache, vision changes associated with sinus tachycardia. MTDD
--- OUTSIDE RECORDS SUMMARY | 2024-07-26 17:34 | XMS_ITS | Clinical Summary ---
Author Organization [facility] Address [address] [place] [address] Phone Care Team Providers Care Coroner Forensic Technician Name Role Phone Unavailable Primary Care [...] Upcoming Encounters Date Type Department Care Team ([facility] st Contact Info) Description 08/14/2024 1:00 PM EDT Appointment [facility] Xray [address] [place] [address] Health Maintenance Due Date Last [...] on patient's age to complete this topic Insurance [facility] [id number]
--- OUTSIDE RECORDS SUMMARY | 2024-07-26 17:34 | XMS_ITS | Clinical Summary ---
Author Organization [facility] Address [address] [place] [address] Care Team Providers Care Digital Print Operator Name Role Phone Emma Benjamin Primary Care Provider [phone] Allergies Active Allergy Reactions Criticality Noted Date [...] Encounters Date Type Department Care Team Description 07/25/2024 Telephone [facility] A [address] [place] [address] Telephone Intake, Staff PAC Prior Auth (Add. Info Required) - Sheen 07/09/2024 Telephone [facility] [address] [place] [address] Alva Blank MD 07/06/2024 Telephone [facility] [address] [place] [address] [phone] Garment Parts Cutter Machine: Alva Cedeño MD Peer to Peer Telephone Call 07/04/2024 myChart Message [facility] [address] [place] [phone] Alva Blank MD Topiramate 07/03/2024 Telephone [facility] Neurodiagnostics [address] [place] [address] [phone] Alva Blank MD 06/18/2024 myChart Message [facility] [address] [place] [address] [phone] Alva Blank MD Botox 06/07/2024 Telephone [facility] [address] [place] [address] [phone] Telephone Intake, Staff PAC Appt Request - Established 06/04/2024 myChart Message [facility] [address] [place] [address] [phone] Alva Blank MD Botox and update 05/28/2024 12:00 PM [facility] Telehealth [facility] [address] [place] [phone] Alva Blank MD Post concussion syndrome (Primary Dx); Chronic post-traumatic headache, not intractable 05/23/2024 Orders Only [facility] [address] [place] [phone] Alva Blank MD 05/15/2024 myChart Message [facility] [address] [place] [address] [phone] Jackson Carter LPN Making appointment 05/15/2024 Orders Only [facility] [address] [place] [address] [phone] Alva Blank MD Post concussion syndrome (Primary Dx) 05/14/2024 Orders Only [facility] [address] [place] [address] [phone] Alva Blank MD 05/14/2024 Telephone [facility] [address] [place] [address] 11262 Telephone Intake, Staff PAC Alva Hauser Patient Request Call Back; PAC Order Request; PAC Appt Request - Established 05/13/2024 Orders Only [facility] [address] [place] [address] [phone] Alva Blank MD Post concussion syndrome (Primary Dx) 05/09/2024 myChart Message [facility] [address] [place] [address] [phone] Alva Blank MD Vestibular therapy 05/09/2024 Telephone [facility] [address] [place] [address] [phone] Alva Blank MD 05/07/2024 myChart Message [facility] [address] [place] [address] [phone] Alva Blank MD Work note 05/01/2024 Telephone [facility] [address] [place] [address] Telephone Intake, Staff PAC Appt Request - Established- Alva Blank MD 04/28/2024 myChart Message [facility] [address] [place] [address] Alva Blank MD Biofeedback therapy from Last [...] Description 07/27/2024 9:15 AM EDT Office Visit [facility] A [address] [place] [phone] Ayala Valentine MD [address] [place] [phone] 08/24/2024 3:30 PM EDT Appointment [facility] [address] [place] [phone] Alva Blank MD [address] [place] [phone] 04/16/2025 12:30 PM EST Appointment [facility] [address] [place] [phone] Alva Blank MD [address] [place] [phone] Barber Wray MD [address] [place] [phone] Lorri Cortez Health Maintenance Due Date Last [...] 2000 Mammogram 2021 COVID-19 Vaccine (3 - 2024-25 season) 12/04/202312/2020, 05/21/2020 Alcohol/Substance Use Screening 04/04/2024 Depression Screening and Follow-Up 04/04/2024 Social Drivers of Health Xiomara ual Screening 04/04/2024 Influenza Vaccine (Season Ended) 2024 DTaP,Tdap,and Td Vaccines (4 - Td or Tdap) 01/23/2032 01/22/2022, 01/13/2016, 11/20/2014 RSV Vaccine (60+ years old a nd patients) (1 - 1-dose 75+ series) [address] [place] [id number] [place] [id number] Care Teams Digital Print Operator Relationship Specialty Start Date End Date Emma Benjamin [address] [facility] [place] [address] PCP - General Internal Medicine 02/07/24
--- OUTSIDE RECORDS SUMMARY | 2024-07-26 17:35 | XMS_ITS | Clinical Summary ---
Author Organization [facility] Address [address] [place] [address] Care Team Providers Care Machine Zipper Trimmer Name Role Phone Unknown Primary Care Provider [phone] Allergies Active Allergy Reactions Criticality Noted Date Comments Vancomycin GI Intolerance/Nausea/Vomiting Low 10/14 Medications montelukast (SINGULAIR) 10 MG tablet Take 10 mg by mouth nightly. Active ibuprofen (MOTRIN) 600 MG tabletIndications:C oncussion without loss of consciousness, initial encounter Take 1 tablet (600 mg total) by mouth 4 times daily (every 6 hours) as needed for mild pain. 30 tablet 4 Active ondansetron (ZOFRAN-ODT) 4 MG disintegrating tabletIndications:C oncussion without loss of consciousness, initial encounter Take 1 tablet (4 mg total) by mouth 3 times daily (every 8 hours) as needed for nausea or vomiting. Place tablet on tongue to dissolve. 20 tablet 4 Active cyclobenzaprine (FLEXERIL) 10 MG tabletIndications:C oncussion without loss of consciousness, initial encounter Take 1 tablet (10 mg total) by mouth 3 times daily (every 8 hours) as needed for muscle spasms. 30 tablet 4 Active Active Problems No known active problems Social History Tobacco Use Types Packs/Day Years Used Date Smoking Tobacco: Never Assessed Comments Unknown Sex and Gender Information Value Date Recorded Sex Assigned at Not on file Legal Sex Female 6:14 PM EDT Gender Identity Not on file [...] patient's age to complete this [place] [id number] [facility] [employer] Care Teams Machine Zipper Trimmer Relationship Specialty Start Date End Date Unknown Unknow Provider Address PCP - General 10/15/23
--- OUTSIDE RECORDS SUMMARY | 2024-07-26 17:35 | XMS_ITS | Referral Summary ---
Author Organization [facility] Address [address] [place] [address] Care Team Providers Care Clinical Review Nurse Name Role Phone Emma Benjamin Primary Care Provider [phone] Encounters Date Type Department Care Team Description 07/25/2024 Telephone [facility] A [address] [place] [address] Telephone Intake, Staff PAC Prior Auth (Add. Info Required) - Annmarieen 07/09/2024 Telephone [facility] [address] [place] [phone] Alva Blank MD 07/06/2024 Telephone [facility] [address] [place] [address] [phone] Second Steward: Alva Cedeño MD Peer to Peer Telephone Call 07/04/2024 myChart Message [facility] [address] [place] [address] [phone] Alva Blank MD Topiramate 07/03/2024 Telephone [facility] [address] [place] [address] [phone] Alva Blank MD 06/18/2024 Locqushart Message [facility] [address] [place] [address] 64047 Alva Blank MD Botox 06/07/2024 Telephone [facility] [address] [place] [address] [phone] Telephone Intake, Staff PAC Appt Request - Established 06/04/2024 myChart Message [facility] [address] [place] [address] [phone] Alva Blank MD Botox and update 05/28/2024 12:00 PM [facility] Telehealth [facility] [address] [place] [address] 11931 Alva Blank MD Post concussion syndrome (Primary Dx); Chronic post-traumatic headache, not intractable 05/23/2024 Orders Only [facility] [address] [place] [address] [phone] Alva Blank MD 05/15/2024 Locqushart Message [facility] [address] [place] [address] [phone] Jackson Carter LPN Making appointment 05/15/2024 Orders Only [facility] [address] [place] [address] [phone] Alva Blank MD Post concussion syndrome (Primary Dx) 05/14/2024 Orders Only [facility] [address] [place] [address] [phone] Alva Blank MD 05/14/2024 Telephone [facility] [address] [place] [address] [phone] Telephone Intake, Staff PAC Alva Hauser Patient Request Call Back; PAC Order Request; PAC Appt Request - Established 05/13/2024 Orders Only [facility] [address] [place] [address] [phone] Alva Blank MD Post concussion syndrome (Primary Dx) 05/09/2024 myChart Message [facility] [address] [place] [address] [phone] Alva Blank MD Vestibular therapy 05/09/2024 Telephone [facility] [address] [place] [address] Alva Blank MD 05/07/2024 myChart Message [facility] [address] [place] [address] Alva Blank MD Work note 05/01/2024 Telephone [facility] [address] [place] [address] Telephone Intake, Staff PAC Appt Request - Established- Alva Blank MD 04/28/2024 Locqushart Message [facility] [address] [place] [address] [phone] Alva Blank MD Biofeedback therapy from Last [...] Description 07/27/2024 9:15 AM EDT Office Visit [facility] A [address] [place] [phone] Ayala Valentine MD [address] [place] [address] 47269 08/24/2024 3:30 PM EDT Appointment [facility] [address] [place] [address] Alva Blank MD [address] [place] [address] 04/16/2025 12:30 PM EST Appointment [facility] [address] [place] [address] Alva Blank MD [address] [place] [phone] Barber Wray MD [address] [place] [address] Lorri Cortez Insurance [facility] Care Teams Clinical Review Nurse Relationship Specialty Start Date End Date Emma Benjamin [address] [place] [address] [place] [address] PCP - General Internal Medicine 02/07/24
--- OUTSIDE RECORDS SUMMARY | 2024-07-26 17:35 | XMS_ITS | Encounter Summary ---
Author Organization [facility] Address [address] [id number] Care Team Providers Care Equity Director Name Role Phone JobstownEmma Gurrola Primary Care Provider [phone] Reason for Visit * Reason Onset Date Comments Peer to Peer Telephone Call 07/06/2024 Encounter Details Date Type Department Care Team (Late st Contact Info) Description 07/06/2024 Telephone [facility] [address] [place] [address] Director Of Operations Home Health: Alva Cedeño MD [address] [place] [address] Peer to Peer Telephone Call Social History [...] pt. Please call Dr. Serrato back at [phone] documented in this encounter Plan of Treatment Upcoming Encounters Date Type Department Care Team (Late st Contact Info) Description 07/27/2024 9:15 AM EDT Office Visit [facility] A [address] [place] [address] 5[address] Ayala Valentine MD [address] [place] [address] 311[address] 08/24/2024 3:30 PM EDT Appointment [facility] [address] [place] [address] 61279 Alva Blank MD [address] [place] [address] 395[address] 04/16/2025 12:30 PM EST Appointment [facility] [address] [place] [address] 80876 Alva Blank MD [address] [place] [address] 81638 Barber Wray MD [address] [place] [address] 30100 Lorri Cortez documented as of this encounter Visit Diagnoses Not on filedocumented in this encounter Care Teams Equity Director Relationship Specialty Start Date End Date Emma Benjamin [address] [place] [address] [place] [address] PCP - General Internal Medicine 02/07/24 documented as of this encounter
--- OUTSIDE RECORDS SUMMARY | 2024-07-26 17:35 | XMS_ITS | Encounter Summary ---
Author Organization [facility] Address [address] [place] [address] Care Team Providers Care Diet Attendant Name Role Phone Emma Benjamin Primary Care Provider [phone] Reason for Visit * Reason Onset Date Comments PAC Prior Auth (Add. Info Required) Brianna Valentine 07/04 Encounter Details Date Type Department Care Team (Late st Contact Info) Description 07/25/2024 Telephone [facility] [address] [place] [address] Telephone Intake, Staff PAC Prior Auth (Add. Info Required) - Meme Social History Tobacco Use Types Packs/Day Years [...] encounter Miscellaneous Notes * Telephone Encounter - Akira Cash - 07/25/2024 1:52 PM EDT Left pt a detailed vm * Telephone Encounter - Teena Ibrahim - 07/25/2024 1:04 PM EDT Pt is calling to see if she got a prior authorization from to have an injection with Dr Valentine. Please call back at [phone] documented in this encounter Plan of Treatment Upcoming Encounters Date Type Department Care Team (Late st Contact Info) Description 07/27/2024 9:15 AM EDT Office Visit [facility] A [address] [place] [address]121 Ayala Valentine MD [address] [place] [address] 99581 08/24/2024 3:30 PM EDT Appointment [facility] [address] [place] [address] 35504 Alva Blank MD [address] [place] [address] 0[address] 04/16/2025 12:30 PM EST Appointment [facility] [address] [place] [address] 32050 Alva Blank MD [address] [place] [address] 17320 Barber Wray MD [address] [place] [address] 733[address] Lorri Cortez documented as of this encounter Visit Diagnoses Not on filedocumented in this encounter Care Teams Diet Attendant Relationship Specialty Start Date End Date Emma Benjamin [address] [place] [address] [place] [address] PCP - General Internal Medicine 02/07/24 documented as of this encounter
--- OUTSIDE RECORDS SUMMARY | 2024-07-26 17:35 | XMS_ITS | Encounter Summary ---
Author Organization [facility] Address [address] [place] [address] Care Team Providers Care Art Educator Name Role Phone Emma Benjamin Primary Care Provider [phone] Encounter Details Date Type Department Care Team (Late st Contact Info) Description 07/04/2024 myChart Message [facility] [address] [place], [place] [phone] Alva Blank MD [address] [place] [address] Topiramate Social History Tobacco Use Types Packs/Day [...] Description 07/27/2024 9:15 AM EDT Office Visit [facility] A [address] [place] [address] Ayala Valentine MD [address] [place] [address] 08/24/2024 3:30 PM EDT Appointment [facility] [address] [place] [address] Alva Blank MD [address] [place] [address] 04/16/2025 12:30 PM EST Appointment [facility] [address] [place] [address] Alva Blank MD [address] [place] [address] 02724 Barber Wray MD [address] [place] [address] [phone] Lorri Cortez documented as of this encounter Visit Diagnoses Not on filedocumented in this encounter Care Teams Art Educator Relationship Specialty Start Date End Date Emma Benjamin [address] [place] [address] [place] [address] PCP - General Internal Medicine 02/07/24 documented as of this encounter
--- OUTSIDE RECORDS SUMMARY | 2024-07-26 17:35 | XMS_ITS | Encounter Summary ---
Author Organization [facility] Address [address] [place] [address] Care Team Providers Care Feeder/Folder Name Role Phone Emma Benjamin Primary Care Provider Encounter Details Date Type Department Care Team (Late st Contact Info) Description 07/09/2024 Telephone [facility] [address] [place], [place] [phone] Alva Blank MD [address] [place] [address] [phone] Social History Tobacco Use Types Packs/Day Years [...] Description 07/27/2024 9:15 AM EDT Office Visit [facility] A [address] [place] [address] Ayala Valentine MD [address] [place] [address] 08/24/2024 3:30 PM EDT Appointment [facility] [address] [place] [address] 8[address] Alva Blank MD [address] [place] [address] 179[address] 04/16/2025 12:30 PM EST Appointment [facility] [address] [place] [address]55[address] Alva Blank MD [address] [place] [address] 29224 Barber Wray MD [address] [place] [address] 45[address] Lorri Cortez documented as of this encounter Visit Diagnoses Not on filedocumented in this encounter Care Teams Feeder/Folder Relationship Specialty Start Date End Date Emma Benjamin [address] [place] [address] [place] [address] PCP - General Internal Medicine 02/07/24 documented as of this encounter
== END ==
LOC: HO.CARD 14:51
PROVIDERS: PCP Internal Medicine; Visit Provider Internal Medicine Cardiovascular Disease
DX: R00.0 Tachycardia, unspecified (principal); I49.3 Ventricular premature depolarization
CPT/HCPCS: 93242

== ENCOUNTER → 2024-07-26 14:54 | Outpatient (BNV) | payer OTHER, SELFPAY | PROVIDERS: PCP Internal Medicine; Visit Provider Internal Medicine | DX: I47.10 Supraventricular tachycardia, unspecified (principal) | CPT/HCPCS: 93244 ==

== ENCOUNTER → 2024-08-21 12:54 | Outpatient (REF) | payer OTHER, SELFPAY ==
--- NOTE | 2024-08-21 12:58 | CA_ITS ---
Transthoracic Echocardiogram Patient (Last, First, Middle): Nelly Tucker R Gender: Female Date of : 1980 Age: 43 Procedure Date: 08/21/2024 Procedure Type: Transthoracic Echocardiogram Location: OP Height: 162.56 cm Weight: 54.43 kg BSA: 1.57 m2 Heart Rate: 77 bpm BP: 105 / 70 mmHg Bar Staff: FELICITA Referring MD: Tl Franco MD Symptoms: R94.31 - Abnormal electrocardiogram [ECG] [EKG] Study Quality: Adequate ECG Rhythm: Sinus Conclusions: - The left ventricular systolic function is normal. The calculated ejection fraction is 60% by biplane method. - No obvious valvular pathology seen on this study. Findings Left Ventricle Normal left ventricular cavity size. There is normal left ventricular wall thickness. The left ventricular systolic function is normal. The calculated ejection fraction is 60% by biplane method. There is no evidence of regional wall motion abnormalities. Diastolic function is normal for age. Right Ventricle Normal right ventricular cavity size and systolic function. Atria Both atria are normal in size. Aortic Valve There is a normal trileaflet aortic valve. There is no aortic valve stenosis. There is no aortic valve regurgitation. Mitral Valve The mitral valve appears normal. There is no mitral valve regurgitation. There is no mitral valve stenosis. Pulmonic Valve The pulmonic valve is likely normal. Tricuspid Valve There is trace tricuspid valve regurgitation. There is no evidence of pulmonary hypertension. Great Vessels The aorta was not well visualized. The sinuses of valsalva and aortic arch are normal in size. Venous The inferior vena cava is normal in size and collapses greater than 50% with inspiration. Pericardium/Pleural There is no evidence of pericardial effusion. Prior Study Comparison No prior study available for comparison. Recommendations, Care & Conclusions No obvious valvular pathology seen on this study. Measurements 2D Linear Measurements IVSd: 0.58 0.6-0.9/0.6-1.0 cm LVIDd: 4.57 3.9-5.3/4.2-5.9 cm LVIDd Index: 2.91 2.4-3.2/2.2-3.1 cm/m2 LVIDs: 2.29 2.0-3.6 cm LVPWd: 0.69 0.7-1.1 cm LA Diam: 2.90 2.7-3.8/3.0-4.0 cm LAIDs Index: 1.85 1.5-2.3 cm/m2 LV Mass: 107.03 67-162/88-224 g LV Mass Index: 68.17 43-95/49-115 g/m2 LVOT Diam: 2.00 3.0+(-)1.3 cm 2D Systolic Function EF 4C: 56.90 >55% EF 2C: 63.70 >55% EF BiP: 60.00 >55% Mitral Valve MV Pk E: 0.61 MV PK A: 0.64 MV Decel Time: 248.00 E/A: 1.00 E'Lateral: 15.40 E'Medial: 9.03 E/E' Med: 6.70 E/E' Lat: 3.90 PHT: 73.00 MVA PHT: 3.01 Decel Sargent: 2.45 Aortic Valve AoV Pk Daljit: 1.21 AoV Mn Daljit: 0.96 AoV VTI: 0.22 AoV Pk Grad: 6.00 Aov Mn Grad: 4.00 KRYSTLE Cont.VTI: 2.32 LVOT LVOT Pk Daljit: 0.95 LVOT Mn Daljit: 0.65 LVOT VTI: 0.16 LVOT Pk Grad: 4.00 LVOT Mn Grad: 2.00 LVOT Diam: 2.00 LVOT Area: 3.14 Diastolic Function MV Pk E: 0.61 MV Pk A: 0.64 E/A: 1.00 E'Medial: 9.03 E/E' Med: 6.70 E' Laterial: 15.40 E/E' Lat: 3.90 Right Ventricle TAPSE (mm): 24.30 TVS' Daljit: 14.60 Tricuspid Valve TR Pk Daljit: 1.39 TR Pk Grad: 8.00 RA Press: 3.00 RVSP: 11.00 Great Vessels Aorta Sinus of Valsalva: 3.20 2.0-3.5 cm Ao Asc: 3.30 2.1-3.4 cm Ao Arch: 2.20 Pulmonary Valve PV Pk Daljit: 0.87 Peak PV Grad: 3.00 Updated in Other Vendor System with Status of Final Alessandro Nelson MD electronically signed on 08/21/2024 3:44:51 PM with status of Final
--- OUTSIDE RECORDS SUMMARY | 2024-08-21 13:58 | XMS_ITS | Referral Summary ---
Author Organization [facility] Address [address] [place] [address] Care Team Providers Care Cash Applications Coordinator Name Role Phone Emma Benjamin Primary Care Provider [phone] Encounters Date Type Department Care Team Description 07/27/2024 9:15 AM EDT Office Visit [facility] A [address] [place] [address] 77625 Ayala Valentine MD Post concussive syndrome (Primary Dx) 07/25/2024 Telephone [facility] A [address] [place] [address] 10771 Telephone Intake, Staff PAC Prior Auth (Add. Info Required) - Meme 07/09/2024 Telephone [facility] [address] [place] [address]88 Alva Blank MD 07/06/2024 Telephone [facility] [address] [place] [address] 21646 Tuckpointer: Alva Cedeño MD Peer to Peer Telephone Call 07/04/2024 [email or web address] Message [facility] [address] [place] [address] 28470 Alva Blank MD Topiramate 07/03/2024 Telephone [facility] [address] [place] [address] 91754 Alva Blank MD 06/18/2024 myChart Message [facility] [address] [place] [address] Alva Blank MD Botox 06/07/2024 Telephone [facility] [address] [place] [address] 85417 Telephone Intake, Staff PAC Appt Request - Established 06/04/2024 iStoryTimehart Message [facility] Neurology [address] [address] Alva Blank MD Botox and update 05/28/2024 12:00 PM [facility] Telehealth [facility] [address] [place] [address] 30041 Alva Blank MD Post concussion syndrome (Primary Dx); Chronic post-traumatic headache, not intractable from Last 3 Months Allergies Active Allergy [...] total) by mouth nightly. 30 capsule 2 Active topiramate (TOPAMAX) 25 mg tablet Start [...] Care Team (Late st Contact Info) Description 08/24/2024 3:30 PM EDT Appointment [facility] [address] [place], [place] [phone] Alva Blank MD [address] [place] [address] Pawan Wild RT(R) 04/16/2025 12:30 PM EST Appointment [facility] [address] [place] [address] Alva Blank MD [address] [place] [address] Barber Wray MD [address] [place] [address] Lorri Cortez Insurance [facility] Care Teams Cash Applications Coordinator Relationship Specialty Start Date End Date Emma Benjamin [address] [place] [address] [place] [id number] PCP - General Internal Medicine 02/07/24
--- OUTSIDE RECORDS SUMMARY | 2024-08-21 13:58 | XMS_ITS | Clinical Summary ---
Author Organization [facility] Address [address] [place] [address] Care Team Providers Care Package Dyer Name Role Phone Emma Benjamin Primary Care Provider [phone] Allergies Active Allergy Reactions Criticality Noted Date [...] by mouth nightly. 30 capsule 2 5 Active topiramate (TOPAMAX) 25 mg tablet Start [...] Description 07/27/2024 9:15 AM EDT Office Visit [facility] A [address] [place] [address] Ayala Valentine MD Post concussive syndrome (Primary Dx) 07/25/2024 Telephone [facility] A [address] [place] [address] Telephone Intake, Staff PAC Prior Auth (Add. Info Required) - Meme 07/09/2024 Telephone [facility] [address] [place] [address] Alva Blank MD 07/06/2024 Telephone [facility] Sclerosis [facility] [address] [place] [address] Housing Officer: Alva Cedeño MD Peer to Peer Telephone Call 07/04/2024 Ararat Message [facility] [address] [place] [address] 84221 Alva Blank MD Topiramate 07/03/2024 Telephone [facility] [address] [place] [address] 87125 Alva Blank MD 06/18/2024 myChart Message [facility] [address] [place] [address] Alva Blank MD Botox 06/07/2024 Telephone [facility] [address] [place] [address] 59174 Telephone Intake, Staff PAC Appt Request - Established 06/04/2024 myChart Message [facility] [address] [place] [address] Alva Blank MD Botox and update 05/28/2024 12:00 PM EST Telehealth [facility]rology Clinic [address] [place] [address] Alva Blank MD Post concussion syndrome (Primary Dx); Chronic post-traumatic headache, not intractable from Last 3 Months Family History Medical [...] Info) Description 08/24/2024 3:30 PM EDT Appointment [facility] [address] [place] [address] 8[address]01 Alva Blank MD [address] [place] [address]136 Pawan Wild RT(R) 04/16/2025 12:30 PM EST Appointment [facility] [address] [place] [address] 15234 Alva Blank MD [address] [place] [address] 20999 Barber Wray MD [address] [place] [address] Lorri Cortez Health Maintenance Due Date Last [...] Vaccine ( - 2023- season) 12/04/202312/2020, 05/21/2020 Alcohol/Substance Use Screening 04/04/2024 Depression Screening and Follow-Up 04/04/2024 Social Drivers of Health Xiomara ual Screening 04/04/2024 Influenza Vaccine (Season Ended) 2024 DTaP,Tdap,and Td Vaccines (4 - Td or Tdap) 01/23/2032 01/22/2022, 01/13/2016, 11/20/2014 RSV Vaccine (60+ years old a nd patients) (1 - 1-dose 75+ series) 2056 Insurance [facility] Care Teams Package Dyer Relationship Specialty Start Date End Date Emma Benjamin [address] [facility] [place] [address] PCP - General Internal Medicine 02/07/24
--- OUTSIDE RECORDS SUMMARY | 2024-08-21 13:59 | XMS_ITS | Clinical Summary ---
Author Organization [facility] Address [address] [place] [address] Care Team Providers Care County Library Director Name Role Phone Unknown Primary Care Provider [...] Pap Smear (Ages 21-65) 2002 Mammogram 2021 COVID-19 Vaccine ( - 2023-2 5 season) 2023 Influenza Vaccine 11/02/2024 HPV Vaccines Aged Out No longer eligi ble based on patient's age to complete this topic Pneumococcal Vaccine: Pediat cristiano (0-5 Years) and At-Risk Patients (6 to 49 Years) Aged Out No longer eligible b ased on patient's age to [place] [id number] [facility] [employer] Care Teams County Library Director Relationship Specialty Start Date End Date Unknown Unknow Provider Address PCP - General 10/15/23
--- OUTSIDE RECORDS SUMMARY | 2024-08-21 13:59 | XMS_ITS | Clinical Summary ---
Author Organization [facility] Address [address] [place] [address] Phone Care Team Providers Care Drapery Sewer Hand Name Role Phone Physician, No Pcp Primary Care Provider Unavaila ble Encounters Date Type Department Care Team Description 08/14/2024 12:27 PM EDT - 08/14/2024 11:59 PM EDT Hospital Encounter [facility] X[facility] [address] [place] [address] Light headed Discharge Disposition: Home or Self Care from Last 3 Months Social History Tobacco Use Types Packs/Day Years Used Date Smoking Tobacco: Never Assessed Comments Unknown Sex and Gender Information Value Date Recorded Sex Assigned at Not on file Legal Sex Female 1:30 PM EDT Gender Identity Not on file Sexual Orientation Not on file Plan of Treatment Health Maintenance Due Date Last Done Comments Breast Cancer Screening 1980 Hepatitis B Vaccines (1 of 3 - 19+ 3-dose series) 2000 Cervical Cancer Screening: P ap Smear 2002 COVID-19 Vaccine ( - 2023-2 5 season) 2023 06/10/2020, 05/21/2020 Depression Screening 07/04/2024 HIV Screening 07/04/2024 Hepatitis C Screening 07/04/2024 Social Influencers of Health Screening 07/04/2024 Influenza Vaccine (Season Ended) 2024 DTaP,Tdap,and Td Vaccines (4 - Td or Tdap) 01/23/2032 01/22/2022, 01/13/2016, 11/20/2014 HIB Vaccines Aged Out No longer eligi [...] age to complete this topic Pneumococcal Vaccine: Pediatrics (0 to 5 Years) and At-Risk Patients (6 to 64 Years) Aged Out No longer eligible b ased on patient's age to complete this topic RSV Immunization Patients Under 20 months Aged Out No longer eligible b ased on patient's age to complete this topic Varicella Vaccines Aged Out No longer eligible based on patient's age to complete this topic Procedures Procedure Name Priority Date/Time Associated Diagnosis Comments TILT TABLE Routine 08/14/2024 12:56 PM EDT Light headed from Last 3 Months Results * Tilt table (08/14/2024 12:56 PM EDT) Anatomical Region Laterality Modality Radiographic Keysha ging Narrative 08/14/2024 1:43 PM EDT Symptom reproduction today with exaggerated HR . Pt drinks close to 1 gal of fluid daily and feels she eats a lot of salt. ??I have recommended to increase sodium intake further. I gave her 500cc IVNS. Her HR did not significantly increase with position change. BP very briefly dipped into the 80's when ??going from lying to sitting without significant symptoms. POTS Tilt Table The patient was brought to lab in fasting state. Patient lied supine for 5 minutes for equilibrium. Baseline ECG showed normal sinus rhythm. Baseline supine minimum BP: 128/68 mmHg Baseline supine minimum HR: 93 bpm Patient tilted to 70 degrees. Tilt maintained for 20 minutes. Minimum BP during tilt: 96/71 mmHg Maximum BP during tilt: 143/96 mmHg Minimum heart rate during tilt: 93 bpm Maximum heart rate during tilt: 121 bpm Rhythm during tilt: sinus tachycardia There was a clear orthostatic response noted. Patient experienced an exaggerated HR increase with tilt. Symptoms seen on tilt include: light headedness and blurred vision and shakiness. Premonitory symptoms were reproduced. Conclusion: Abnormal tilt test with findings consistant with dysautonomia. Tl Franco MD [facility] PROCEDURES F inal Result from Last 3 Months Insurance [facility] [place] [id number] Care Teams Drapery Sewer Hand Relationship Specialty Start Date End Date Physician, No Pcp PCP - General 08/14/24
--- OUTSIDE RECORDS SUMMARY | 2024-08-21 13:59 | XMS_ITS | Encounter Summary ---
Author Organization [facility] Address [address] [place] [address] Care Team Providers Care Dynamometer Repairer Name Role Phone Emma Benjamin Primary Care Provider [phone] Reason for Visit * Reason Onset Date Comments PAC Prior Auth (Add. Info Required) Brianna Valentine 07/04 Encounter Details Date Type Department Care Team (Late st Contact Info) Description 07/25/2024 Telephone [facility] [address] [place] [address] Telephone Intake, Staff PAC Prior Auth (Add. Info Required) - eMme Social History Tobacco Use Types Packs/Day Years [...] with Dr Valentine. Please call back at [phone] documented in this encounter Plan of Treatment Upcoming Encounters Date Type Department Care Team (Late st Contact Info) Description 08/24/2024 3:30 PM EDT Appointment [facility] Neuro[facility] [address] [place] [address] Alva Blank MD [address] [place] [address] Pawan Wild RT(R) 04/16/2025 12:30 PM EST Appointment [facility] [address] [place] [address] Alva Blank MD [address] [place] [address] Barber Wray MD [address] [place] [address] Lorri Cortez documented as of this encounter Visit Diagnoses Not on filedocumented in this encounter Care Teams Dynamometer Repairer Relationship Specialty Start Date End Date Emma Benjamin [address] [place] [address] [place] [address] PCP - General Internal Medicine 02/07/24 documented as of this encounter
== END ==
LOC: HO.CARD 12:54
PROVIDERS: Visit Provider Internal Medicine Cardiovascular Disease
DX: R94.31 Abnormal electrocardiogram [ECG] [EKG] (principal)
CPT/HCPCS: 93306

== ENCOUNTER → 2024-08-21 12:58 | Outpatient (BNV) | payer OTHER, SELFPAY | PROVIDERS: Visit Provider Internal Medicine | DX: R94.31 Abnormal electrocardiogram [ECG] [EKG] (principal) | CPT/HCPCS: 93306 ==

== ENCOUNTER 2024-09-05 08:54 | Outpatient (AMB) | payer OTHER, SELFPAY ==
[2024-09-05 09:03] VITALS: BP 100/60; PULSE 89; BMI 20.6
--- NOTE | 2024-09-05 09:03 | A.OFFVIS_ITS ---
Vital Signs 09/05/24 09:03 09/05/24 09:06 09/05/24 09:07 09/05/24 09:07 Height 5 ft 4 in Weight 120 lb BMI 20.6 BP 100/60 119/71 119/71 126/82 Blood Pressure Location Lt brachial Lt brachial Lt brachial Lt brachial Position Sitting Supine Sitting Standing Pulse 89 90 92 104 H Pulse Source Pulse Oximeter Pulse Oximeter Pulse Oximeter Pulse Oximeter Intake Visit Reasons: f/up tilt at [facility] 0513/ 7 day and echo Allergies vancomycin Allergy (Unknown, Verified 07/11/24 08:19) itching thorat and wheezing amitriptyline Adverse Reaction (Intermediate, Verified 07/11/24 08:19) tiredness sumatriptan Adverse Reaction (Intermediate, Verified 07/11/24 08:19) over alert Medication List - Last Reconciled 09/05/24 by Tl Franco MD albuterol sulfate 90 mcg/actuation 2 puffs inhalation Q4-6H PRN cholecalciferol (vitamin D3) 25 mcg PO DAILY coenzyme Q10 (Ultra CoQ10) 75 mg PO DAILY cyclobenzaprine 10 mg PO BEDTIME PRN 30 days lorazepam 0.5 mg PO DAILY PRN 30 days magnesium oxide 400 mg PO DAILY 30 days montelukast 10 mg PO DAILY [id number]-qrcsio complex no.217 (AdvaClear capsule) caps PO omega-3 fatty acids 1,000 mg PO DAILY HPI Comments Details: Nelly comes for follow-up. She underwent a tilt-table test recently showed orthostatic drop in blood pressure as well as sinus tachycardia, most consistent with postural orthostatic tachycardia syndrome with reproduce symptoms of lightheadedness as well as blood vision. She continues to have symptoms of intermittent headaches and nausea and she says she is very confused about her symptoms. She has increase her fluid intake to a gal a day and has added electrolyte solutions. Notices that her blood pressure is generally okay but sometimes can be as high as 160-170 systolic and she says she feels good during that time. She says she can not participate in exercise due to her symptoms. She is very bothered by these symptoms. [facility] Medical History Moderate persistent asthma, uncomplicated Allergic rhinitis Surgical History Status post surgical removal of both fallopian tubes History of delivery History of esophagogastroduodenoscopy (EGD) History of breast biopsy History of wisdom tooth extraction History of placement of ear tubes History of tonsillectomy and adenoidectomy Family History Father Skin cancer Hypertension CVD (cardiovascular disease) Mother Asthma Hypothyroidism Sister In good health Social History Housing: House Alcohol intake: current Alcohol intake frequency: a few times a week Alcohol type: wine and hard liquor Patient Tobacco Use Status: Never used Tobacco e-Cigarette/Vaping Use: Currently Using Second Hand Smoke Exposure: No service: No Current occupational status: employed Current occupational exposures/hazards: No Cognitive needs: No Hearing needs: No Vision needs: No Review of Systems Const Denies weakness Eyes Reports blurry vision ENT Reports dizziness Card Denies chest pain, Denies chest pain with activity, Denies syncope, Denies rapid heart rate, Denies pedal edema, Denies edema, Denies leg edema, Denies lightheadedness, Denies palpitations, Denies dyspnea, Denies dyspnea on exertion and Denies orthopnea Resp Denies cough, Denies dyspnea and Denies dyspnea on exertion GI Denies hematochezia, Denies change in stool character and Reports nausea Musc Denies abnormal gait, Denies muscle cramps, Denies muscle weakness, Denies numbness, Denies radiating pain into limb and Denies tingling Neuro Denies Abnormal speech present, Denies abnormal gait, Reports dizziness, Denies syncope, Denies numbness, Denies tingling and Denies weakness Endo Denies palpitations Physical Exam Vital Signs: Last Vital Signs Pulse 104 H 09/05/24 09:07 BP 126/82 09/05/24 09:07 BMI result Body Mass Index 20.6 Const General: cooperative, comfortable, no acute distress, well developed, alert, awake and Physically active Nutritional Appearance: well nourished and thin Orientation/consciousness: patient oriented x3 Limitations: no limitations HEENT Head: Yes normocephalic and Yes atraumatic Neck Neck: Yes trachea midline, Yes supple and Yes no JVD Resp Effort & Inspection: normal respiratory effort Auscultation: clear to auscultation bilaterally Cardio Jugular venous distension: no JVD Palpation: normal PMI Rate: regular rate Rhythm: regular rhythm Heart sounds: S1 normal heart sound present, S2 normal heart sound present, no click, no gallops, no murmurs and no rubs GI Auscultation: normal bowel sounds Skin General skin exam: no rashes or lesions noted Neuro General: patient oriented x3 and no focal motor deficits Speech: No Abnormal speech present Extrem General: Yes no clubbing, cyanosis or edema Assessment & Plan Assessment & Plan (1) Dysautonomia: Code(s): G90.1 - Familial dysautonomia [Lam-Day] Category: Medical Plan: Dysautonomia with postural orthostatic tachycardia syndrome noted on tilt-table test. Unclear etiology. This could possibly be related to her head injury. We discussed about management of this. She is already doing compression stockings as well as has increase her fluid and salt intake. We discussed about various was options. We discussed about volume expanders, she is worried about side effects with fludrocortisone. I discussed minimal side effects. I am worried about her high blood pressure readings. I have advised her to continue and keep a close eye of blood pressure at home on fludrocortisone. Advised to stop if she is consistently significantly elevated blood pressures about systolic 160. Advised to maintain adequate hydration. Orthostatic precautions were discussed. Will follow up in the clinic in 6 months time, sooner p.r.n.. Thank you for all owing me to partake in her care Coding Level of Care Code Est Pt Level 4 (35838) Complex EM visit Add On G2211 Diagnoses Dysautonomia G90.1
[2024-09-05 09:06] VITALS: BP 119/71; PULSE 90
[2024-09-05 09:07] VITALS: BP 119/71; BP 126/82; PULSE 104; PULSE 92
--- OUTSIDE RECORDS SUMMARY | 2024-09-05 09:18 | XMS_ITS | Referral Summary ---
Author Organization [facility] Address [address] [id number] Care Team Providers Care Park Activities Coordinator Name Role Phone Emma Benjamin Primary Care Provider [phone] Encounters Date Type Department Care Team Description 08/24/2024 3:25 PM EDT - 08/24/2024 11:59 PM EDT Hospital Encounter [facility] [address] [place], [place] [id number] Alva Blank MD DerPawan box, RT(R) Chronic migraine w/o aura, not intractable, w/o stat migr (Primary Dx) Discharge Disposition: Home or Self Care () 07/27/2024 9:15 AM EDT Office Visit [facility] [place] [address] Ayala Valentine MD Post concussive syndrome (Primary Dx) 07/25/2024 Telephone [facility] [place] [address] Telephone Intake, Staff PAC Prior Auth (Add. Info Required) - Meme 07/09/2024 Telephone [facility] [address] [place] [address] Alva Blank MD 07/06/2024 Telephone [facility] [address] [place] [id number] Program Manager: Alva Cedeño MD Peer to Peer Telephone Call 07/04/2024 myChart Message [facility] [address] [place] [address] Alva Blank MD Topiramate 07/03/2024 Telephone [facility] [address] [place] [address] Alva Blank MD 06/18/2024 [facility] [address] [place] [address] Alva Blank MD Botox 06/07/2024 Telephone [facility] [address] [place] [address] Telephone Intake, Staff PAC Appt Request - Established from Last 3 Months Allergies Active Allergy [...] Care Team (Late st Contact Info) Description 01/04/2025 2:00 PM EDT Appointment [facility] [address] [place] [phone] Alva Blank MD [address] [place] [id number] nAya Nuno 04/16/2025 12:30 PM EST Appointment [facility] [address] [place] [address] Alva Blank MD [address] [place] [address] Barber Wray MD [address] [place] [address] Lorri Cortez Insurance [facility] Care Teams Park Activities Coordinator Relationship Specialty Start Date End Date Emma Benjamin [address] [place] [address] [place] [address] PCP - General Internal Medicine 02/07/24
== END 2024-09-05 09:29 | disposition home or self-care (01) ==
LOC: HO.HCS 08:54
PROVIDERS: PCP Internal Medicine; Visit Provider Internal Medicine Cardiovascular Disease
DX: G90.1 Familial dysautonomia [Riley-Day] (principal)
CPT/HCPCS: 99214

== ENCOUNTER 2025-01-21 15:29 | Outpatient (AMB) | payer OTHER, SELFPAY ==
--- NOTE | 2025-01-21 15:52 | A.OFFPC_ITS ---
Vital Signs 01/21/25 15:53 Height 5 ft 4 in Weight 114 lb 6 oz BMI 19.6 BP 120/68 Blood Pressure Location Lt brachial Position Sitting Respiration 18 Pulse 89 Pulse Source Pulse Oximeter Temp 96.4 F L Temp Source Temporal Artery Scan Pulse Oximetry (%) 95 Oxygen Delivery Method Room Air Intake Visit Reasons: Panic attacks Paper Cutter Required: No Accompanied by: Self / Same As Patient Allergies vancomycin Allergy (Unknown, Verified 01/21/25 16:11) itching thorat and wheezing amitriptyline Adverse Reaction (Intermediate, Verified 01/21/25 16:11) tiredness sumatriptan Adverse Reaction (Intermediate, Verified 01/21/25 16:11) over alert Medication List - Last Reconciled 01/21/25 by Emma Jarvis MD albuterol sulfate 90 mcg/actuation 2 puffs inhalation Q4-6H PRN cholecalciferol (vitamin D3) 25 mcg PO DAILY coenzyme Q10 (Ultra CoQ10) 75 mg PO DAILY cyclobenzaprine 10 mg PO BEDTIME PRN 30 days fludrocortisone 0.1 mg PO DAILY lorazepam 0.5 mg PO DAILY PRN 30 days fj-ny-kocbii complex no.217 (AdvaClear capsule) caps PO omega-3 fatty acids 1,000 mg PO DAILY rizatriptan 10 mg PO Q2-4H PRN 30 days Tobacco use date assessed: 01/21/25 Dental Screening Dental Screen Date: 01/21/25 Did you have a dental visit in the last 12 months?: Yes Did you have a dental problem in the last 6 months where you did not have access to dental care?: No Was dental information given to patient?: Patient has dentist HPI HPI Comments History of Present Illness Details The patient is a 44-year-old female presenting with post-concussion syndrome, migraine, neck pain, and dizziness. She reports a gradual weight loss since her concussion, with her weight decreasing from 120 pounds to 114 pounds. Previously, she had to monitor her diet closely to maintain a weight under 135 pounds, but now she eats freely without significant weight gain. The patient experiences persistent neck pain, describing it as a constant heaviness and discomfort, which she is unsure if it originates from the head or neck. She has undergone physical therapy, vestibular therapy, and intensive care ambulance paramedic, which provided some relief, but the cost of intensive care ambulance paramedic was prohibitive. She reports dizziness, particularly when getting up at night, which recently resulted in a rib injury after a fall. She associates her dizziness with low blood pressure readings, which have been consistently low despite medication. The patient has a history of migraines, for which she has been receiving Botox injections that help alleviate frontal headaches. However, she describes a different type of pain in the neck area that does not respond to migraine treatments. She reports numbness in various parts of her body, including her arms, hands, buttocks, thighs, legs, and feet, although it is not constant. She experiences insomnia, using lorazepam occasionally to aid sleep, and expresses anxiety primarily during medical visits due to the complexity of her symptoms and the lack of clear answers from specialists. [facility] Medical History (Updated 01/21/25 @ 21:06 by Emma Jarvis MD) Screening for hypothyroidism Screening for diabetes mellitus Moderate persistent asthma, uncomplicated Allergic rhinitis Surgical History Status post surgical removal of both fallopian tubes History of delivery History of esophagogastroduodenoscopy (EGD) History of breast biopsy History of wisdom tooth extraction History of placement of ear tubes History of tonsillectomy and adenoidectomy Family History Father Skin cancer Hypertension CVD (cardiovascular disease) Mother Asthma Hypothyroidism Sister In good health Social History Housing: House Alcohol intake: current Alcohol intake frequency: a few times a week Alcohol type: wine and hard liquor Patient Tobacco Use Status: Never used Tobacco e-Cigarette/Vaping Use: Currently Using Second Hand Smoke Exposure: No service: No Current occupational status: employed Current occupational exposures/hazards: No Cognitive needs: No Hearing needs: No Vision needs: No Questionnaire PHQ-9 Over the last 2 weeks, how often have you been bothered by any of the following problems? 1. Little interest or pleasure in doing things: not at all 2. Feeling down, depressed, or hopeless: not at all 3. Trouble falling or staying asleep, or sleeping too much: several days 4. Feeling tired or having little energy: several days 5. Poor appetite or overeating: not at all 6. Feeling bad about yourself - or that you are a failure or have let yourself or your family down: not at all 7. Trouble concentrating on things, such as reading the newspaper or watching television: not at all 8. Moving or speaking so slowly that other people could have noticed. Or the opposite - being so fidgety or restless that you have been moving around a lot more than usual: not at all 9. Thoughts that you would be better off or of hurting yourself in some way: not at all Total score: 2 Depression Screening Interpretation: Negative Depression Screening Done: Yes 42057 - PHQ-9 Billing: Yes Source: Developed by Drs. Tomy Quesada, Clarisa Ly, Jani Osuna and colleagues, with an educational connor from [employer]. Thrive Questionnaire Date Thrive assessed: 07/11/24 I am a: Patient What is your living situation today?: I have a steady place to live Within the past 12 months, did the food you bought not last and you didn't have the money to get more?: Never true Within the past 12 months, did you worry whether your food would run out before you got money to buy more?: Never true Do you have trouble paying for medicines?: No Do you have trouble getting transportation to medical appointments?: No Do you have trouble paying your heating and electricity bill?: No Do you have trouble taking care of your child, family member or friend?: No Do you have trouble with day-to-day activities such as bathing, preparing meals, shopping, managing finances, etc.?: No Are you currently unemployed and looking for a job?: No Are you interested in more education?: No Please select the resources that you would like help with: None Currently or been in a relationship where the following occur: No concerns reported THRIVE Score: 0 AUDIT C Alcohol Use Questionnaire (AUDIT-C) 1. How often do you have a drink containing alcohol?: 2-4 times a month 2. How many drinks containing alcohol do you have on a typical day when you are drinking?: 1 or 2 3. How often do you have six or more drinks on one occasion?: Never Total Score: 2 JENNIFER-7 AMB Questionnaire JENNIFER-7 Date JENNIFER - 7 assessed: 07/11/24 Feeling nervous, anxious, or on edge: 0 = Not at all Not being able to stop or control worryin = Not at all Worrying too much about different things: 0 = Not at all Trouble relaxin = Not at all Being so restless that it is hard to sit still: 0 = Not at all Becoming easily annoyed or irritable: 0 = Not at all Feeling afraid as if something awful might happen: 0 = Not at all Total JENNIFER-7 score (0-4 normal; 5-9 mild; 10-14 moderate; 15-21 severe): 0 Source: Developed by Drs. Tomy Quesada, Clarisa Ly, Jani Osuna and colleagues, with an educational connor from [employer]. JENNIFER-7 Assessment Billing JENNIFER-7 Assessment Tool: JENNIFER-7 Assessment 82719 Review of Systems Const All systems reviewed & are unremarkable except as noted in HPI and below Card Denies chest pain at rest, Denies chest pain with activity, Denies edema, Denies irregular heart rhythm, Denies claudication, Denies dyspnea, Denies dyspnea on exertion, Denies orthopnea, Denies paroxysmal nocturnal dyspnea and Denies slow heart rate Resp Denies cough, Denies dyspnea and Denies dyspnea on exertion GI Denies abdominal pain, Denies change in bowel habits, Denies excessive flatus, Denies nausea and Denies vomiting Denies urinary incontinence, Denies urinary hesitancy and Denies urinary urgency Physical exam (Primary Care) Vital Signs: Last Vital Signs Temp 96.4 F L 01/21/25 15:53 Pulse 89 01/21/25 15:53 Resp 18 01/21/25 15:53 BP 120/68 01/21/25 15:53 Pulse Ox 95 01/21/25 15:53 Oxygen Delivery Method Room Air 01/21/25 15:53 BMI result Body Mass Index 19.6 Tobacco/Smoking Status: Tobacco use Status Tobacco use date assessed 01/21/25 01/21/25 16:00 Patient Tobacco Use Status Never used Tobacco 01/21/25 16:00 e-Cigarette/Vaping Use Currently Using 01/21/25 16:00 PHQ-9: PHQ-9 Score PHQ-9: Total score 2 01/21/25 16:13 Depression Screening Interpretation: Negative Thrive Assessment: Date of Thrive Assessment Date Thrive assessed 07/11/24 01/21/25 16:00 Currently or been in a relationship where the following occur: No concerns reported Resp Effort & Inspection: normal respiratory effort Auscultation: clear to auscultation bilaterally Cardio Jugular venous distension: no JVD Rate: regular rate Rhythm: regular rhythm Heart sounds: S1 normal heart sound present and S2 normal heart sound present Extrem General: Yes full ROM Coding Level of Care Code Est Pt Level 3 (88387) Complex EM visit Add On G2211 Diagnoses Persistent headaches R51.9 Cervical radiculopathy M54.12 Dysautonomia G90.1 Additional Codes JENNIFER-7 Assessment Billing - JENNIFER-7 Assessment Tool: JENNIFER-7 Assessment 04115 ([id number]) PHQ-9 - 89140 - PHQ-9 Billing: Yes ([id number]) Time Spent (min) 19 Assessment & Plan Assessment & Plan (1) Persistent headaches: Code(s): R51.9 - Headache, unspecified Category: Medical (2) Cervical radiculopathy: Code(s): M54.12 - Radiculopathy, cervical region Category: Medical (3) Dysautonomia: Code(s): G90.1 - Familial dysautonomia [Lam-Day] Category: Medical Plan Plan 1. Post-Concussion Syndrome The patient is experiencing symptoms consistent with post-concussion syndrome, including dizziness and cognitive difficulties. Management includes monitoring blood pressure and adjusting fludrocortisone dosage to stabilize symptoms. 2. Migraine The patient receives Botox injections for migraine management, which alleviates frontal headaches. Rizatriptan is prescribed as needed, though it has been ineffective. 3. Neck Pain The patient reports persistent neck pain, with limited range of motion and tenderness. An MRI of the neck has been ordered to assess for potential ligament instability. 4. Dizziness Dizziness is associated with low blood pressure, and the patient is advised to monitor blood pressure regularly. Fludrocortisone dosage has been adjusted to twice daily to help stabilize blood pressure. 5. Hypotension The patient experiences hypotension, with blood pressure readings often below normal limits. Fludrocortisone dosage has been increased to address this issue. 6. Numbness The patient reports intermittent numbness in various body parts, including arms and legs. Further evaluation may be needed depending on MRI results. 7. Insomnia The patient uses lorazepam occasionally to manage insomnia, particularly when unable to sleep. The effectiveness of this treatment is limited to aiding sleep on difficult nights. 8. Anxiety The patient experiences anxiety primarily during medical visits due to the complexity of her symptoms. No specific treatment plan for anxiety was discussed during this visit. Orders: Orders MR cervical spine wo con Today M54.12 - Radiculopathy, cervical region Medications: New fludrocortisone 0.2 mg (2 x 0.1 mg) PO DAILY 30 days 60 tabs 4RF fludrocortisone 0.2 mg (2 x 0.1 mg) PO BID 120 tabs 4RF 30 days Discontinued fludrocortisone Discontinued Reason: Patient Completed Course 0.1 mg PO DAILY 90 tabs 3RF
[2025-01-21 15:53] VITALS: BP 120/68; PULSE 89; RESP 18; TEMP 35.8; O2SAT 95; BMI 19.6
--- OUTSIDE RECORDS SUMMARY | 2025-01-21 19:44 | XMS_ITS | Clinical Summary ---
Author Organization [facility] Address [address] [place] [address] Care Team Providers Care Supervisor Tubing Name Role Phone Emma Benjamin Primary Care Provider [phone] Allergies Active Allergy Reactions Criticality Noted Date [...] Encounters Date Type Department Care Team Description 01/04/2025 1:50 PM EDT - 01/04/2025 11:59 PM EDT Hospital Encounter [facility] [address] [place], [place] [id number] Alva Blank MD Georges Arnie Chronic migraine w/o aura, not intractable, w/o stat migr (Primary Dx) Discharge Disposition: Home or Self Care () 11/27/2024 Telephone [facility] [address] [place] [address] Physical Therapist: Alva Cedeño MD from Last 3 Months Family History Medical [...] 119 02/21/2024 3:11 PM EST Temperature 37 C (98.6 F) 02/21/2024 3:11 PM EST Respiratory Rate 18 [...] Info) Description 04/16/2025 12:30 PM EST Appointment [facility] [address] [place], [place] [phone] Alva Blank MD [address] [place] [address] Barber Wray MD [address] [place] [address] Lorri Cortez Health Maintenance Due Date Last [...] of 2 - PCV) 2000 Mammogram 2021 Alcohol/Substance Use Screening 04/04/2024 Depression Screening and Follow-Up 04/04/2024 Social Drivers of Health Xiomara ual Screening 04/04/2024 COVID-19 Vaccine (3 - 2024- season) 12/03/202412/2020, 05/21/2020 Influenza Vaccine (#1) 2024 DTaP,Tdap,and Td Vaccines (4 - Td or Tdap) 01/23/2032 01/22/2022, 01/13/2016, 11/20/2014 RSV Vaccine (60+ years old a nd patients) (1 - 1-dose 75+ series) 2056 Insurance [facility] Care Teams Supervisor Tubing Relationship Specialty Start Date End Date Emma Benjamin [address] [place] [address] [place] [address] PCP - General Internal Medicine 02/07/24
--- OUTSIDE RECORDS SUMMARY | 2025-01-21 19:44 | XMS_ITS | Encounter Summary ---
Author Organization [facility] Address [address] [facility] [address] [place] [address] Phone Care Team Providers Care Medical Facilities Section Director Name Role Phone Emma Benjamin MD Primary Care Provid er Encounter Details Date Type Department Care Team (Late st Contact Info) Description 10/16/2023 Procedure Pass [facility], Ct Scan - [address] [address] Social History Tobacco Use Types Packs/Day Years Used Date Smoking Tobacco: Never Assessed Education Answer Date Recorded Are you interested in more education? Not on nito e 10/16/2023 Are you concerned about learning? Not on file 10/16/2023 No 10/16/2023 No 10/16/2023 Digital Access Answer Date Recorded No 10/16/2023 No 10/16/2023 Reliable internet access at home? Not on file 10/16/2023 Device with a working camera? Not on file Intimate Partner Violence Answer Date R ecorded Are you denied basic needs s uch as food, clothing, or medical care? No 10/16/2023 In the past 12 months have y ou been in a relationship with a person who hurts, threatens, or tries to control you? No 10/16/2023 Are you denied basic needs s uch as food, clothing, or medical care? No 10/16/2023 In the past 12 months have y ou been in a relationship with a person who hurts, threatens, or tries to control you? No 10/16/2023 Comments Unknown Sex and Gender Information Value Date Recorded Sex Assigned at Female 10/16/2023 8:25 PM EDT Legal Sex Female 8:07 PM EDT Gender Identity Female 10/16/2023 8:25 PM EDT Sexual Orientation Straight 10/16/2023 8: 25 PM EDT documented as of this encounter Functional Status * Calculated C-SSRS Risk Score (Lifetime/Recent) Answer Date of Assessment Author No Risk Indicated 10/16/2023 8:13 PM EDT Angela Jiménez RN * [place] Suicide Severity Rating Scale (Screener/Recent Self-Report) Question Answer Date of Assessment Author 1. Wish to be (Past 1 Month) No 024 8:13 PM EDT Angela Jiménez RN 2. Non-Specific Active Suici octavia Thoughts (Past 1 Month) No 10/16/2023 8:13 PM EDT Leandra Jiménez RN 6. Suicidal Behavior (Lifetime) No 8:13 PM EDT Angela Jiménez RN documented as of this encounter Plan of Treatment Not on file documented as of this encounter Visit Diagnoses Not on filedocumented in this encounter Care Teams Medical Facilities Section Director Relationship Specialty Start Date End Date Emma Benjamin MD [address] [place] [address] PCP - General Internal Medicine 10/16/23 documented as of this encounter Additional Source Comments The information contained in this document represents components of the legal health record. It is not the complete legal health record.[facility]
--- OUTSIDE RECORDS SUMMARY | 2025-01-21 19:44 | XMS_ITS ---
Author Name [facility] Organization Unknown History of Medication Use Medication Directions Dispensed Refills Start Date End Date Stat us fludrocortisone acetate 12/04/2024 active cyclobenzaprine (FLEXERIL) 10 MG tablet Take 1 tablet (10 mg total) by mouth 3 times daily (every 8 hours) as needed for muscle spasms. 10/15/2023 active ibuprofen (MOTRIN) 600 MG tablet Take 1 tablet (600 mg total) by mouth 4 times daily (every 6 hours) as needed for mild pain. 10/15/2023 active ondansetron (ZOFRAN-ODT) 4 MG disintegrating tablet Take 1 tablet (4 mg total) by mouth 3 times daily (every 8 hours) as needed for nausea or vomiting. Place tablet on tongue to dissolve. 10/15/2023 active albuterol sulfate active montelukast (SINGULAIR) 10 MG tablet Take 10 mg by mouth nightly. active Allergies Allergen Reaction Severity Comment Documented Date Source Statu s VANCOMYCIN GI INTOLERANCE/NAUSEA/VOMITING 10/15/2023 [facility] active Problems Problem Status Onset Date Problem Type Date of Resoluti on Source Concussion without loss of consciousness, initial encounter active EncounterDiagnosisAct H HCCT Encounters Encounter Type Encounter Reason Primary Diagnosis Location Date Ambulatory TBE Contusion of thorax, unspecified, initial encounter [facility] 01/11/2025 Ambulatory Concussion without loss of consciousness, initial encounter Concussion without loss of consciousness, initial encounter [facility] 10/15/2023 Care Team Organization Name Specialty Phone Email Start Date End Da te [facility] 01/16/2025 [facility] 01/11/2025 [facility] 10/16/2023 06/20/2024 [facility] 10/15/2023
--- OUTSIDE RECORDS SUMMARY | 2025-01-21 19:45 | XMS_ITS | Clinical Summary ---
Author Organization [facility] Address [address] [facility] [address] [place] [address] Phone Care Team Providers Care Rehab Consultant Name Role Phone Emma Benjamin MD Primary Care Provid er Allergies Active Allergy Reactions Criticality Noted Date Comments Vancomycin 10/16/2023 Medications metoclopramide HCl (REGLAN) 10 MG tablet Take 1 tablet (10 mg total) by mouth 3 (three) times a day as needed (nausea, headache). 20 tablet 10/17/2023 Active Social History Tobacco Use Types Packs/Day [...] Orientation Straight 10/16/2023 8: 25 PM EDT Last Filed Vital Signs Vital Sign Reading Time Taken Comments Blood Pressure 130/91 10/17/2023 12:09 AM EDT Pulse 71 10/17/2023 12:09 AM EDT Temperature 36.8 C (98.2 F) 10/17/2023 12:09 AM EDT Respiratory Rate 16 10/17/2023 12:09 AM EDT Oxygen Saturation 99% 10/17/2023 12:09 AM EDT Inhaled Oxygen Concentration - - Weight 59 kg (130 lb) 10/16/2023 8:14 PM EDT Height 162.6 cm (5' 4 ) 10/16/2023 8:14 PM EDT Body Mass Index 22.31 10/16/2023 8:14 PM EDT Plan of Treatment Health Maintenance Due Date Last Done Comments Adult Td,Tdap Booster 1981 DEPRESSION SCREENING 1993 SMOKING Hx and SMOKELESS TOB ACCO SCREENING 1994 HEPATITIS C SCREENING 12/11/1999 HIV ONE-TIME SCREENING (18-6 5 YEARS) 12/11/1999 PAP SMEAR 2002 MAMMOGRAM 2021 INFLUENZA VACCINE (#1) 2024 COVID-19 VACCINE ( - 2024-2 6 season) 2024 HEPATITIS A VACCINES Aged Out No long er eligible based on patient's age to complete this topic HIB VACCINES Aged Out No longer eligi ble based on patient's age to complete this topic MENINGOCOCCAL VACCINES (ACWY) Aged Out No longer eligible based on patient's age to complete this topic MENINGOCOCCAL VACCINES (B) Aged Out N o longer eligible based on patient's age to complete this topic PNEUMOCOCCAL VACCINES (0-49 years) Aged Out No longer eligible based on patient's age to complete this topic Medical Devices [place] [id number] [place] [id number] [place] [id number] [place] [phone] [place] [id number] [place] [id number] [place] [id number] [employer] Care Teams Rehab Consultant Relationship Specialty Start Date End Date Emma Benjamin MD [address] [facility] [place] [address] PCP - General Internal Medicine 10/16/23 Additional Source Comments The information contained in this document represents components of the legal health record. It is not the complete legal health record.[facility]
--- OUTSIDE RECORDS SUMMARY | 2025-01-21 19:45 | XMS_ITS | Encounter Summary ---
Author Organization [facility] Address [address] [facility] [address] [place] [address] Phone Care Team Providers Care Machine Room Operator Name Role Phone Emma Benjamin MD Primary Care Provid er Encounter Details Date Type Department Care Team (Late st Contact Info) Description 10/16/2023 Procedure Pass [facility], Ct Scan - [address] [address] Social History Tobacco Use Types Packs/Day Years [...] 8:13 PM EDT Angela Jiménez RN * [place] Suicide Severity Rating Scale (Screener/Recent Self-Report) Question [...] filedocumented in this encounter Care Teams Machine Room Operator Relationship Specialty Start Date End Date Emma Benjamin MD [address] [place] [address] PCP - General Internal Medicine 10/16/23 documented as of this encounter Additional Source Comments The information contained in this document represents components of the legal health record. It is not the complete legal health record.[facility]
--- OUTSIDE RECORDS SUMMARY | 2025-01-21 19:45 | XMS_ITS | Clinical Summary ---
Author Organization [facility] Address [address] [place] [address] Care Team Providers Care Business Process Specialist Name Role Phone Unknown Primary Care Provider [phone] Allergies Active Allergy Reactions Criticality Noted [...] 92 10/15/2023 6:45 PM EDT Temperature 37.1 C (98.8 F) 10/15/2023 6:45 PM EDT Respiratory Rate - - Oxygen Saturation 99% [...] (Ages 21-65) 2002 Mammogram 2021 Influenza Vaccine 11/02/2024 COVID-19 Vaccine ( - 2023-2 5 season) 2024 HPV Vaccines (No Doses Required) Completed Pneumococcal Vaccine: Pediat cristiano (0-5 Years) and At-Risk Patients (6 to 49 Years) Aged Out No longer eligible b ased on patient's age to complete [place] [id number] [facility] [employer] Care Teams Business Process Specialist Relationship Specialty Start Date End Date Unknown Unknow Provider Address PCP - General 10/15/23
--- OUTSIDE RECORDS SUMMARY | 2025-01-21 19:45 | XMS_ITS | Patient Health Record ---
Author Organization [facility] Address [address] [place] [address] Care Team Providers Care Resort Desk Clerk Name Role Phone Dorys(inactive) Bertram ARREDONDO Primary Care Provider U Tomy Ivy Unavailable [phone] Reason For Referral No Information Medications Medication SIG (Take, Route, Fr equency, Duration) Notes Start Date End Date Status EVA Active Zofran 4 MG take 1 tablet Orally Q 6 hours prn nausea; Duration: 30 days 04/06/2011 04/04/2024 Active Ventolin HFA Active Problems Problem Type SNOMED Code ICD Code Onset Dates Problem Status W/U Status Risk Notes Problem Nausea (318318780) Nausea alone (787.02) Active confirmed Problem Vomiting (289188989) Vomiting alone (787.03) Active confirmed Problem Left upper quadrant pain (749341142) Abdominal pain, left upper quadrant (789.02) Active confirmed Problem Epigastric pain (38641423) Abdominal pain, epigastric (789.06) Active confirmed Plan Of Treatment Pending Test Test Name Order Date ENDOMYSIAL IGA 02/02/2011 TRANSGLUTAMINASE AB IGA 02/02/2011 TRANSGLUTAMINASE AB IGG 02/02/2011 Future Test Test Name Order Date UPPER GI ENDOSCOPY 02/02/2011 Insurance Providers Payer Name Payer Address Payer Phone Subscriber Number Group Number Insured Name Patient Relationship to Insured Coverage Start Date Coverage End Date [facility] [employer] [facility] [address] [address] [place], [place] [id number] JEFFRY DUNHAM Self - patient is the insured Medical (General) History Medical History History ICD Code asthma she denies any history of diabetes, hear t disease, nor kidney disease. Surgical History Surgery Date(Month/Year) tonsils
== END 2025-01-21 16:36 | disposition home or self-care (01) ==
PROVIDERS: PCP Internal Medicine; Visit Provider Internal Medicine
DX: R51.9 Headache, unspecified (principal); M54.12 Radiculopathy, cervical region; G90.1 Familial dysautonomia [Riley-Day]

== ENCOUNTER → 2025-01-21 15:29 | Outpatient (BNVA) | payer OTHER, SELFPAY | PROVIDERS: PCP Internal Medicine; Visit Provider Internal Medicine | DX: M54.2 Cervicalgia (principal); G43.909 Migraine, unspecified, not intractable, without status migrainosus; F07.81 Postconcussional syndrome; R42 Dizziness and giddiness; R20.0 Anesthesia of skin; G47.00 Insomnia, unspecified; G90.1 Familial dysautonomia [Riley-Day]; I95.9 Hypotension, unspecified; F41.9 Anxiety disorder, unspecified | CPT/HCPCS: 96127; 99212 ==

== ENCOUNTER → 2025-03-11 19:14 | Outpatient (BNV) | payer OTHER, SELFPAY | PROVIDERS: PCP Internal Medicine; Visit Provider Radiology Diagnostic Radiology | DX: M47.22 Other spondylosis with radiculopathy, cervical region (principal) | CPT/HCPCS: 72141 ==

== ENCOUNTER 2025-03-11 19:20 | Outpatient (REF) | payer OTHER, SELFPAY ==
--- NOTE | ~2025-03-11 | MR_ITS ---
EXAMINATION: MR CERVICAL SPINE WITHOUT CONTRAST CLINICAL INFORMATION: M 54.12. Radiculopathy, cervical region. COMPARISON: None available. TECHNIQUE: MRI of the cervical spine was obtained using routine sequences without contrast. FINDINGS: Craniocervical junction is intact. Normal position of the cerebellar tonsils. No bone marrow STIR signal abnormality. Multilevel disc desiccation pronounced at C5-6. There is normal alignment. The cervical spinal cord signal is normal. C2-3: No disc herniation. No neuroforamina stenosis. C3-4: No disc herniation. No neuroforamina stenosis. C4-5: Broad-based disc osteophyte complex formation. No central spinal canal or neuroforamina stenosis. C5-6: Central disc osteophyte complex formation resulting in ventral deformity of the thecal sac. No neuroforamina stenosis. C6-7: No disc herniation. No neuroforamina stenosis. C7-T1: No disc herniation. No neuroforamina stenosis. Small left perineural cysts. No prevertebral compartment hematoma, mass or fluid collection. Flow-void signal within the main vessels is normal. Codominant vertebral arteries. MR/MR cervical spine wo con IMPRESSION: Cervical spondylosis C4-5 and C5-C6 pronounced at C5-6 without cord compression, cord edema and or myelopathy. Electronically signed by: Chema Phan MD 03/12/2025 06:51 AM EST
--- OUTSIDE RECORDS SUMMARY | 2025-03-12 02:26 | XMS_ITS | Clinical Summary ---
Author Organization [facility] Address [address] [place] [address] Care Team Providers Care Associate Accountant Name Role Phone Emma Benjamin Primary Care Provider [phone] Allergies Active Allergy Reactions Criticality Noted Date [...] and 50 mg at night. 120 tablet 5 Active Active Problems Problem Noted Date Diagnosed Date Chronic migraine w/o aura, not intractable, w/o stat migr 06/06/2024 Encounters Date Type Department Care Team Description 01/04/2025 1:50 PM EDT - 01/04/2025 11:59 PM EDT Hospital Encounter [facility] [address] [id number] Alva Blank MD Georges, Patrick Chronic migraine w/o aura, not intractable, w/o stat migr (Primary Dx) Discharge Disposition: Home or Self Care () from Last 3 Months Family History Medical [...] 02/21/2024 3:11 PM EST Plan of Treatment Health Maintenance Due Date [...] Health Xiomara ual Screening 04/04/2024 Influenza Vaccine (#1) 2024 COVID-19 Vaccine (3 - 2024- season) 12/03/202412/2020, 05/21/2020 DTaP,Tdap,and Td Vaccines (4 - Td or Tdap) 01/23/2032 01/22/2022, 01/13/2016, 11/20/2014 Insurance [facility] Care Teams Associate Accountant Relationship Specialty Start Date End Date Emma Benjamin [address] [place] [address] [place] [address] PCP - General Internal Medicine 02/07/24
--- OUTSIDE RECORDS SUMMARY | 2025-03-12 02:26 | XMS_ITS | Encounter Summary ---
Author Organization [facility] Address [address] [facility] [address] [place] [address] Phone Care Team Providers Care Permit Coordinator Name Role Phone Emma Benjamin MD Primary Care Provid er Encounter Details Date Type Department Care Team (Late st Contact Info) Description 10/16/2023 Procedure Pass [facility], Ct Scan - [address] [address] Social History Tobacco Use Types Packs/Day Years [...] 8:13 PM EDT Angela Jiménez RN * [place] Suicide Severity Rating Scale (Screener/Recent Self-Report) Question [...] on filedocumented in this encounter Care Teams Permit Coordinator Relationship Specialty Start Date End Date Emma Benjamin MD [address] [place] [address] PCP - General Internal Medicine 10/16/23 documented as of this encounter Additional Source Comments The information contained in this document represents components of the legal health record. It is not the complete legal health record.[facility]
--- OUTSIDE RECORDS SUMMARY | 2025-03-12 02:26 | XMS_ITS | Clinical Summary ---
Author Organization [facility] Address [address] [place] [address] Phone Care Team Providers Care Head Of Human Resources Name Role Phone Physician, No Pcp Primary Care Provider Unavaila ble Social History Tobacco Use Types Packs/Day Years [...] Cervical Cancer Screening: P ap Smear 2002 HPV Vaccines (1 - 3-dose SCD M series) 2008 Depression Screening 04/04/2024 HIV Screening 07/04/2024 Hepatitis C Screening 07/04/2024 Social Influencers of Health Screening 07/04/2024 COVID-19 Vaccine (3 - 2024-2 6 season) 2024 06/10/2020, 05/21/2020 Influenza Vaccine (#1) 2024 DTaP,Tdap,and Td Vaccines (4 - Td or Tdap) 01/23/2032 01/22/2022, 01/13/2016, 11/20/2014 RSV Immunization Adult Patients (1 - 1-dose 75+ series) 2056 HIB Vaccines Aged Out No longer eligi [...] 5 Years) and At-Risk Patients (6 to 49 Years) Aged Out No longer eligible b ased on patient's age to complete this topic RSV Immunization Patients Under 20 months Aged Out No longer eligible b ased on patient's age to complete this topic Varicella Vaccines Aged Out No longer eligible based on patient's age to complete [place] [id number] [facility] [place] [id number] Care Teams Head Of Human Resources Relationship Specialty Start Date End Date Physician, No Pcp PCP - General 08/14/24
--- OUTSIDE RECORDS SUMMARY | 2025-03-12 02:26 | XMS_ITS | Encounter Summary ---
Author Organization [facility] Address [address] [facility] [address] [place] [address] Phone Care Team Providers Care Reconcilement Clerk Name Role Phone Emma Benjamin MD Primary Care Provid er Encounter Details Date Type Department Care Team (Late st Contact Info) Description 10/16/2023 Procedure Pass [facility], Ct Scan - [address] [address] Social History Tobacco Use Types Packs/Day Years [...] 8:13 PM EDT Angela Jiménez RN * [place] Suicide Severity Rating Scale (Screener/Recent Self-Report) Question [...] on filedocumented in this encounter Care Teams Reconcilement Clerk Relationship Specialty Start Date End Date Emma Benjamin MD [address] [place] [address] PCP - General Internal Medicine 10/16/23 documented as of this encounter Additional Source Comments The information contained in this document represents components of the legal health record. It is not the complete legal health record.[facility]
--- OUTSIDE RECORDS SUMMARY | 2025-03-12 02:26 | XMS_ITS | Clinical Summary ---
Author Organization [facility] Address [address] [place] [address] Care Team Providers Care Supervisor Cell Efficiency Name Role Phone Unknown Primary Care Provider [phone] Allergies Active Allergy Reactions Criticality Noted [...] Influenza Vaccine 11/02/2024 COVID-19 Vaccine ( - 2024-2 6 season) 2024 HPV Vaccines (No Doses Required) Completed Pneumococcal Vaccine: Pediat cristiano (0-5 Years) and At-Risk Patients (6 to 49 Years) Aged Out No longer eligible b ased on patient's age to complete [place] [id number] [facility] [employer] Care Teams Supervisor Cell Efficiency Relationship Specialty Start Date End Date Unknown Unknow Provider Address PCP - General 10/15/23
--- OUTSIDE RECORDS SUMMARY | 2025-03-12 02:26 | XMS_ITS | Clinical Summary ---
Author Organization [facility] Address [address] [facility] [address] [place] [address] Phone Care Team Providers Care Polysomnographer Name Role Phone Emma Benjamin MD Primary [...] [place] [id number] [place] [id number] [place] [id number] [place] [id number] [place] [id number] [place] [id number] [employer] [place] [id number] [employer] Care Teams Polysomnographer Relationship Specialty Start Date End Date Emma Benjamin MD [address] [place] [address] PCP - General Internal Medicine 10/16/23 Additional Source Comments The information contained in this document represents components of the legal health record. It is not the complete legal health record.[facility]
== END 2025-03-11 19:21 | disposition home or self-care (01) ==
LOC: HO.MRI 19:20
PROVIDERS: PCP Internal Medicine; Visit Provider Internal Medicine
DX: M54.12 Radiculopathy, cervical region (principal)
CPT/HCPCS: 72141

== ENCOUNTER 2025-03-12 09:21 | Outpatient (AMB) | payer OTHER, SELFPAY ==
[2025-03-12 09:25] VITALS: BP 104/62; PULSE 83; O2SAT 98; BMI 20.1
--- NOTE | 2025-03-12 09:25 | MHC.PC.OV ---
Vital Signs 03/12/25 09:25 Height 5 ft 4 in Weight 117 lb BMI 20.1 BP 104/62 Blood Pressure Location Lt brachial Position Sitting Pulse 83 Pulse Source Pulse Oximeter Pulse Oximetry (%) 98 Oxygen Delivery Method Room Air Intake Visit Reasons: annual exam [employer] Worker Required: No Accompanied by: Self / Same As Patient Allergies vancomycin Allergy (Unknown, Verified 03/12/25 09:46) itching thorat and wheezing amitriptyline Adverse Reaction (Intermediate, Verified 03/12/25 09:46) tiredness sumatriptan Adverse Reaction (Intermediate, Verified 03/12/25 09:46) over alert Medication List - Last Reconciled 03/12/25 by Emma Jarvis MD albuterol sulfate 90 mcg/actuation 2 puffs inhalation Q4-6H PRN cholecalciferol (vitamin D3) 25 mcg PO DAILY coenzyme Q10 (Ultra CoQ10) 75 mg PO DAILY cyclobenzaprine 10 mg PO BEDTIME PRN 30 days fludrocortisone 0.2 mg (2 x 0.1 mg) PO BID 30 days gabapentin 100 mg PO TID 30 days lorazepam 0.5 mg PO DAILY PRN 30 days [id number] complex no.217 (AdvaClear capsule) caps PO omega-3 fatty acids 1,000 mg PO DAILY rizatriptan 10 mg PO Q2-4H PRN 30 days Tobacco use date assessed: 01/21/25 Dental Screening Dental Screen Date: 01/21/25 HPI HPI Comments History of Present Illness Details The patient is a 44 year old female presenting for a physical exam. Her primary complaints include neck pain, headaches, dizziness, blurry vision, and paresthesias in the arms, legs, and down the spine. These symptoms are worsening, which she associates with her Botox injections for headaches wearing off. The patient receives Botox injections from her neurologist for headaches, with the next dose due next month. She reports the effects last for a maximum of two months, rather than the expected three to four months, and her pain is currently almost unbearable. She has tried multiple headache medications including rosuvastatin, simvastatin, and sumatriptan. A recent MRI of the neck revealed arthritis in C4-C5 and C5-C6. The patient notes that her pain is at the very top of her neck, and C1 was not specifically mentioned in the report. She has previously undergone physical therapy for her neck, but the allotted sessions ran out. The patient also reports symptoms of dysautonomia, including worsening dizziness, blurry vision, and tingling in her extremities and spine, which she feels may be an overactive nervous system response. Current medications include vitamin D, CoQ10, cyclobenzaprine as needed, lorazepam as needed, fludrocortisone 0.2 mg once daily, and she recently restarted montelukast 10 mg. She was recently started on gabapentin 100 mg three times a day, which she feels helps with nausea but not pain. She has known allergies to vancomycin, amitriptyline, and sumatriptan. Past surgical history includes a , endoscopy, breast biopsy, wisdom tooth extraction, placement of ear tubes, tonsillectomy, adenoidectomy, and removal of fallopian tubes. Her mother has a history of asthma and a thyroid condition. Her father has a history of high blood pressure, skin cancer, and heart disease. [facility] Medical History (Updated 03/12/25 @ 10:02 by Emma Jarvis MD) Screening for hypothyroidism Screening for diabetes mellitus Moderate persistent asthma, uncomplicated Allergic rhinitis Surgical History Status post surgical removal of both fallopian tubes History of delivery History of esophagogastroduodenoscopy (EGD) History of breast biopsy History of wisdom tooth extraction History of placement of ear tubes History of tonsillectomy and adenoidectomy Family History Father Skin cancer Hypertension CVD (cardiovascular disease) Mother Asthma Hypothyroidism Sister In good health Social History Housing: House Alcohol intake: current Alcohol intake frequency: a few times a week Alcohol type: wine and hard liquor Patient Tobacco Use Status: Never used Tobacco Tobacco use type: Cigarette e-Cigarette/Vaping Use: Currently Using Second Hand Smoke Exposure: No service: No Current occupational status: employed Current occupational exposures/hazards: No Cognitive needs: No Hearing needs: No Vision needs: No Questionnaire Thrive Questionnaire Date Thrive assessed: 01/21/25 I am a: Patient What is your living situation today?: I have a steady place to live Within the past 12 months, did the food you bought not last and you didn't have the money to get more?: Never true Within the past 12 months, did you worry whether your food would run out before you got money to buy more?: Never true Do you have trouble paying for medicines?: No Do you have trouble getting transportation to medical appointments?: No Do you have trouble paying your heating and electricity bill?: No Do you have trouble taking care of your child, family member or friend?: No Do you have trouble with day-to-day activities such as bathing, preparing meals, shopping, managing finances, etc.?: No Are you currently unemployed and looking for a job?: No Are you interested in more education?: No Please select the resources that you would like help with: None Currently or been in a relationship where the following occur: No concerns reported THRIVE Score: 0 JENNIFER-7 AMB Questionnaire JENNIFER-7 Date JENNIFER - 7 assessed: 07/11/24 Source: Developed by Drs. Tomy Quesada, Clarisa Ly, Jani Osuna and colleagues, with an educational connor from [employer]. Review of Systems Const All systems reviewed & are unremarkable except as noted in HPI and below Card Denies chest pain at rest, Denies chest pain with activity, Denies edema, Denies irregular heart rhythm, Denies claudication, Denies dyspnea, Denies dyspnea on exertion, Denies orthopnea, Denies paroxysmal nocturnal dyspnea and Denies slow heart rate Resp Denies cough, Denies dyspnea and Denies dyspnea on exertion Physical exam (Primary Care) Vital Signs: Last Vital Signs Pulse 83 03/12/25 09:25 BP 104/62 03/12/25 09:25 Pulse Ox 98 03/12/25 09:25 Oxygen Delivery Method Room Air 03/12/25 09:25 BMI result Body Mass Index 20.1 Tobacco/Smoking Status: Tobacco use Status Tobacco use date assessed 01/21/25 03/12/25 09:32 Patient Tobacco Use Status Never used Tobacco 03/12/25 09:32 Tobacco use type Cigarette 03/12/25 09:32 e-Cigarette/Vaping Use Currently Using 03/12/25 09:32 Thrive Assessment: Date of Thrive Assessment Date Thrive assessed 01/21/25 03/12/25 09:32 Currently or been in a relationship where the following occur: No concerns reported [facility] Head: Yes normal to inspection, Yes normocephalic and Yes atraumatic Ears: external ears normal Eyes General: appearance normal, both eyes and all related structures Eyelids: Yes eyelids normal Conjunctivae: conjunctivae normal Neck Neck: Yes normal visual inspection and Yes supple Resp Effort & Inspection: normal respiratory effort Auscultation: clear to auscultation bilaterally Cardio Jugular venous distension: no JVD Rate: regular rate Rhythm: regular rhythm Heart sounds: S1 normal heart sound present and S2 normal heart sound present GI Inspection: Yes normal to inspection Palpation (GI): Soft to palpation and nontender Auscultation: normal bowel sounds Skin General skin exam: no rashes or lesions noted Neuro General: no focal motor deficits Extrem General: Yes full ROM Psych Appearance: grossly normal Coding Level of Care Code Est Pt Level 3 (57873) Est Pt Prev Care 40-64y(76831) Diagnoses Adult general medical exam Z00.00 Dysautonomia G90.1 Cervical radiculopathy M54.12 BPPV (benign paroxysmal positional vertigo) H81.10 Time Spent (min) 33 Assessment & Plan Assessment & Plan (1) Adult general medical exam: Code(s): Z00.00 - Encounter for general adult medical examination without abnormal findings Category: Medical (2) Dysautonomia: Code(s): G90.1 - Familial dysautonomia [Lam-Day] Category: Medical (3) Cervical radiculopathy: Code(s): M54.12 - Radiculopathy, cervical region Category: Medical (4) BPPV (benign paroxysmal positional vertigo): Code(s): H81.10 - Benign paroxysmal vertigo, unspecified ear Category: Medical Plan Plan 1. Physical exam Repeat in a year. 2. Neck Pain And Headache The patient's neck pain and headaches are severe, believed to be related to her Botox therapy wearing off. An MRI has shown arthritis at C4-C6, though her pain is localized to the upper cervical region. The dose of gabapentin will be increased from 100 mg to 300 mg three times a day, with the option to take it twice a day, to help with neuropathic pain. The patient will be referred for vestibular therapy again. The patient inquired about a spinal specialist consultation, but it was noted that they would likely not intervene based on the current MRI findings. It was suggested that her neurologist may not have prescribed other oral headache medications like Nurtec because her pain is considered more muscular in origin. 3. Dysautonomia The patient attributes her worsening dizziness, blurry vision, and paresthesias to an overactive nervous system response due to dysautonomia. The increase in gabapentin dosage is intended to help manage these symptoms. A referral for vestibular therapy will be placed again to address the dizziness. Orders: Orders MM tomosynthesis screening BI Today Z12.31 - Encounter for screening mammogram for malignant neoplasm of breast PT Evaluation and Treatment Today H81.10 - Benign paroxysmal vertigo, unspecified ear Medications: New gabapentin 300 mg PO TID 90 caps 3RF 30 days Discontinued gabapentin Discontinued Reason: Patient Completed Course 100 mg PO TID 30 days 90 caps 0RF
== END 2025-03-12 10:00 | disposition home or self-care (01) ==
LOC: HO.HMCH 09:21
PROVIDERS: PCP Internal Medicine; Visit Provider Internal Medicine
DX: Z00.00 Encounter for general adult medical examination without abnormal findings (principal); G90.1 Familial dysautonomia [Riley-Day]; M54.12 Radiculopathy, cervical region; H81.13 Benign paroxysmal vertigo, bilateral